=== PATIENT | female | born 1965 | race Caucasian/White ===

== ENCOUNTER → 2016-07-11 | Outpatient (CLI) | payer BC ==
[~2016-07-11] MED LIST: ACHD5005 PO; ASPI-587 PO; AZIT-21 PO; CLCX200C PO; CPR500T PO; CRESTOR40 MG PO; DEXL60CA PO; ESTR2TAB4 PO; GABA-488 PO; GBPN100C PO; HYDR-3454 PO; HYDR-3720 PO; HYDR200T46 PO; MAGN250T7 PO; NAPR220C11 PO; NF-DICLTB PO; OMEG1CAP24 PO; ONDA4TAB11 PO; PARO40TA2 PO; PRX20T PO; ROSU10TA12 PO; SIMV20TA3 PO; TOPI25TA2 PO; TOPI50TA2 PO; VERA120C2 PO
--- OUTSIDE RECORDS SUMMARY | 2016-07-11 07:39 | XMS REPORT | Continuity of Care Document ---
Author Author [facility] Organization [facility] Address Unknown Phone Unavailable Care Team Providers Care Medical Office Assistant Name Role Phone PCP Unavailable Source Comments Some departments are not documenting in the electronic medical record. If you do not see the information that you expected, contact Release of Information in the Health Information Management department at [phone] for further assistance in locating additional records.[facility] Active Allergies and Adverse Reactions Not on File Current Medications Not on file Active Problems Not on file Social History Tobacco Use Types Packs/Day Years Used Date Never Assessed Plan of Care Health Maintenance Due Date Last Done Comments Physical (Comprehensive) 1973 Exam Pertussis Vaccine 1977 Tetanus Vaccine 1983 Cervical Cancer Screening 1987 Breast Cancer Screening 2006 Influenza Vaccine 01/21/2016 Results from Last 3 Months Not on file
--- NOTE | 2016-07-11 08:45 | Diagnostic Imaging Report ---
PROCEDURE: MRI lumbar spine. TECHNIQUE: Multiplanar, multisequence MRI of the lumbar spine was performed without contrast. INDICATION: Low back pain. COMPARISON: None. FINDINGS: Normal alignment. Vertebral body heights are maintained. Benign hemangioma in the L2 vertebral body. Bone marrow signal is otherwise unremarkable. No abnormal signal in the conus which terminates at L1. Normal configuration of the cauda equina without evidence of arachnoiditis. The visualized paravertebral soft tissue are unremarkable. At L4-L5, there is a right subarticular through extraforaminal disc extrusion that contacts both the exiting L4 and traversing L5 nerve roots. There is no other spinal canal, lateral recess or neural foraminal narrowing. There is moderate degenerative facet arthropathy throughout the lumbar spine. IMPRESSION: 1. Disc extrusion at L4-L5 contacts both the right exiting L4 and traversing L5 nerve roots. 2. Moderate degenerative facet arthropathy throughout the lumbar spine. Dictated by: Dictated on workstation # [id number]
== END ==
LOC: RAD 07:35
PROVIDERS: ATTEND Family Medicine
DX: M51.26 Other intervertebral disc displacement, lumbar region (principal)
CPT/HCPCS: 72148

== ENCOUNTER 2016-07-22 11:54 | Outpatient (CLI) | payer BC ==
[~2016-07-22] VITALS: Ht 172.7 cm; Wt 95.3 kg
--- OUTSIDE RECORDS SUMMARY | 2016-07-22 11:57 | XMS REPORT | Continuity of Care Document ---
Author Author [facility] Organization [facility] Address Unknown Phone Unavailable Care Team Providers Care Director Of Integrated Marketing Name Role Phone PCP Unavailable Source Comments Some departments are not documenting in the electronic medical record. If you do not see the information that you expected, contact Release of Information in the Health Information Management department at [phone] for further assistance in locating additional records.[facility] Active Allergies and Adverse Reactions Not on [...]
[2016-07-22] MEDS ORDERED: BUPIVACAINE 0.25% 30 ML (SENSORCAINE) VIAL ONE (12:09)
[2016-07-22] MEDS ORDERED: TRIAMCINOLONE ACET (KENALOG-40) 40 MG/ML 1 ML VIAL ONE (12:09)
[2016-07-22 12:21] VITALS: BP 137/90
[2016-07-22 12:54] VITALS: BP 138/81
--- NOTE | 2016-07-22 14:51 | Pain Medicine-Procedure ---
Procedure Pre-Op/Post-Op Diagnosis Diagnosis: disc disorder with radiculopathy, lumbar Indications for Operation low back pain Attending Surgeon Jaye Procedure Date of Service: Jul 22, 2016 Procedure: Lumbar Epidural Steroid Injection at the L4-L5 level under Fluoroscopic Guidance Procedure: Patient was identified in the holding area. After risks, benefits, and alternatives were discussed with the patient, informed consent was obtained. Patient was brought to the fluoroscopy suite and placed prone on the procedure room table. A time out was performed. Vital signs were monitored throughout the procedure. The patients low back was prepped and draped in the usual sterile fashion. The patients skin was anesthetized using 2% Lidocaine. A Tuohy needle was inserted and advanced to the L4-L5 epidural space under fluoroscopic guidance using the loss of resistance technique and intermittent projection of fluoroscopy. There was no paresthesia with needle placement. The needle position was confirmed in both the AP and lateral view.no contrast was used secondary to history of allergy to contrast dye After negative aspiration for heme or CSF, 2 ml of 0.25% Bupivicaine, 2ml of preservative free normal saline, and 80mg of Kenalog was injected. The needle was removed and a sterile bandage was placed and the patient was transferred to the recovery area in stable condition. After a brief period of observation, patient was discharged to home with no new neurological deficits and no apparent complications. Complications none MELIA TEJEDA MD Jul 22, 2016 2:51 pm
== END 2016-07-22 12:55 | disposition home or self-care (01) ==
LOC: CARD 11:54
PROVIDERS: ATTEND Pain Medicine Pain Medicine
DX: M51.16 Intervertebral disc disorders with radiculopathy, lumbar region (principal); M47.816 Spondylosis without myelopathy or radiculopathy, lumbar region; Z79.899 Other long term (current) drug therapy
CPT/HCPCS: 62323

== ENCOUNTER 2016-08-15 12:03 | Outpatient (CLI) | payer BC ==
[~2016-08-15] VITALS: Ht 172.7 cm; Wt 95.3 kg
[2016-08-15] MEDS ORDERED: BUPIVACAINE 0.25% 30 ML (SENSORCAINE) VIAL ONE (12:13)
[2016-08-15] MEDS ORDERED: TRIAMCINOLONE ACET (KENALOG-40) 40 MG/ML 1 ML VIAL ONE (12:13)
[2016-08-15 12:18] VITALS: BP 146/103
[2016-08-15 12:58] VITALS: BP 164/99
--- NOTE | 2016-08-15 14:04 | Pain Medicine-Procedure ---
Procedure Pre-Op/Post-Op Diagnosis Diagnosis: disc disorder with radiculopathy, lumbar Indications for Operation Low back pain Attending Surgeon Jaye Procedure Date of Service: Aug 15, 2016 Procedure: Lumbar Epidural Steroid Injection at the L4-L5 level under Fluoroscopic Guidance Procedure: Patient was identified in the holding area. After risks, benefits, and alternatives were discussed with the patient, informed consent was obtained. Patient was brought to the fluoroscopy suite and placed prone on the procedure room table. A time out was performed. Vital signs were monitored throughout the procedure. The patients low back was prepped and draped in the usual sterile fashion. The patients skin was anesthetized using 2% Lidocaine. A Tuohy needle was inserted and advanced to the L4-L5 epidural space under fluoroscopic guidance using the loss of resistance technique and intermittent projection of fluoroscopy. There was no paresthesia with needle placement. The needle position was confirmed in both the AP and lateral view. No contrast was used secondary to history of contrast allergy, after negative aspiration for heme or CSF, 2 ml of 0.25% Bupivicaine, 2ml of preservative free normal saline, and 80mg of Kenalog was injected. The needle was removed and a sterile bandage was placed and the patient was transferred to the recovery area in stable condition. After a brief period of observation, patient was discharged to home with no new neurological deficits and no apparent complications. Complications None MELIA TEJEDA MD Aug 15, 2016 2:04 pm
== END 2016-08-15 13:01 | disposition home or self-care (01) ==
LOC: CARD 12:03
PROVIDERS: ATTEND Pain Medicine Pain Medicine
DX: M51.16 Intervertebral disc disorders with radiculopathy, lumbar region (principal); Z79.899 Other long term (current) drug therapy
CPT/HCPCS: 62323

== ENCOUNTER 2017-01-26 15:21 | Outpatient (CLI) | payer BC ==
[~2017-01-26] VITALS: Ht 172.7 cm; Wt 91.6 kg
[2017-01-26] MEDS ORDERED: methylPREDNISolone 80 MG/ML (DEPO MEDROL) VIAL ONE (15:23)
[2017-01-26 15:37] VITALS: BP 154/95
[2017-01-26 15:52] VITALS: BP 161/100
--- NOTE | 2017-01-31 11:33 | OPERATIVE REPORT ---
DATE OF SERVICE: DIAGNOSIS: Lumbar radiculopathy. PROCEDURE: Fluoroscopic guided interlaminar epidural steroid injection. PROCEDURE IN DETAIL: After obtaining informed consent from the patient, the patient's chart was reviewed. The patient was then brought to the procedure room and placed in the prone position. A timeout was performed. The back was prepped with antiseptic solution and under fluoro guidance, the patient's lumbar spine was identified at the level of L5-S1. The S1 vertebra was identified with fluoro guidance and approximately 2 mL of 1.5% lidocaine solution was used to anesthetize the skin directly down to the pedicle of the S1 and under fluoro guidance, the tract was anesthetized up to the interlaminar space and the ligamentum flavum. This needle was withdrawn. Then, a 20-gauge 3.5 inch Tuohy needle was then directed following the same tract that was anesthetized with the spinal needle. Using loss of resistance, the epidural space was identified and then the syringe was switched for contrast solution which was injected, approximately 1 mL. After secondary confirmation of epidural access, another syringe was placed and 80 mg of Depo-Medrol was injected. The Tuohy needle was then flushed out with approximately 2 mL of the normal saline used from the loss of resistance syringe. Band-Aids were applied to all the procedure sites. The patient tolerated the procedure well and was taken to the recovery room in stable condition. COMPLICATIONS: None. Job ID: [id number] DocumentID: [id number] Dictated Date: 01/30/2017 10:46:28 We[employer] Eradicator Date: 01/30/2017 12:27:00 Dictated By: DANNIE MCCRAY DO
== END 2017-01-26 16:03 ==
LOC: CARD 15:21
PROVIDERS: ATTEND Pain Medicine Interventional Pain Medicine
DX: M51.37 Other intervertebral disc degeneration, lumbosacral region (principal); M47.817 Spondylosis without myelopathy or radiculopathy, lumbosacral region; M54.16 Radiculopathy, lumbar region
CPT/HCPCS: 62323

== ENCOUNTER 2018-08-06 12:53 | Emergency (ER) | payer BC ==
[~2018-08-06] VITALS: Ht 172.7 cm; Wt 83.5 kg
--- OUTSIDE RECORDS SUMMARY | 2018-08-06 13:11 | XMS REPORT | Clinical Summary ---
Author Author [facility] Organization [facility] Address Unknown Phone Unavailable Care Team Providers Care Shower Screen Installer Name Role Phone Sweetie Bell MD PCP Morgan Mi OD Unavailable Source Comments Some departments are not documenting in the electronic medical record. If you do not see the information that you expected, contact Release of Information in the Health Information Management department at [phone] for further assistance in locating additional records.[facility] Allergies Comments Active Allergy Reactions Severity Noted Date Fenofibrate Micronized DIARRHEA, Low 09/06/2017 STOMACH UPSET Sulfamethoxazole-Trimetho UNKNOWN Low 09/06/2017 prim Cephalosporins HIVES Medium 08/29/2017 Rosuvastatin UNKNOWN Low 09/06/2017 Cefadroxil UNKNOWN Low 09/06/2017 Iodine UNKNOWN Low 09/06/2017 Atorvastatin UNKNOWN Low 09/06/2017 Cream Metronidazole RASH Medium 03/05/2018 Meloxicam UNKNOWN Low 09/06/2017 Morphine UNKNOWN Low 09/06/2017 Morphine Sulfate UNKNOWN Low 08/29/2017 IVP DYE Unclassified Drug UNKNOWN Low 09/06/2017 Penicillins HIVES Medium 08/29/2017 Sulfa (Sulfonamide HIVES Medium 08/29/2017 Antibiotics) Simvastatin UNKNOWN Low 09/06/2017 Medications End Date Status Medication Sig Dispensed Refills Start Date Active citalopram (CELEXA) 20 mg Take 40 mg by 0 tablet mouth daily. Active SUMAtriptan (IMITREX) 6 Inject 6 mg 0 mg/0.5 mL injection under the skin once. Active topiramate (TROKENDI XR) Take by 0 200 mg cp24 mouth. Active estradiol (ESTRACE) 2 mg Take 1 mg by 0 tablet mouth daily. Active gabapentin 300 mg Tb24 Take by 0 mouth. Active cholecalciferol (VITAMIN Take 2,000 0 D-3) 1,000 units tablet Units by mouth daily. Active Magnesium 250 mg tab Take by 0 mouth. Active fluocinonide (LIDEX) 0.05 Apply 0 % topical ointment topically to affected area twice daily. Active HYDROcodone/acetaminophen Take 1 tablet 0 (NORCO) 5/325 mg tablet by mouth every 4 hours as needed for Pain Active FEXOFENADINE/PSEUDOEPHEDR Take by 0 INE (LUAN-D 24 HOUR mouth. PO) Active LISINOPRIL PO Take 10 mg by 0 mouth daily. Active desonide(+) (TRIDESILON; Apply 0 DESOWEN; DELONIDE) 0.05 % topically to topical cream affected area daily as needed. Active fluticasone (FLONASE) 50 Apply 2 0 mcg/actuation nasal spray sprays to each nostril as directed daily as needed. Shake bottle gently before using. 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 Active methotrexate PF 25 mg/mL Inject 0.8 mL 8 mL 1 injection under the 8 skin every 7 days. Active Insulin Syringe-Needle Use to 4 Syringe 1 U-100 (BD INSULIN administer 8 SYRINGE) 1 mL 25 gauge x Methotrexate 5/8" syrg weekly injections Active folic acid (FOLVITE) 1 mg Take one 90 tablet 3 tablet tablet by 9 mouth daily. Active tiZANidine (ZANAFLEX) 2 Take one 30 tablet 2 mg tablet tablet by 9 mouth at bedtime as needed. Active prednisone (DELTASONE) 10 60 mg x 4 84 tablet 0 07/16/ mg tablet days, 50 mg x 9 4 days, 40 mg x 4 days, 30 mg x 4 days, 20 mg x 4 days, 10 mg x 4 days, then return to baseline 7.5 Active NIFEdipine XL Take one 30 tablet 5 (PROCARDIA-XL) 30 mg tablet by 9 tablet mouth daily. Active azaTHIOprine (IMURAN) 50 Take 50 mg 180 tablet 0 07/23/201 mg tablet daily for 1 9 week, 75 mg daily for 1 week, and then 100 mg daily thereafter. Active traMADol (ULTRAM) 50 mg Take two 180 tablet 5 tablet tablets by 9 mouth every 8 hours as needed for Pain. Active hydroxychloroquine Take one 180 tablet 1 (PLAQUENIL) 200 mg tablet tablet by 9 mouth twice daily. Take with food. Active prednisone (DELTASONE) 5 Take 1.5 135 tablet 3 201 mg tablet tablets by 9 mouth daily with breakfast. 08/02/2018 Discontinued hydroxychloroquine Take one 180 tablet 1 (PLAQUENIL) 200 mg tablet tablet by 8 mouth twice daily. Take with food. 08/02/2018 Discontinued prednisone (DELTASONE) 5 Take 1.5 135 tablet 0 04/10/201 mg tablet tablets by 8 mouth daily with breakfast. 07/16/2018 Discontinued prednisone (DELTASONE) 5 Take 20 mg po 63 tablet 0 04/10/201 mg tablet qd x 7 d, 15 8 mg qd x 7 d, 10 mg qd x 7 d, then back to baseline dose 7.5 mg once daily. 07/31/2018 Discontinued traMADol (ULTRAM) 50 mg Take two 180 tablet 0 201 tablet tablets by 9 mouth every 8 hours as needed for Pain. Active Problems Problem Noted Date Hypogammaglobulinemia 11/18/2017 Overview: She has a h/o 3 to 4 sinus infections per year on average, and 2 pneumonias in her 4th decade of life. Otherwise, at this time, I don't think this patient has more frequent, severe, or unusual infections than what would be expected for an otherwise healthy individual, based on guidelines from the [employer] for Primary Immune Deficiency, and guidelines from the UpToDate article "Approach to the adult with recurrent infections" authored by Dr. Mario Mathur and literature current through September 2015. Her Postal Delivery Officer checked immunoglobulin levels and she was found to have an IgG 649 in August 2017, with no prior testing for comparison. She has no identifiable secondary etiology found for low IgG level. Her total IgA and IgM levels were normal. We obtained additional evaluation of her immune system. Her diphtheria and tetanus antibodies are appropriately positive indicating memory from past vaccination. She makes an adequate number of pneumococcal serotypes above the reference range of 21/23. T&B cell panel was normal. CBCd and CMP were unremarkable. IgG was mildly low at 600 mg/dL (normal 762-1488 mg/dL). We reviewed the above today. In the past calendar year she's had 1 sinus infection that required an antibiotic, in spring 2017. In the previous calendar year of 2016, she had 3 infections that required antibiotics, and 2 of those 3 infections required back to back antibiotics. We discussed that her mildly low IgG level may or may not predispose her to more frequent or severe infections than other health adults. We discussed options of continued clinical observation, prophylactic antibiotic regimens, and IgG replacement. We discussed potential risks of each option. At this time, she wishes to continue clinical observation and treat any infections as they arise with antibiotics if needed which is reasonable. She'll follow up in 6 months and we'll repeat IgG level about annually or sooner if infections become more frequent or severe. If she gets severe or more frequent infections she'll contact us. She'll follow up with her PCP for routine vaccination recommendations. She could continue to avoid live vaccines. Chronic rhinitis 11/18/2017 Overview: -current regimen flonase and luan, sometimes luan D PLAN patient reports good control, and denies needs for any changes today Fatigue 11/18/2017 Overview: likely multifactorial recent dx of lupus in 2016 FH of thyroid disorder PLAN will check TSH with reflex T4 today Encounters Care Team Description Date Type Specialty Farideh Meade MD 08/02/2018 Refill Rheumatology Farideh Meade MD Follow-up Phone Call 08/02/2018 Telephone Rheumatology Farideh Meade MD 07/31/2018 Refill Rheumatology Farideh Meade MD 07/25/2018 Refill Rheumatology Farideh Meade MD Follow-up Phone Call 07/23/2018 Telephone Rheumatology Farideh Meade MD 07/16/2018 Hospital Lab Encounter Farideh Meade MD Inflammatory polyarthritis (HCC) (Primary Dx); Discoid lupus; Raynaud's disease without gangrene; 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 Office Visit Rheumatology Farideh Meade MD 06/29/2018 Orders Only Rheumatology Farideh Meade MD 06/25/2018 Refill Rheumatology Farideh Meade MD Labs Only ([facility]) 06/21/2018 Telephone Rheumatology Farideh Meade MD Medication Refill 05/23/2018 Telephone Rheumatology from Last 3 Months Immunizations Name Dates Previously Given Next Due Flu Vaccine=>6 Months 03/05/2018 Quadrivalent PF Family History Medical History Relation Name Comments Arthritis-rheumatoid Father Diabetes Type II Father Heart Attack Father Heart Disease Father Hyperlipidemia Father Hypertension Father Heart Disease Maternal Grandfather Heart Disease Maternal Grandmother Hyperlipidemia Mother Heart Disease Paternal Grandfather Diabetes Type II Paternal Grandmother Asthma Sister Asthma Son Melanoma Neg Hx Relation Name Status Comments Father Maternal Grandfather Maternal Grandmother Mother Paternal Grandfather Paternal Grandmother Sister Son Social History Date Tobacco Use Types Packs/Day Years Used Never Smoker Smokeless Tobacco: Never Used Alcohol Use Drinks/Week oz/Week Comments No Sex Assigned at Date Recorded Not on file Industry Job Start Date Occupation Not on file Not on file Not on file Travel End Travel History Travel Start No recent travel history available. Last Filed Vital Signs Time Taken Vital Sign Reading 07/16/2018 10:50 AM DIRECTOR OF GOLF Blood Pressure 116/63 07/16/2018 10:50 AM [employer]OR OF GOLF Pulse 69 07/16/2018 10:50 AM [employer]OR OF GOLF Temperature 36.4 C (97.5 F) 07/16/2018 10:50 AM DIRECTOR OF GOLF Respiratory Rate 16 07/16/2018 10:50 AM [employer]OR OF GOLF Oxygen Saturation 100% - Inhaled Oxygen - Concentration 07/16/2018 10:50 AM DIRECTOR OF GOLF Weight 83.5 kg (184 lb) 07/16/2018 10:50 AM [employer]OR OF GOLF Height 172.7 cm (5' 7.99") 07/16/2018 10:50 AM [employer]OR OF GOLF Body Mass Index 27.99 Plan of Treatment Health Maintenance Due Date Last Done Comments PHYSICAL (COMPREHENSIVE) 1973 EXAM HIV SCREENING 1981 DTAP/TDAP VACCINES (1 - 1984 Tdap) CERVICAL CANCER SCREENING 1996 BREAST CANCER SCREENING 2006 COLORECTAL CANCER 2016 SCREENING SHINGLES RECOMBINANT 2016 VACCINE (1 of 2) INFLUENZA VACCINE Completed 03/05/2018 Procedures Comments Procedure Name Priority Date/Time Associated Diagnosis C4 COMPLEMENT 4 Add on 07/16/2018 Inflammatory 12:35 PM [employer]OR OF GOLF polyarthritis (HCC) C3 COMPLEMENT 3 Add on 07/16/2018 Inflammatory 12:35 PM [employer] OF GOLF polyarthritis (HCC) ANTI-NUCLEAR Routine 07/16/2018 Inflammatory ANTIBODY(NOE) 12:35 PM [employer] OF GOLF polyarthritis (HCC) ANTI-DNA DOUBLE STRAND Routine 07/16/2018 Inflammatory 12:35 PM [employer] OF GOLF polyarthritis (HCC) THIOPURINE Routine 07/16/2018 Inflammatory METHYLTRANSFERASE RBC 12:35 PM [employer]OR OF GOLF polyarthritis (HCC) C REACTIVE PROTEIN (CRP) Routine 07/16/2018 Inflammatory 12:35 PM [employer]OR OF GOLF polyarthritis (HCC) SED RATE Routine 07/16/2018 Inflammatory 12:35 PM [employer]OR OF GOLF polyarthritis (HCC) CBC AND DIFF Routine 07/16/2018 Inflammatory arthritis 12:35 PM [employer]OR OF GOLF COMPREHENSIVE METABOLIC Routine 07/16/2018 Inflammatory arthritis PANEL 12:35 PM [employer]OR OF GOLF CBC AND DIFF 06/29/2018 10:01 AM [employer] OF GOLF COMPREHENSIVE METABOLIC 06/29/2018 PANEL 10:01 AM DIRECTOR OF GOLF from Last 3 Months Results * THIOPURINE METHYLTRANSFERASE RBC (07/16/2018 12:35 PM DIRECTOR OF GOLF) Thiopurine S-Methyl 23.9 (L) REFERENCE LAB (TPMT) Comment: Reference range: 24.0 to 44.0 Unit: U/mL INTERPRETIVE INFORMATION: Thiopurine Methyltransferase, RBC Normal TPMT activity: 24.0-44.0 U/mL................Individual s are predicted to be at low risk of bone marrow toxicity (myelosuppression) as a consequence of standard thiopurine therapy; no dose adjustment is recommended. Intermediate TPMT activity: 17.0-23.9 U/mL................Individual s are predicted to be at intermediate risk of bone marrow toxicity (myelosuppression) as a consequence of standard thiopurine therapy; a dose reduction and therapeutic drug management is recommended. Low TPMT activity: less than 17.0 U/mL...........Individuals are predicted to be at high risk of bone marrow toxicity (myelosuppression) as a consequence of standard thiopurine dosing. It is recommended to avoid the use of thiopurine drugs. High TPMT activity: greater than 44.0 U/mL........Individuals are not predicted to be at risk for bone marrow toxicity (myelosuppression) as a consequence of standard thiopurine dosing, but may be at risk for therapeutic failure due to excessive inactivation of thiopurine drugs. Individuals may require higher than the normal standard dose. Therapeutic drug management is recommended. The TPMT, RBC assay is used as a screen to detect individuals with low and intermediate TPMT activity who may be at risk for myelosuppression when exposed to standard doses of thiopurines, including azathioprine (Imuran) and 6-mercaptopurine (Purinethol). TPMT is the primary metabolic route for inactivation of thiopurine drugs in the bone marrow. When TPMT activity is low, it is predicted that proportionately more 6-mercaptopurine can be converted into the cytotoxic 6-thioguanine nucleotides that accumulate in the bone marrow causing excessive toxicity. The activity of TPMT is measured by the nanomoles of 6-methylmercaptopurine (inactive metabolite) produced per 1 mL of packed red blood cells, (U/mL). TPMT phenotype testing does not replace the need for clinical monitoring of patients treated with thiopurine drugs. Genotype for TPMT cannot be inferred from TPMT activity (phenotype). Phenotype testing should not be requested for patients currently treated with thiopurine drugs. Current TPMT phenotype may not reflect future TPMT phenotype, particularly in patients who received blood transfusion within 30-60 days of testing.TPMT enzyme activity can be inhibited by several drugs such as: naproxen (Aleve), ibuprofen (Advil, Motrin), ketoprofen (Orudis), furosemide (Lasix), sulfasalazine (Azulfidine), mesalamine (Asacol), olsalazine (Dipentum), mefenamic acid (Ponstel), thiazide diuretics, and benzoic acid inhibitors. TPMT inhibitors may contribute to falsely low results; patients should abstain from these drugs for at least 48 hours prior to TPMT testing. Falsely low results may also occur as a result of inappropriate specimen handling and hemolysis. Test developed and characteristics determined by [facility]. See Compliance Statement B: [email or web address] Performed by [facility], [facility] [place] [address] [email or web address], Michael Del Valle MD, Lab. Director Specimen Blood Performing Organization Address City/[facility]/Zipcode Phone Number REFERENCE LAB REFERENCE LAB See results for address. * ANTI-DNA DOUBLE STRAND (07/16/2018 12:35 PM DIRECTOR OF GOLF) DNA Double Strand AB <10 <10 TITER [facility] Specimen Blood Performing Organization Address [facility]/Zipcode Phone Number [facility] [address] [place] [address] * SED RATE (07/16/2018 12:35 PM DIRECTOR OF GOLF) Sed Rate -ESR 5 0 - 30 MM/HR MAIN LAB Specimen Blood Performing Organization Address [facility]/Zipcode Phone Number [facility] [address] [place] [address] * CBC AND DIFF (07/16/2018 12:35 PM DIRECTOR OF GOLF) Only the most recent of 2 results within the time period is included. White Blood Cells 8.6 4.5 - 11.0 K/UL [facility] RBC 4.23 4.0 - 5.0 M/UL [facility] Hemoglobin 13.0 12.0 - 15.0 GM/DL [facility] Hematocrit 39.6 36 - 45 % [facility] MCV 93.6 80 - 100 FL [facility] MCH 30.7 26 - 34 PG [facility] MCHC 32.8 32.0 - 36.0 G/DL [facility] RDW 14.9 11 - 15 % [facility] Platelet Count 362 150 - 400 K/UL [facility] MPV 7.8 7 - 11 FL [facility] Neutrophils 80 (H) 41 - 77 % [facility] Lymphocytes 15 (L) 24 - 44 % [facility] Monocytes 4 4 - 12 % [facility] Eosinophils 1 0 - 5 % [facility] Basophils 0 0 - 2 % [facility] Absolute Neutrophil Count 6.80 1.8 - 7.0 K/UL [facility] Absolute Lymph Count 1.30 1.0 - 4.8 K/UL [facility] Absolute Monocyte Count 0.30 0 - 0.80 K/UL [facility] Absolute Eosinophil Count 0.10 0 - 0.45 K/UL [facility] Absolute Basophil Count 0.00 0 - 0.20 K/UL [facility] Specimen Blood Performing Organization Address City/[facility] Phone [facility] [address] [place] [address] * C3 COMPLEMENT 3 (07/16/2018 12:35 PM DIRECTOR OF GOLF) [facility] C3 82.0 (L) 88 - 200 MG/DL MAIN LAB Performing Organization Address City/[facility] Phone Number [facility] [address] [place] [address] * C4 COMPLEMENT 4 (07/16/2018 12:35 PM DIRECTOR OF GOLF) [facility] C4 40.0 10 - 49 MG/DL MAIN LAB Performing Organization Address [facility] Phone Number [facility] LAB [address] [place] [address] * C REACTIVE PROTEIN (CRP) (07/16/2018 12:35 PM DIRECTOR OF GOLF) C-Reactive Protein 0.25 <1.0 MG/DL MAIN LAB Specimen Blood Performing Organization Address [facility] Phone Number [facility] LAB [address] [place] [address] * ANTI-NUCLEAR ANTIBODY(NOE) (07/16/2018 12:35 PM DIRECTOR OF GOLF) NOE Screen <80 <80 TITER MAIN LAB Specimen Blood Performing Organization Address [facility] Phone Number MA[facility] LAB [address] [place] [address] * COMPREHENSIVE METABOLIC PANEL (07/16/2018 12:35 PM DIRECTOR OF GOLF) Only the most recent of 2 results within the time period is included. Sodium 137 137 - 147 MMOL/L [facility] Potassium 3.9 3.5 - 5.1 MMOL/L MAIN LAB Chloride 105 98 - 110 MMOL/L [facility] Glucose 105 (H) 70 - 100 MG/DL [facility] Blood Urea Nitrogen 11 7 - 25 MG/DL [facility] Creatinine 0.71 0.4 - 1.00 MG/DL [facility] Calcium 9.4 8.5 - 10.6 MG/DL [facility] Total Protein 7.1 6.0 - 8.0 G/DL [facility] Total Bilirubin 0.3 0.3 - 1.2 MG/DL [facility] Albumin 4.7 3.5 - 5.0 G/DL [facility] Alk Phosphatase 37 25 - 110 U/L [facility] AST (SGOT) 16 7 - 40 U/L [facility] CO2 25 21 - 30 MMOL/L [facility] ALT (SGPT) 16 7 - 56 U/L [facility] Anion Gap 7 3 - 12 [facility] eGFR Non >60 >60 mL/min [facility] Comment: The eGFR is not validated for use in drug dosing adjustments.Continue to use estimated creatinine clearance per dosing reference text.Please contact the Clinical Pharmacist for questions. eGFR >60 >60 mL/min [facility] Comment: The eGFR is not validated for use in drug dosing adjustments.Continue to use estimated creatinine clearance per dosing reference text.Please contact the Clinical Pharmacist for questions. Specimen Blood Performing Organization Address City/State/Zipcode Phone Number [facility] [address] [place] [address] from Last 3 Months Insurance Payer Benefit Subscriber ID Type Phone Address Plan / Group [employer] xxxxxxxxxxxx PPO OUT OF STATE Advance Directives Patient has advance care planning documents on file. For more information, please contact: [facility] [address] [place] [address]
--- OUTSIDE RECORDS SUMMARY | 2018-08-06 13:11 | XMS REPORT | Encounter Summary ---
Author Author [facility] Organization [facility] Address Unknown Phone Unavailable Care Team Providers Care Full Time Paramedic Name Role Phone Sweetie Bell MD PCP Morgan Mi OD Unavailable Reason for Visit * Reason Comments Medication Refill Encounter Details Care Team Description Date Type Department Farideh Meade MD [id number] [place], [place] [phone] 07/25/2018 Refill [facility]-R[facility] [address] [address] [address] [place], [place] [phone] Social History Date Tobacco Use Types Packs/Day Years Used Never Smoker Smokeless Tobacco: Never Used Alcohol Use Drinks/Week oz/Week Comments No Sex Assigned at Date Recorded Not on file Industry Job Start Date Occupation Not on file Not on file Not on file Travel End Travel History Travel Start No recent travel history available. as of this encounter Functional Status Date of Assessment Functional Status Response 07/16/2018 Does the patient have a hearing impairment: No 07/16/2018 Does the patient have a visual impairment: Yes 07/16/2018 Does the patient have impaired ambulation: Yes 07/16/2018 Does the patient have an activity of daily living No (ADL) impairment: 07/16/2018 Does the patient have an instrumental activity of No daily living (IADL) impairment: Date of Assessment Cognitive Status Response 07/16/2018 Does the patient have a cognitive impairment: No as of this encounter Miscellaneous Notes * Telephone Encounter - Kristan Greco RN - 07/25/2018 9:49 AM [facility] Pharmacy is requesting a refill of MTX. Refusal faxed to [facility] (f: [phone]) as patient has switched to Imuran. TEACHER in this encounter Plan of Treatment Not on fileas of this encounter Visit Diagnoses Not on filein this encounter
--- OUTSIDE RECORDS SUMMARY | 2018-08-06 13:11 | XMS REPORT | Encounter Summary ---
Author Author [facility] Organization [facility] Address Unknown Phone Unavailable Care Team Providers Care Correctional Substance Abuse Counselor Name Role Phone Sweetie Bell MD PCP Morgan Mi OD Unavailable Reason for Visit * Reason Comments Follow-up Phone Call Encounter Details Care Team Description Date Type Department Farideh Meade MD [id number] [place], [place] [phone] Follow-up Phone Call 08/02/2018 Telephone [facility]-Rheumatology [address] [address] [address] [place], [place] [phone] Social History Date Tobacco Use Types Packs/Day [...] Telephone Encounter - Kristan Greco RN - 08/02/2018 3:48 PM CDT Pharmacy is requesting a refill of Plaquenil. Patient last seen 07/16/2018. Patient scheduled for follow-up 08/31/2018. Last eye exam 03/19/2018. Refilled per protocol. ----- Message ----- From: Danyelle Vásquez Sent: 08/02/2018 10:34 AM To: Jason Mcnamara Rheumatology Nurse Subject: Prescription Question ----- Message from Jason Pearson, Generic sent at 08/02/2018 10:34 AM CDT ----- I will be out of my Hydroxycloriquine (plaquenil) 200 mg on this Monday. [facility] does not have any refills. May I get refills on this prescription please? It will be about 3 weeks before I am out but then I will need refills again on my prednisone 5mg at that time too. Thanks, Danyelle Vásquez in this encounter Plan of Treatment Not on fileas of this encounter Visit Diagnoses Not on filein this encounter
--- OUTSIDE RECORDS SUMMARY | 2018-08-06 13:11 | XMS REPORT | Encounter Summary ---
Author Author [facility] Organization [facility] Address Unknown Phone Unavailable Care Team Providers Care Manager Fleet Name Role Phone Sweetie Bell MD PCP Morgan Mi OD Unavailable Reason for Visit * Reason Comments Medication Refill Encounter Details Care Team Description Date Type Department Farideh Meade MD [address] [place], [place] [phone] 08/02/2018 Refill [facility]-Rheumatology [address] [address] [address] [place], [place] [phone] Social History Date Tobacco Use Types Packs/Day [...] Encounter - Kristan Greco RN - 08/02/2018 3:52 PM CDT Pharmacy is requesting a refill of prednisone 7.5mg daily once taper from 2018 completed. Patient last seen 07/16/2018. Patient scheduled for follow-up 04/2019. Routing to Dr. Meade for approval. in this encounter Plan of Treatment Not on fileas of this encounter Visit Diagnoses Not on filein this encounter
--- OUTSIDE RECORDS SUMMARY | 2018-08-06 13:11 | XMS REPORT | Encounter Summary ---
Author Author [facility] Organization [facility] Address Unknown Phone Unavailable Care Team Providers Care 411 Directory Assistance Operator Name Role Phone Sweetie Bell MD PCP Morgan Mi OD Unavailable Reason for Visit * Reason Comments Medication Refill Encounter Details Care Team Description Date Type Department Farideh Meade MD [id number] [place], [place] [phone] 07/31/2018 Refill [facility] Physicians-Rheumatology [address] [address] [address] [place], [place] [phone] Social History Date Tobacco Use Types Packs/Day [...] Encounter - Kristan Greco RN - 08/02/2018 9:50 AM CDT Called in script to [facility]. * Telephone Encounter - Kristan Greco RN - 07/31/2018 2:02 PM CDT Patient is requesting a refill of tramadol. Patient last seen 07/16/2018. Patient scheduled for follow-up 08/31/2018. Routing to Dr. Meade for approval. ----- Message ----- From: Danyelle Vásquez Sent: 07/30/2018 6:38 PM To: Jason Mcnamara Rheumatology Nurse Subject: Prescription Question ----- Message from Familia Galvan sent at 07/30/2018 6:38 PM CDT ----- I am requesting a refill on my tramadol please. Dr. Meade said that she would refill it on my recent visit. I don't think [facility] received this refill. I am now out of this medicine as of today. Thank you. Danyelle Vásquez in this encounter Plan of Treatment Not on fileas of this encounter Visit Diagnoses Not on filein this encounter
--- OUTSIDE RECORDS SUMMARY | 2018-08-06 13:12 | XMS REPORT | Encounter Summary ---
Author Author [facility] Organization [facility] Address Unknown Phone Unavailable Care Team Providers Care Fire Boat Engineer Name Role Phone Sweetie Bell MD PCP Morgan Mi OD Unavailable Encounter Details Care Team Description Date Type Department Farideh Meade MD [address] [facility] [id number] [place] [address] 06/29/2018 Orders Only [facility] Physicians - Internal Medicine [address] [place] [address] Social History Date Tobacco Use Types Packs/Day Years Used Never Smoker Smokeless Tobacco: Never Used Alcohol Use Drinks/Week oz/Week Comments No Sex Assigned at Date Recorded Not on file Industry Job Start Date Occupation Not on file Not on file Not on file Travel End Travel History Travel Start No recent travel history available. as of this encounter Plan of Treatment Not on fileas of this encounter Procedures Comments Procedure Name Priority Date/Time Associated Diagnosis CBC AND DIFF 06/29/2018 10:01 AM BACKEND JAVA DEVELOPER COMPREHENSIVE METABOLIC 06/29/2018 PANEL 10:01 AM BACKEND JAVA DEVELOPER in this encounter Results * CBC AND DIFF (06/29/2018 10:01 AM BACKEND JAVA DEVELOPER) White Blood Cells 8.02 4.0 - 11.0 T/CMM [facility] RBC 4.14 4.0 - 5.6 x10e6/uL [facility] Hemoglobin 12.5 12.0 - 16.3 GM/DL [facility] Hematocrit 40.7 37.1 - 49.6 % [facility] Comment: Due to new instrumentation, as of Feb some normal reference ranges have changed. MCV 98.3 81.2 - 102.0 fl [facility] MCH 30.2 26.7 - 32.2 pg [facility] MCHC 30.7 30.3 - 35.0 g/dL [facility] RDW 14.3 12.0 - 14.5 % [facility] Platelet Count 327 150 - 450 T/CMM [facility] MPV 9.5 9.5 - 12.5 fl [facility] Absolute Neutrophil Count 6.12 1.5 - 8.0 T/CMM [facility] Neutrophils 76.3 (H) 34.0 - 75.0 % [facility] Absolute Lymph Count 1.37 0.6 - 6.0 T/CMM [facility] Lymphocytes 17.1 17.0 - 50.0 % [facility] Absolute Monocyte Count 0.40 0 - 1.1 T/CMM [facility] Monocytes 5.0 4.0 - 12.0 % [facility] Absolute Eosinophil Count 0.08 0 - 0.6 T/CMM [facility] Eosinophils 1.0 0 - 6 % [facility] Absolute Basophil Count 0.03 0 - 0.2 T/CMM [facility] Basophils 0.4 0 - 2.0 % [facility] Comment: REPORT COMMENT: FASTING:NO Test Performed at: [facility] [address] [employer] [address] [place], [place] [id number] [facility] Organization Address City/State/Zipcode Phone Number [facility] [facility] [address] [place] [address] * COMPREHENSIVE METABOLIC PANEL (06/29/2018 10:01 AM BACKEND JAVA DEVELOPER) Glucose 92 65 - 105 mg/dL [facility] Blood Urea Nitrogen 13 7 - 17 mg/dL [facility] Creatinine 0.8 0.52 - 1.04 mg/dL [facility] eGFR Non 80 SEE BELOW mL/min [facility] Comment: The GFR is calculated using a modified MDRD calculation. This GFR should not be used to determine patient medication dosages.The Cockcroft-Gault calculation should be used to determine medication dosage. It is recommended that this formula not be used with patients of extreme body size or muscle mass (e.g. obese, severely malnourished, amputees, paraplegics or other muscle wasting diseases) or with unusual dietary intake (e.g. vegetarian, creatine supplements, etc.). REFERENCE for GLOMERULAR FILTRATION RATE AVERAGE GFR FOR 50-59 YEARS OLD=93 mL/min/1.73 sq.meters CHRONIC KIDNEY DISEASE LESS THAN 60 mL/min/1.73 sq.meters KIDNEY FAILURE LESS THAN 15 mL/min/1.73 sq.meters THIRD NATIONAL HEALTH AND NUTRITION EXAMINATION SURVEY 2002 BUN/Creatinine Ratio 16 10 - 30 [facility] Sodium 138 137 - 145 mmol/L [facility] Potassium 4.3 3.5 - 5.1 mmol/L [facility] Chloride 102 98 - 107 mmol/L [facility] CO2 26 20 - 30 mmol/L [facility] Calcium 9.4 8.4 - 10.2 mg/dL [facility] Total Protein 6.4 6.3 - 8.2 g/dL [facility] Albumin 4.2 3.5 - 5.0 g/dL [facility] Globulin 2.2 (L) 2.3 - 4.0 g/dL [facility] Albumin/Globulin Ratio 1.9 1.0 - 2.5 [facility] Total Bilirubin 0.2 0.2 - 1.3 mg/dL [facility] Alk Phosphatase 38 38 - 126 U/L [facility] AST (SGOT) 17 16 - 43 U/L [facility] ALT (SGPT) 17 0 - 35 U/L [facility] Comment: Test Performed at: [facility] [address] [employer] [address] [id number] [address] QUICK Performing Organization Address City/State/Zipcode Phone Number [facility] [address] [place] [address] in this encounter Visit Diagnoses Not on filein this encounter
--- OUTSIDE RECORDS SUMMARY | 2018-08-06 13:12 | XMS REPORT | Encounter Summary ---
Author Author [facility] Organization [facility] Address Unknown Phone Unavailable Care Team Providers Care Relations Liaison Name Role Phone Sweetie Bell MD PCP Morgan Mi OD Unavailable Reason for Visit * Reason Comments Medication Refill Encounter Details Care Team Description Date Type Department Farideh Meade MD [address] [place], [place] [phone] Medication Refill 05/23/2018 Telephone [facility] Physicians-Rheumatology [address] [address] [address] [place], [place] [phone] Social History Date Tobacco Use Types Packs/Day Years Used Never Smoker Smokeless Tobacco: Never Used Alcohol Use Drinks/Week oz/Week Comments No Sex Assigned at Date Recorded Not on file Industry Job Start Date Occupation Not on file Not on file Not on file Travel End Travel History Travel Start No recent travel history available. as of this encounter Miscellaneous Notes * Telephone Encounter - Edd Correa RN - 05/23/2018 2:03 PM NUT AND BOLT ASSEMBLER Called in Tramadol Rx. Mentioned pt can pick it up on 05-25-18. Letting pt know via [employer] AND BOLT ASSEMBLER * Telephone Encounter - Farideh Meade MD - 05/23/2018 12:50 PM NUT AND BOLT ASSEMBLER Refilled tramadol as has been moth exterminator medication to help with pain management. AND BOLT ASSEMBLER * Telephone Encounter - Edd Correa RN - 05/23/2018 10:10 AM NUT AND BOLT ASSEMBLER Pt requesting a refill of Tramadol. Patient last seen 03-05-18 (Dr. Pyle). Follow up scheduled 07-16-18 (Dr. Meade). Per [facility] note from 11-17-17, "refilled tramadol and tizanidine per pts request but recommend that she use them only as needed and sparingly." Routing to Dr. Meade for review and approval of Tramadol AND BOLT ASSEMBLER * Telephone Encounter - Edd Correa RN - 05/23/2018 10:09 AM NUT AND BOLT ASSEMBLER Regarding: FW: Prescription Question Contact: ----- Message ----- From: Danyelle Vásquez Sent: 05/23/2018 9:55 AM To: Jason Mcnamara Rheumatology Nurse Subject: Prescription Question ----- Message from Familia Galvan sent at 05/23/2018 9:55 AM NUT AND BOLT ASSEMBLER ----- I will be out of my tramadol 50 mg tablets within 4 days. May I have a refill on this prescription please? Thank you, Danyelle Vásquez AND BOLT ASSEMBLER in this encounter Plan of Treatment Not on fileas of this encounter Visit Diagnoses Not on filein this encounter
--- OUTSIDE RECORDS SUMMARY | 2018-08-06 13:12 | XMS REPORT | Encounter Summary ---
Author Author [facility] Organization [facility] Address Unknown Phone Unavailable Care Team Providers Care Digital Data Analyst Name Role Phone Sweetie Bell MD PCP Morgan Mi OD Unavailable Reason for Visit * Reason Comments Labs Only [facility] Encounter Details Care Team Description Date Type Department Farideh Meade MD [id number] [place], [place] [phone] Labs Only ([facility]) 06/21/2018 Telephone [facility] Physicians-Rheumatology [address] [address] [address] [place], [place] [phone] Social History Date Tobacco Use Types Packs/Day [...] Telephone Encounter - Edd Correa RN - 06/21/2018 9:14 AM DIGITAL CONTENT MANAGER Received fax to renew pt's CMP and CBC with Diff for [facility] under Dr. Pyle. Reordering under Dr. Meade Faxed standing labs to [facility] at [phone]. Not a working fax number refaxed to [phone] and received fax confirmation TAL CONTENT MANAGER in this encounter Plan of Treatment Not on fileas of this encounter Visit Diagnoses Diagnosis Inflammatory arthritis - Primary Unspecified inflammatory polyarthropathy in this encounter
--- OUTSIDE RECORDS SUMMARY | 2018-08-06 13:12 | XMS REPORT | Encounter Summary ---
Author Author [facility] Organization [facility] Address Unknown Phone Unavailable Care Team Providers Care Administrative Personal Assistant Name Role Phone Sweetie Bell MD PCP Morgan Mi OD Unavailable Reason for Visit * Reason Comments Follow-up Phone Call Encounter Details Care Team Description Date Type Department Farideh Meade MD [address] [place], [place] [phone] Follow-up Phone Call 07/23/2018 Telephone [facility] Physicians-Rheumatology [address] [address] [address] [place], [place] [phone] Social History Date Tobacco Use Types Packs/Day [...] Telephone Encounter - Kristan Greco RN - 07/24/2018 12:00 PM ACCOUNT LIAISON Per Dr. Meade, CBC/DIFF, ALT, Creatinine ordered and faxed to [facility], fax: [phone]. Patient notified. Regarding: RE: Prescription Question Contact: ----- Message from Familia Galvan sent at 07/23/2018 4:41 PM ACCOUNT LIAISON ----- Please send the standing lab test orders to [facility] in [place], [place] as I have done them in the past with Dr. Pyle. If you need anything else from me, please don't hesitate to ask. Thank you so much for contacting the pharmacy for me. I appreciate! :) Sincerely, Danyelle Thalia UNT LIAISON * Telephone Encounter - Kristan Greco RN - 07/23/2018 4:23 PM ACCOUNT LIAISON Noted per Dr. Meade regarding 07/16/2018 lab results: "Dear Amita Thalia, I wanted to follow-up that the blood counts, kidney tests, and liver tests were normal. The TPMT test (to evaluate metabolism of azathioprine) is at a level that we can proceed with azathioprine. This will take the place of methotrexate. I would like to start with 50 mg daily for 1 week, 75 mg daily for 1 week, and then 100 mg daily. Will plan for lab monitoring every 2 weeks while the dose is increased and then every 2 months. Will plan to send updated lab orders. Please keep me updated on any side effects of azathioprine. This can include gastrointestinal symptoms such as nausea, abdominal pain, diarrhea, and pancreatitis, low blood counts such as anemia and low white blood cell count, increased infection risk, liver toxicity, and rash. Please let me know if you have any questions and please keep me posted on how you are feeling. Thank you so much, Farideh Meade" E-Rx sent. Advised patient to confirm where to send lab orders. ----- Message from Farideh Meade MD sent at 07/20/2018 8:13 AM ACCOUNT LIAISON ----- Dear Kristan, Could I please get your help with sending prescription for azathioprine and sending monitoring labs to her. Thank you! Farideh UNT LIAISON in this encounter Plan of Treatment Order Schedule Name Priority Associated Diagnoses ONE TIME for 26 Occurrences starting 07/24/2018 until 01/24/2019 CBC AND DIFF Routine Inflammatory polyarthritis (HCC) Therapeutic drug monitoring ONE TIME for 26 Occurrences starting 07/24/2018 until 01/24/2019 ALT (SGPT) Routine Inflammatory polyarthritis (HCC) Therapeutic drug monitoring ONE TIME for 26 Occurrences starting 07/24/2018 until 01/24/2019 CREATININE Routine Inflammatory polyarthritis (HCC) Therapeutic drug monitoring as of this encounter Visit Diagnoses Diagnosis Inflammatory polyarthritis (HCC) - Primary Unspecified inflammatory polyarthropathy Therapeutic drug monitoring Encounter for therapeutic drug monitoring in this encounter
--- OUTSIDE RECORDS SUMMARY | 2018-08-06 13:12 | XMS REPORT | Encounter Summary ---
Author Author [facility] Organization [facility] Address Unknown Phone Unavailable Care Team Providers Care Video Operator Name Role Phone Sweetie Bell MD PCP Morgan Mi OD Unavailable Encounter Details Care Team Description Date Type Department Farideh Meade MD [address] [facility] [place] [address] [phone] 07/16/2018 [facility] [address] [place] [phone] Social History Date Tobacco Use Types Packs/Day [...] cognitive impairment: No as of this encounter Medications at Time of Discharge Start Date End Date Medication Sig Dispensed Refills 01/23/2018 azelaic acid(+) (FINACEA) Apply twice 50 g 3 15 % gel topical gel daily to affected areas on face as needed. cholecalciferol (VITAMIN Take 2,000 0 D-3) 1,000 units tablet Units by mouth daily. citalopram (CELEXA) 20 mg Take 40 mg by 0 tablet mouth daily. 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 estradiol (ESTRACE) 2 mg Take 1 mg by 0 tablet mouth daily. FEXOFENADINE/PSEUDOEPHEDR Take by 0 INE (MARYBEL-D 24 HOUR mouth. PO) fluocinonide (LIDEX) 0.05 Apply 0 % topical ointment topically to affected area twice daily. fluticasone (FLONASE) 50 Apply 2 0 mcg/actuation nasal spray sprays to each nostril as directed daily as needed. Shake bottle gently before using. 06/26/2018 folic acid (FOLVITE) 1 mg Take one 90 tablet 3 tablet tablet by mouth daily. gabapentin 300 mg Tb24 Take by 0 mouth. HYDROcodone/acetaminophen Take 1 tablet 0 (NORCO) 5/325 mg tablet by mouth every 4 hours as needed for Pain 03/19/2018 Insulin Syringe-Needle Use to 4 Syringe 1 U-100 (BD INSULIN administer SYRINGE) 1 mL 25 gauge x Methotrexate 5/8" syrg weekly injections LISINOPRIL PO Take 10 mg by 0 mouth daily. Magnesium 250 mg tab Take by 0 mouth. 03/19/2018 methotrexate PF 25 mg/mL Inject 0.8 mL 8 mL 1 injection under the skin every 7 days. 07/17/2018 NIFEdipine XL Take one 30 tablet 5 (PROCARDIA-XL) 30 mg tablet by tablet mouth daily. 07/16/2018 prednisone (DELTASONE) 10 60 mg x 4 84 tablet 0 mg tablet days, 50 mg x 4 days, 40 mg x 4 days, 30 mg x 4 days, 20 mg x 4 days, 10 mg x 4 days, then return to baseline 7.5 SUMAtriptan (IMITREX) 6 Inject 6 mg 0 mg/0.5 mL injection under the skin once. 06/26/2018 tiZANidine (ZANAFLEX) 2 Take one 30 tablet 2 mg tablet tablet by mouth at bedtime as needed. topiramate (TROKENDI XR) Take by 0 200 mg cp24 mouth. 01/16/2018 08/02/2018 hydroxychloroquine Take one 180 tablet 1 (PLAQUENIL) 200 mg tablet tablet by mouth twice daily. Take with food. 04/10/2018 08/02/2018 prednisone (DELTASONE) 5 Take 1.5 135 tablet 0 mg tablet tablets by mouth daily with breakfast. 06/26/2018 07/31/2018 traMADol (ULTRAM) 50 mg Take two 180 tablet 0 tablet tablets by mouth every 8 hours as needed for Pain. as of this encounter Plan of Treatment Not on fileas of this encounter Procedures Comments Procedure Name Priority Date/Time Associated Diagnosis THIOPURINE Routine 07/16/2018 Inflammatory METHYLTRANSFERASE RBC 12:35 PM FLOORING MECHANIC polyarthritis (HCC) ANTI-DNA DOUBLE STRAND Routine 07/16/2018 Inflammatory 12:35 PM FLOORING MECHANIC polyarthritis (HCC) SED RATE Routine 07/16/2018 Inflammatory 12:35 PM FLOORING MECHANIC polyarthritis (HCC) CBC AND DIFF Routine 07/16/2018 Inflammatory arthritis 12:35 PM FLOORING MECHANIC C3 COMPLEMENT 3 Add on 07/16/2018 Inflammatory 12:35 PM FLOORING MECHANIC polyarthritis (HCC) C4 COMPLEMENT 4 Add on 07/16/2018 Inflammatory 12:35 PM FLOORING MECHANIC polyarthritis (HCC) C REACTIVE PROTEIN (CRP) Routine 07/16/2018 Inflammatory 12:35 PM FLOORING MECHANIC polyarthritis (HCC) ANTI-NUCLEAR Routine 07/16/2018 Inflammatory ANTIBODY(NOE) 12:35 PM FLOORING MECHANIC polyarthritis (HCC) COMPREHENSIVE METABOLIC Routine 07/16/2018 Inflammatory arthritis PANEL 12:35 PM FLOORING MECHANIC in this encounter Results * C4 COMPLEMENT 4 (07/16/2018 12:35 PM FLOORING MECHANIC) Complemnt C4 40.0 10 - 49 MG/DL MAIN LAB Performing Organization Address [facility] Phone Number MA[facility] [address] [place] [address] * C3 COMPLEMENT 3 (07/16/2018 12:35 PM FLOORING MECHANIC) Complemnt C3 82.0 (L) 88 - 200 MG/DL MAIN LAB Performing Organization Address [facility] Phone Number MA[facility] [address] [place] [address] * ANTI-NUCLEAR ANTIBODY(NOE) (07/16/2018 12:35 PM FLOORING MECHANIC) NOE Screen <80 <80 [facility]IN [facility] Specimen Blood Performing Organization [facility] Phone Number MAIN LAB [address] [place] [address] * ANTI-DNA DOUBLE STRAND (07/16/2018 12:35 PM FLOORING MECHANIC) DNA Double Strand AB <10 <10 [facility] MAIN [facility] Specimen Blood Performing Organization Address [facility] Phone Number MAIN LAB [address] [place] [address] * THIOPURINE METHYLTRANSFERASE RBC (07/16/2018 12:35 PM FLOORING MECHANIC) Thiopurine S-Methyl 23.9 (L) REFERENCE LAB (TPMT) [...] hemolysis. Test developed and characteristics determined by [facility]. See Compliance Statement B: [email or web address] [place]/CS Performed by [facility], [address], [facility] [place] [address] [email or web address], Michael Del Valle MD, Lab. Director Specimen Blood Performing Organization Address City/State/Zipcode Phone Number REFERENCE LAB REFERENCE LAB See results for address. * C REACTIVE PROTEIN (CRP) (07/16/2018 12:35 PM FLOORING MECHANIC) C-Reactive Protein 0.25 <1.0 MG/DL [facility]IN [facility] Specimen Blood Performing Organization Address City/[facility]/Zipcode Phone Number [facility]IN [facility] [address] [place] [address] * SED RATE (07/16/2018 12:35 PM FLOORING MECHANIC) Sed Rate -ESR 5 0 - 30 MM/HR [facility] Specimen Blood Performing Organization Address [facility] Phone Number [facility] [address] [place] [address] * CBC AND DIFF (07/16/2018 12:35 PM FLOORING MECHANIC) White Blood Cells 8.6 4.5 - 11.0 [...] MAIN LAB Specimen Blood Performing Organization Address [facility] Phone Number MA[facility] LAB [address] [place] [address] * COMPREHENSIVE METABOLIC PANEL (07/16/2018 12:35 PM FLOORING MECHANIC) Sodium 137 137 - 147 MMOL/L [facility] Potassium 3.9 3.5 - 5.1 MMOL/L [facility] Chloride 105 98 - 110 [...] for questions. Specimen Blood Performing Organization Address City/[facility]/Zipcode Phone Number [facility] [address] [place] [address] in this encounter Visit Diagnoses Diagnosis Inflammatory arthritis Unspecified inflammatory polyarthropathy Inflammatory polyarthritis (HCC) Unspecified inflammatory polyarthropathy in this encounter
--- OUTSIDE RECORDS SUMMARY | 2018-08-06 13:12 | XMS REPORT | Encounter Summary ---
Author Author [facility] Organization [facility] Address Unknown Phone Unavailable Care Team Providers Care Commercial Credit Lead Name Role Phone Sweetie Bell MD PCP Morgan Mi OD Unavailable Reason for Visit * Reason Comments Inflammatory Arthritis Encounter Details Care Team Description Date Type Department Farideh Meade MD [address] [facility] [place] [address] Inflammatory polyarthritis (HCC) (Primary Dx); Discoid lupus; Raynaud's disease without gangrene; 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 Office Visit [facility] Rheumatology Rheumatology [address] [place] [address] Social History Date Tobacco Use Types Packs/Day Years Used Never Smoker Smokeless Tobacco: Never Used Alcohol Use Drinks/Week oz/Week Comments No Sex Assigned at Date Recorded Not on file Industry Job Start Date Occupation Not on file Not on file Not on file Travel End Travel History Travel Start No recent travel history available. as of this encounter Last Filed Vital Signs Time Taken Vital Sign Reading 07/16/2018 10:50 AM WIRE FENCE BUILDER Blood Pressure 116/63 07/16/2018 10:50 AM WIRE FENCE BUILDER Pulse 69 07/16/2018 10:50 AM WIRE FENCE BUILDER Temperature 36.4 C (97.5 F) 07/16/2018 10:50 AM WIRE FENCE BUILDER Respiratory Rate 16 07/16/2018 10:50 AM WIRE FENCE BUILDER Oxygen Saturation 100% - Inhaled Oxygen - Concentration 07/16/2018 10:50 AM WIRE FENCE BUILDER Weight 83.5 kg (184 lb) 07/16/2018 10:50 AM WIRE FENCE BUILDER Height 172.7 cm (5' 7.99") 07/16/2018 10:50 AM WIRE FENCE BUILDER Body Mass Index 27.99 in this encounter Functional Status Date of Assessment [...] cognitive impairment: No as of this encounter Patient Instructions * Patient Instructions* Farideh Meade MD - 07/16/2018 11:00 AM WIRE FENCE BUILDER - Trial of nifedpine for Raynaud's. - Rash - livedo reticularis - Clotting disease associated with lupus - antiphospholipid antibody syndrome. Testing done in August and was negative. - Start azathioprine if TPMT level is normal. This will replace methotrexate. - Continue hydroxychloroquine. - Prednisone burst. Go back down to 7.5 mg daily. Tapered off prednisone. Nifedipine capsules Brand Names: Adalat, Procardia What is this medicine? NIFEDIPINE (maricruz martinez) is a calcium-channel cori. It affects the amount of calcium found in your heart and muscle cells. This relaxes your blood vessels , which can reduce the amount of work the heart has to do. This medicine is used to treat chest pain caused by angina. How should I use this medicine? Take this medicine by mouth with a glass of water. Follow the directions on the prescription label. Swallow whole. Take your doses at regular intervals. Do not take your medicine more often then directed. Do not suddenly stop taking this medicine. Your doctor will tell you how much medicine to take. If your doctor wants you to stop the medicine, the dose will be slowly lowered over time to avoid any side effects. Talk to your buckle strap drum operator regarding the use of this medicine in children. Special care may be needed. What side effects may I notice from receiving this medicine? Side effects that you should report to your doctor or health long term care administrator as soon as possible: blood in the urine difficulty breathing fast heartbeat, palpitations, irregular heartbeat, chest pain redness, blistering, peeling or loosening of the skin, including inside the mouth reduced amount of urine passed skin rash swelling of the legs and ankles Side effects that usually do not require medical attention (report to your doctor or health long term care administrator if they continue or are bothersome): constipation facial flushing headache weakness or tiredness What may interact with this medicine? Do not take this medicine with any of the following medications: certain medicines for seizures like carbamazepine, phenobarbital, phenytoin lumacaftor; ivacaftor rifabutin rifampin rifapentine Bussey's Wort This medicine may also interact with the following medications: antiviral medicines for HIV or AIDS certain medicines for blood pressure certain medicines for diabetes certain medicines for erectile dysfunction certain medicines for fungal infections like ketoconazole, fluconazole, and itraconazole certain medicines for irregular heart beat like flecainide and quinidine certain medicines that treat or prevent blood clots like warfarin clarithromycin digoxin dolasetron erythromycin fluoxetine grapefruit juice local or general anesthetics nefazodone orlistat quinupristin; dalfopristin sirolimus stomach acid blockers like cimetidine, ranitidine, omeprazole, or pantoprazole tacrolimus valproic acid What if I miss a dose? If you miss a dose, take it as soon as you can. If it is almost time for your next dose, take only that dose. Do not take double or extra doses. Where should I keep my medicine? Keep out of the reach of children. Store at room temperature between 15 and 25 degrees C (59 and 77 degrees F). Protect from light and moisture. Keep container tightly closed. Throw away any unused medicine after the expiration date. What should I tell my health care provider before I take this medicine? They need to know if you have any of these conditions: heart problems, low blood pressure, slow or irregular heartbeat kidney disease liver disease previous heart attack an unusual or allergic reaction to nifedipine, other medicines, foods, dyes, or preservatives or trying to get breast-feeding What should I watch for while using this medicine? Visit your doctor or health long term care administrator for regular check ups. Check your blood pressure and pulse rate regularly. Ask your doctor or health long term care administrator what your blood pressure and pulse rate should be and when you should contact him or her. You may get drowsy or dizzy. Do not drive, use machinery, or do anything that needs mental alertness until you know how this medicine affects you. Do not stand or sit up quickly, especially if you are an older patient. This reduces the risk of dizzy or fainting spells. Alcohol may interfere with the effect of this medicine. Avoid alcoholic drinks. NOTE:This sheet is a summary. It may not cover all possible information. If you have questions about this medicine, talk to your doctor, pharmacist, or health care provider. Copyright 2018 [employer] Azathioprine tablets Brand Names: Azasan, Imuran What is this medicine? AZATHIOPRINE (ay za THYE oh preen) suppresses the immune system. It is used to prevent organ rejection after a transplant. It is also used to treat rheumatoid arthritis. How should I use this medicine? Take this medicine by mouth with a full glass of water. Follow the directions on the prescription label. Take your medicine at regular intervals. Do not take your medicine more often than directed. Continue to take your medicine even if you feel better. Do not stop taking except on your doctor's advice. Talk to your buckle strap drum operator regarding the use of this medicine in children. Special care may be needed. What side effects may I notice from receiving this medicine? Side effects that you should report to your doctor or health long term care administrator as soon as possible: allergic reactions like skin rash, itching or hives, swelling of the face, lips, or tongue changes in vision confusion fever, chills, or any other sign of infection loss of balance or coordination severe stomach pain unusual bleeding, bruising unusually weak or tired vomiting yellowing of the eyes or skin Side effects that usually do not require medical attention (report to your doctor or health long term care administrator if they continue or are bothersome): hair loss nausea What may interact with this medicine? Do not take this medicine with any of the following medications: febuxostat mercaptopurine This medicine may also interact with the following medications: allopurinol aminosalicylates like sulfasalazine, mesalamine, balsalazide, and olsalazine leflunomide medicines called TRICIA inhibitors like benazepril, captopril, enalapril, fosinopril, quinapril, lisinopril, ramipril, and trandolapril mycophenolate sulfamethoxazole; trimethoprim vaccines warfarin What if I miss a dose? If you miss a dose, take it as soon as you can. If it is almost time for your next dose, take only that dose. Do not take double or extra doses. Where should I keep my medicine? Keep out of the reach of children. Store at room temperature between 15 and 25 degrees C (59 and 77 degrees F). Protect from light. Throw away any unused medicine after the expiration date. What should I tell my health care provider before I take this medicine? They need to know if you have any of these conditions: infection kidney disease liver disease an unusual or allergic reaction to azathioprine, other medicines, lactose, foods, dyes, or preservatives or trying to get breast feeding What should I watch for while using this medicine? Visit your doctor or health long term care administrator for regular checks on your progress. You will need frequent blood checks during the first few months you are receiving the medicine. If you get a cold or other infection while receiving this medicine, call your doctor or health long term care administrator. Do not treat yourself. The medicine may increase your risk of getting an infection. Women should inform their doctor if they wish to become or think they might be . There is a potential for serious side effects to an unborn child. Talk to your health long term care administrator or pharmacist for more information. Men may have a reduced sperm count while they are taking this medicine. Talk to your health long term care administrator for more information. This medicine may increase your risk of getting certain kinds of cancer. Talk to your doctor about healthy lifestyle choices, important screenings, and your risk. NOTE:This sheet is a summary. It may not cover all possible information. If you have questions about this medicine, talk to your doctor, pharmacist, or health care provider. Copyright 2018 [employer] FENCE BUILDER in this encounter Progress Notes * Farideh Meade MD - 07/16/2018 11:00 AM WIRE FENCE BUILDER Subjective: History of Present Illness Danyelle Vásquez is a 53 y.o. female. Ms. Vásquez presents to [facility] care for inflammatory arthritis in the setting of prior history of discoid lupus. She previously followed with Dr. Pyle. She is accompanied by her to today's visit. She dates her symptoms to approximately 2012 when she was diagnosed with microscopic colitis. Two years following the microscopic colitis diagnosis, she was diagnosed with lichen sclerosis. In 2015, she was then subsequently diagnosed with lichen planus based on findings of oral ulcers. However, there has been question over time if lichen planus is the best diagnosis as the oral ulcers responded significantly to hydroxychloroquine. In 02/2017 approximately, she was diagnosed with discoid lupus based on biopsy of the scalp in the setting of patchy hair loss. Hydroxychloroquine was initiated at that time. She follows with Dr. Santos at [facility]. In terms of evaluation for systemic disease, she has had a persistently low C3. NOE and AJITH have both been negative. She reports Raynaud's phenomenon for over 10 years. She denies history of digital ulcers. She has never been on any specific therapy from the standpoint of Raynaud's. She reports one episode of photosensitivity but thinks that was the consequence of being on corticosteroids at the time. She does have a diagnosis of rosacea. She has no history of deep venous thromboembolism or loss; antiphospholipid antibodies have been negative. She developed inflammatory arthritis over her course. Initially she was started on hydroxychloroquine in the setting of discoid lupus followed by oral methotrexate started in 09/2017. However, it was felt that there was persistent disease activity despite oral methotrexate and in 02/2018, she was switched to subcutaneous methotrexate. She reports that initially the subcutaneous methotrexate helped. However in the last 6-8 weeks, she has experienced both worsening joint pain as well as significant difficulty with gastrointestinal side effects. X-rays have not identified erosions. Serology has included negative RF and CCP. She reports that last week she traveled to [place] but had a very difficult time moving around during her vacation. She is also been experiencing bilateral posterior buttock pain which is been problematic over the last 2 years making it difficult to walk and do stairs. This correlates with joint symptoms and has responded to systemic therapy similarly to the peripheral joint symptoms. She has a long-standing history of fibromyalgia which predated the microscopic colitis diagnosis. She reports that she had this diagnosis in the setting of very high levels of stress. As her stress level decreased, she found improvement in those specific symptoms. She has difficulty with neck and back pain. In 2010, she underwent cervical spine surgery at levels C4-5 and C5-6. In 09/2016, she underwent a microdiscectomy and hemilaminectomy at L4-5. She reports intermittent issues with low back pain subsequently. She has had recurrence of the "lightening bolt " pain. She was evaluated by a pain management clinic in [place], [place]. After injections and ablation procedures, she reports that they recommended that she follow-up with her surgeon. However at this point, she is not interested in pursuing additional surgery. She has a history of multiple surgeries in the setting of the ACL reconstruction of the right knee. She has a history of osteoarthritis affecting that knee. She follows with Dr. He regarding hypogammaglobulinemia. Currently, observation is planned. She is not currently on prophylactic antibiotics or IVIG. However this past winter, she has had difficulty with nasal and chest congestion for approximately 3 months. Laboratory History: Negative NOE, AJITH. Reduced C3 in 08/2017 and 02/2018. Current Rheumatologic Medications: Methotrexate 25 mg subcutaneous, hydroxychloroquine 400 mg daily, prednisone 7.5 mg daily, tramadol 100 mg TID, tizanidine 2 mg qhs prn. In terms of prednisone, she reports that in the past it has required very high doses of prednisone to control her symptoms. She typically would start on prednisone up to 60 mg with reduction every 4 days. She was more recently started on baseline maintenance prednisone at 7.5 mg daily. She reports that she is unclear how much this is helping her. She typically takes 1 hydrocodone per day. She typically takes 2 tabs of tramadol 3 times daily but she is unsure that this helps her much. She takes tizanidine at night which significantly helps her with sleep. Review of Systems Constitutional: Positive for chills. HENT: Positive for congestion, nosebleeds and tinnitus. Respiratory: Positive for cough. Gastrointestinal: Positive for diarrhea. Musculoskeletal: Positive for arthralgias, back pain, gait problem and joint swelling. Skin: Positive for rash. Neurological: Positive for headaches. Hematological: Bruises/bleeds easily. Psychiatric/Behavioral: Positive for decreased concentration, dysphoric mood and sleep disturbance. All other systems reviewed and are negative. Past Medical History: Diagnosis Date Bad headache Colitis Heart murmur High cholesterol HPV (human papilloma virus) infection Lichen planus Lichen sclerosus Osteoarthritis Pneumonia Past Surgical History: Procedure Laterality Date CERVICAL SPINE SURGERY CHOLECYSTECTOMY HYSTERECTOMY KNEE SURGERY Family History Problem Relation Age of Onset Hyperlipidemia Mother Hypertension Father Arthritis-rheumatoid Father Diabetes Type II Father Hyperlipidemia Father Heart Attack Father Heart Disease Father Asthma Sister Asthma Son Heart Disease Maternal Grandmother Heart Disease Maternal Grandfather Diabetes Type II Paternal Grandmother Heart Disease Paternal Grandfather Melanoma Neg Hx Family history includes father, 2 sisters, and maternal grandfather with rheumatoid arthritis, paternal aunt with lupus, and 3 first cousins with lupus. 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 cholecalciferol (VITAMIN D-3) 1,000 units tablet Take 2,000 Units by mouth daily. citalopram (CELEXA) 20 mg tablet Take 40 mg by mouth daily. clobetasol (TEMOVATE) 0.05 % topical solution Apply once daily to affected areas on scalp for up to 2 weeks at a time then break for 2 weeks - Do not use on the face, groin, underarms desonide(+) (TRIDESILON; DESOWEN; DELONIDE) 0.05 % topical cream Apply topically to affected area daily as needed. estradiol (ESTRACE) 2 mg tablet Take 1 mg by mouth daily. FEXOFENADINE/PSEUDOEPHEDRINE (MARYBEL-D 24 HOUR PO) Take by mouth. fluocinonide (LIDEX) 0.05 % topical ointment Apply topically to affected area twice daily. fluticasone (FLONASE) 50 mcg/actuation nasal spray Apply 2 sprays to each nostril as directed daily as needed. Shake bottle gently before using. folic acid (FOLVITE) 1 mg tablet Take one tablet by mouth daily. gabapentin 300 mg Tb24 Take by mouth. HYDROcodone/acetaminophen (NORCO) 5/325 mg tablet Take 1 tablet by mouth every 4 hours as needed for Pain hydroxychloroquine (PLAQUENIL) 200 mg tablet Take one tablet by mouth twice daily. Take with food. Insulin Syringe-Needle U-100 (BD INSULIN SYRINGE) 1 mL 25 gauge x 5/8" syrg Use to administer Methotrexate weekly injections LISINOPRIL PO Take 10 mg by mouth daily. Magnesium 250 mg tab Take by mouth. methotrexate PF 25 mg/mL injection Inject 0.8 mL under the skin every 7 days. prednisone (DELTASONE) 10 mg tablet 60 mg x 4 days, 50 mg x 4 days, 40 mg x 4 days, 30 mg x 4 days, 20 mg x 4 days, 10 mg x 4 days, then return to baseline 7.5 prednisone (DELTASONE) 5 mg tablet Take 1.5 tablets by mouth daily with breakfast. SUMAtriptan (IMITREX) 6 mg/0.5 mL injection Inject 6 mg under the skin once. tiZANidine (ZANAFLEX) 2 mg tablet Take one tablet by mouth at bedtime as needed. topiramate (TROKENDI XR) 200 mg cp24 Take by mouth. traMADol (ULTRAM) 50 mg tablet Take two tablets by mouth every 8 hours as needed for Pain. Vitals: 07/16/18 1050 BP: 116/63 Pulse: 69 Resp: 16 Temp: 36.4 C (97.5 F) TempSrc: Oral SpO2: 100% Weight: 83.5 kg (184 lb) Height: 172.7 cm (67.99") Body mass index is 27.99 kg/m. Physical Exam General: Alert and oriented, no acute distress. Eye: Clear conjunctiva and lids. HEENT: Moist mucous membranes with no oral or nasal ulcers. Lymph: No cervical or supraclavicular lymphadenopathy. CV: Regular rate and rhythm; no murmur/gallop/rub. Vessels: Normal radial pulses. Pulm: Clear to auscultation bilaterally. Abdomen: Soft, nontender, nondistended. Skin: Livedo reticularis most noticeable on arms. No malar rash, heliotrope rash, Gottron's papules, sclerodactyly, telangiectasias, or psoriatic plaques. Normal nailfold capillaries. MSK: No tenderness or swelling of the sternoclavicular joints, acromioclavicular joints, shoulders, elbows, wrists. Right MCP 15 tender. Right PIP 3 with equivocal swelling. Left MCPs with much milder tenderness compared to right. Left PIP 2 swollen. Knees without tenderness or swelling. Ankles without tenderness or swelling. MTP compression test negative. Assessment and Plan: #1 Inflammatory arthritis #2 Discoid lupus #3 Oral ulcers initially thought to represent lichen planus but responsive to hydroxychloroquine #4 Hypogammaglobulinemia with history of recurrent sinus infections #5 Mechanical back pain with prior history of cervical and lumbar surgery #6 Osteoarthritis #7 Prior diagnosis of fibromyalgia She previously had been experiencing improvement with methotrexate. However, now, she is having more difficulty with side effects as well as limited symptomatic improvement. She has evidence of multifactorial contributors to pain. She has mechanical back pain, osteoarthritis, and fibromyalgia. Evidence of swelling of a couple PIPs in addition to tenderness particularly of the MCPs on the right. The synovitis may in part be obscured due to methotrexate and hydroxychloroquine. We discussed a trial of azathioprine if her baseline TPMT is normal. We discussed side effects of cytopenias, hepatotoxicity, abdominal symptoms and need for laboratory monitoring. This will be to place of methotrexate. We will plan to continue hydroxychloroquine. She describes significant buttock pain. This in the past has trended with her peripheral joint symptoms and has responded well to corticosteroids. We will plan for burst of prednisone. Which she has done in the past which she is found to be more helpful. We discussed that this is a higher dose that typically is utilized for inflammatory arthritis. We will plan for 60 mg x4, 50 mg x4, 40 mg x4, 30 mg x4, 20 mg x4, 10 mg for and then back to her baseline 7.5 mg. We had a discussion regarding the goal of tapering her off the maintenance prednisone as she is unclear that this has resulted in much improvement. #8 Raynaud's phenomenon #9 Livedo reticularis We discussed Raynaud's phenomenon; currently, this appears consistent with primary. Nailfold capillaries are normal. We discussed a trial of nifedipine. We will plan to utilize low-dose as her normal blood pressure runs low normal. We discussed potential hypotension. She has findings of livedo reticularis on exam. She has not had any prior history of ulceration of the skin. Prior antiphospholipid antibody testing has been negative. Recommendations: 1. Update lab work as described above. 2. Discontinue methotrexate due to worsening joint pain and gastrointestinal intolerance. 3. If TPMT is normal, then start azathioprine. 4. Continue hydroxychloroquine 400 mg daily. Will need annual eye examination. 5. Prednisone burst as described above. With intermediate goal of tapering off the roasterman prednisone 7.5 mg daily. 6. Trial of nifedipine 30 mg daily for Raynaud's. Billin minutes, greater than 50% spent in counseling and coordination of care. FENCE BUILDER in this encounter Plan of Treatment Not on fileas of this encounter Results * SED RATE (07/16/2018 12:35 PM WIRE FENCE BUILDER) Sed Rate -ESR 5 0 - 30 MM/HR MAIN LAB Specimen Blood Performing Organization Address [facility] Phone Number MAIN LAB [address] [place] [address] * C REACTIVE PROTEIN (CRP) (07/16/2018 12:35 PM WIRE FENCE BUILDER) C-Reactive Protein 0.25 <1.0 MG/DL MAIN LAB Specimen Blood Performing Organization Address [facility] Phone Number MAIN LAB [address] [phone] * THIOPURINE METHYLTRANSFERASE RBC (07/16/2018 12:35 PM WIRE FENCE BUILDER) Thiopurine S-Methyl 23.9 (L) REFERENCE LAB (TPMT) [...] hemolysis. Test developed and characteristics determined by [facility]. See Compliance Statement B: [email or web address] Performed by [facility], [address], [facility] [address] [email or web address], Michael Del Valle MD, Lab. Director Specimen Blood Performing Organization Address [facility] Phone Number REFERENCE LAB REFERENCE LAB See results for address. * ANTI-DNA DOUBLE STRAND (07/16/2018 12:35 PM WIRE FENCE BUILDER) DNA Double Strand AB <10 <10 TITER KU MAIN LAB Specimen Blood Performing Organization Address [facility] Phone Number [facility] [address] [place] [address] * ANTI-NUCLEAR ANTIBODY(NOE) (07/16/2018 12:35 PM [employer]) NOE Screen <80 <80 [facility] Specimen Blood Performing Organization Address [facility] Phone Number [facility] [address] [place] [address] in this encounter Visit Diagnoses Diagnosis Inflammatory polyarthritis (HCC) - Primary Unspecified inflammatory polyarthropathy Discoid lupus Lupus erythematosus Raynaud's disease without gangrene Livedo reticularis Pallor in this encounter
--- OUTSIDE RECORDS SUMMARY | 2018-08-06 13:12 | XMS REPORT | Encounter Summary ---
Author Author [facility] Organization [facility] Address Unknown Phone Unavailable Care Team Providers Care Bale Sewer Name Role Phone Sweetie Bell MD PCP [facility] OD Unavailable Reason for Visit * Reason Comments Medication Refill Encounter Details Care Team Description Date Type Department Farideh Meade MD [id number] [place], [place] [id number] 06/25/2018 Refill [facility] [address] [id number] [address] [place], [place] [id number] Social History Date Tobacco Use Types Packs/Day [...] Telephone Encounter - Kristan Greco RN - 06/26/2018 12:21 PM [employer] Called in tramadol script to [facility]. [employer] * Telephone Encounter - Samra Goldstein RN - 06/25/2018 11:20 AM [employer] May I have refills on: Folic acid 1mg, tizanidine 2mg and tramadol 50mg please? Thank you," BRENNA 03/05/18 POC Next appt 07/16/18 Last labs 06/21/18 [employer] in this encounter Plan of Treatment Not on fileas of this encounter Visit Diagnoses Not on filein this encounter
--- OUTSIDE RECORDS SUMMARY | 2018-08-06 13:15 | XMS REPORT | Continuity of Care Document ---
Author Author [facility] Organization [facility] Address Unknown Phone Unavailable Allergies Active Description Code Type Severity Reaction Onset Reported/Identified Relationship to Patient Clinical Status Yes Cefadroxil Hydrate [id number] Drug Allergy Unknown N/A 11/04/2013 Yes iodine [id number] Drug Allergy Unknown N/A 11/04/2013 Yes morphine [id number] Drug Allergy Unknown N/A 11/04/2013 Yes Penicillins [id number] Drug Allergy Unknown N/A 11/04/2013 Yes sulfamethoxazole [id number] Drug Allergy Unknown N/A 11/04/2013 Yes trimethoprim [id number] Drug Allergy Unknown N/A 11/04/2013 Yes meloxicam [id number] Drug Allergy Unknown HIVES 03/25/2014 Medications There is no data. Problems Date Dx Coded Attending Type Code Diagnosis Diagnosed By 06/10/2012 Ot 789.06 ABDOMINAL PAIN, EPIGASTRIC 11/04/2012 SURY ESPINAL Ot 682.7 CELLULITIS OF FOOT 11/04/2012 SURY ESPINAL Ot 892.1 OPEN WOUND FOOT-COMPL 11/04/2012 SURY ESPINAL Ot E000.8 OTHER EXTERNAL CAUSE STATUS 11/04/2012 SURY ESPINAL Ot E849.0 ACCIDENT IN HOME 11/04/2012 SURY ESPINAL Ot E920.8 ACC-CUTTING INSTRUM NEC 02/23/2013 FRANSISCA NAIDU MD Ot 272.4 HYPERLIPIDEMIA NEC/NOS 02/23/2013 FRANSISCA NAIDU MD Ot 311 DEPRESSIVE DISORDER NEC 02/23/2013 FRANSISCA NAIDU MD Ot 553.3 DIAPHRAGMATIC HERNIA 02/23/2013 FRANSISCA NAIDU MD Ot 716.90 ARTHROPATHY NOS-UNSPEC 02/23/2013 FRANSISCA NAIDU MD Ot 786.59 CHEST PAIN NEC 02/23/2013 FRANSISCA NAIDU MD Ot 789.06 ABDOMINAL PAIN, EPIGASTRIC 02/23/2013 FRANSISCA NAIDU MD Ot V03.82 PROPHYLACTIC VACC AGAINST STREPTOCOCCUS 02/23/2013 FRANSISCA NAIDU MD Ot V04.81 ND FOR PROPHYLACTIC VACCIN AND INOCULATI 02/23/2013 FRANSISCA NAIDU MD Ot V17.3 FAM HX-ISCHEM HEART DIS 11/05/2013 ISAIAH ZAFAR MD Ot 272.4 HYPERLIPIDEMIA NEC/NOS 11/05/2013 ISAIAH ZAFAR MD Ot 300.00 ANXIETY STATE NOS 11/05/2013 ISAIAH ZAFAR MD Ot 401.9 HYPERTENSION NOS 11/05/2013 ISAIAH ZAFAR MD Ot 714.0 RHEUMATOID ARTHRITIS 11/05/2013 ISAIAH ZAFAR MD Ot 782.0 SKIN SENSATION DISTURB 11/05/2013 ISAIAH ZAFAR MD Ot 786.59 CHEST PAIN NEC 11/05/2013 ISAIAH ZAFAR MD Ot V58.69 OTH MED,LT,CURRENT USE 12/25/2013 FRANSISCA NAIDU MD Ot 346.90 MIGRAINE UNSPECIFIED W/O INTRACT MGRN W/ 12/25/2013 FRANSISCA NAIDU MD Ot 401.9 HYPERTENSION NOS 12/25/2013 FRANSISCA NAIDU MD Ot 745.5 SECUNDUM ATRIAL SEPT DEF 12/25/2013 FRANSISCA NAIDU MD Ot 780.79 OTH MALAISE FATIGUE 12/25/2013 FRANSISCA NAIDU MD Ot 782.0 SKIN SENSATION DISTURB 12/25/2013 FRANSISCA NAIDU MD Ot 786.50 CHEST PAIN NOS 12/25/2013 FRANSISCA NAIDU MD Ot V58.69 OTH MED,LT,CURRENT USE 01/17/2014 GRISELDA YODER APRN Ot 327.51 PERIODIC LIMB MOVEMENT DISORDER 01/17/2014 GRISELDA YODER APRN Ot 786.09 RESPIRATORY ABNORM NEC 04/03/2014 DANNIE ZHONG MD Ot 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 04/03/2014 DANNIE ZHONG MD Ot 478.0 HYPERTRPH NASAL TURBINAT 04/10/2014 DANNIE ZHONG MD Ot 470 04/10/2014 DANNIE ZHONG MD Ot 478.0 04/10/2014 DANNIE ZHONG MD Ot V72.63 04/10/2014 DANNIE ZHONG MD Ot V74.8 05/30/2014 Ot 214.1 05/30/2014 Ot 722.4 05/30/2014 Ot 722.51 05/30/2014 Ot V76.12 05/30/2014 Ot 786.2 05/30/2014 Ot 786.50 05/30/2014 Ot V76.12 05/30/2014 Ot 789.01 05/30/2014 Ot V45.89 05/30/2014 ANDRADE MILLER, ISAIAH Baker Ot 786.50 05/30/2014 FRANSISCA NAIDU MD Ot 786.50 05/30/2014 FRANSISCA NAIDU MD Ot 272.4 05/30/2014 FRANSISCA NAIDU MD Ot 397.0 05/30/2014 FRANSISCA NAIDU MD Ot 401.9 05/30/2014 FRANSISCA NAIDU MD Ot 424.0 05/30/2014 FRANSISCA NAIDU MD Ot 786.50 05/30/2014 FARHEEN MILLER, DANNIE Cuello Ot 784.0 05/30/2014 FARHEEN MILLER, DANNIE Cuello Ot 470 05/30/2014 FARHEEN MILLER, DANNIE P Ot 478.0 05/30/2014 FARHEEN MILLER, DANNIE Cuello Ot V72.63 05/30/2014 FARHEEN MILLER, DANNIE P Ot V74.8 07/02/2014 ANDRADE MILLER, ISAIAH Baker Ot 722.10 02/25/2015 FRANSISCA NAIDU MD Ot 272.4 02/25/2015 FRANSISCA NAIDU MD Ot 401.9 02/25/2015 FRANSISCA NAIDU MD Ot 785.1 02/25/2015 FRANSISCA NAIDU MD Ot 786.59 08/26/2015 Ot M79.672 09/11/2015 DANNIE ROSENBERG MD Ot M19.072 PRIMARY OSTEOARTHRITIS, LEFT ANKLE AND F 09/11/2015 DANNIE ROSENBERG MD Ot S92.345A NONDISP FX OF FOURTH METATARSAL BONE, LE 09/11/2015 DANNIE ROSENBERG MD Ot X58.XXXA EXPOSURE TO OTHER SPECIFIED FACTORS, INI 09/11/2015 DANNIE ROSENBERG MD Ot Y92.[address] IN UNSP NON-INSTITUT (PRIVATE 09/11/2015 DANNIE ROSENBERG MD Ot Y93.9 ACTIVITY, UNSPECIFIED 09/17/2015 Ot M79.672 PAIN IN LEFT FOOT 09/22/2015 SAMMY CAROLINA MD Ot S01.511A LACERATION WITHOUT FOREIGN BODY OF LIP, 09/22/2015 SAMMY CAROLINA MD Ot S03.2XXA DISLOCATION OF TOOTH, INITIAL ENCOUNTER 09/22/2015 SAMMY CAROLINA MD Ot W22.8XXA STRIKING AGAINST OR STRUCK BY OTHER OBJE 09/22/2015 SAMMY CAROLINA MD Ot Y92.017 GARDEN OR YARD IN SINGLE-FAMILY (PRIVATE 09/22/2015 SAMMY CAROLINA MD Ot Y93.H2 ACTIVITY, GARDENING AND LANDSCAPING 09/22/2015 SAMMY CAROLINA MD Ot Y99.8 OTHER EXTERNAL CAUSE STATUS 09/30/2015 DANNIE ROSENBERG MD, Ot M19.072 PRIMARY OSTEOARTHRITIS, LEFT ANKLE AND F 09/30/2015 DANNIE ROSENBERG MD, Ot S92.345A NONDISP FX OF FOURTH METATARSAL BONE, LE 09/30/2015 DANNIE ROSENBERG MD Ot X58.XXXA EXPOSURE TO OTHER SPECIFIED FACTORS, INI 09/30/2015 DANNIE ROSENBERG MD Ot Y92.[address] [facility] (PR[facility] 09/30/2015 DANNIE ROSENBERG MD, Ot Y93.9 ACTIVITY, UNSPECIFIED 05/12/2016 Ot 722.4 CERVICAL DISC DEGEN 05/12/2016 Ot 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 05/12/2016 Ot V76.12 OTH SCREEN MAMMO-MALIGN NEOPLASM OF HARI 05/12/2016 Ot 786.2 COUGH 05/12/2016 Ot 786.50 CHEST PAIN NOS 05/12/2016 Ot V76.12 OTH SCREEN MAMMO-MALIGN NEOPLASM OF HARI 05/12/2016 Ot 789.01 ABDOMINAL PAIN, RIGHT UPPER QUADRANT 05/12/2016 Ot V45.89 POSTSURGICAL STATES NEC 05/12/2016 ISAIAH ZAFAR MD Ot 786.50 CHEST PAIN NOS 05/12/2016 FRANSISCA NAIDU MD Ot 786.50 CHEST PAIN NOS 05/12/2016 FRANSISCA NAIDU MD Ot 272.4 HYPERLIPIDEMIA NEC/NOS 05/12/2016 FRANSISCA NAIDU MD Ot 397.0 TRICUSPID VALVE DISEASE 05/12/2016 FRANSISCA NAIDU MD Ot 401.9 HYPERTENSION NOS 05/12/2016 FRANSISCA NAIDU MD Ot 424.0 MITRAL VALVE DISORDER 05/12/2016 FRANSISCA NAIDU MD Ot 786.50 CHEST PAIN NOS 05/12/2016 DANNIE ZHONG MD Ot 784.0 HEADACHE 05/12/2016 DANNIE ZHONG MD Ot 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 05/12/2016 DANNIE ZHONG MD Ot 478.0 HYPERTRPH NASAL TURBINAT 05/12/2016 DANNIE ZHONG MD Ot V72.63 PRE-PROCEDURAL LABORATORY EXAMINATION 05/12/2016 DANNIE ZHONG MD Ot V74.8 SCREEN-BACTERIAL DIS NEC 05/12/2016 ISAIAH ZAFAR MD Ot 722.10 LUMBAR DISC DISPLACEMENT 05/12/2016 FRANSISCA NAIDU MD Ot 272.4 HYPERLIPIDEMIA NEC/NOS 05/12/2016 FRANSISCA NAIDU MD Ot 401.9 HYPERTENSION NOS 05/12/2016 FRANSISCA NAIDU MD Ot 785.1 PALPITATIONS 05/12/2016 FRANSISCA NAIDU MD Ot 786.59 CHEST PAIN NEC 05/12/2016 Ot M79.672 PAIN IN LEFT FOOT 05/12/2016 DANNIE ROSENBERG MD Ot M19.072 PRIMARY OSTEOARTHRITIS, LEFT ANKLE AND F 05/12/2016 DANNIE ROSENBERG MD Ot S92.345A NONDISP FX OF FOURTH METATARSAL BONE, LE 05/12/2016 DANNIE ROSENBERG MD, Ot X58.XXXA EXPOSURE TO OTHER SPECIFIED FACTORS, INI 05/12/2016 DANNIE ROSENBERG MD Ot Y92.[address] IN [facility] NON-INSTITUT (PRIVATE 05/12/2016 DANNIE ROSENBERG MD Ot Y93.9 ACTIVITY, UNSPECIFIED 05/13/2016 FRANSISCA NAIDU MD Ot E78.2 MIXED HYPERLIPIDEMIA 05/13/2016 FRANSISCA NAIDU MD Ot I10 ESSENTIAL (PRIMARY) HYPERTENSION 05/13/2016 FRANSISCA NAIDU MD Ot 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 05/13/2016 FRANSISCA NAIDU MD Ot R00.2 PALPITATIONS 05/13/2016 FRANSISCA NAIDU MD Ot R07.9 CHEST PAIN, UNSPECIFIED 07/11/2016 Ot V76.12 OTH SCREEN MAMMO-MALIGN NEOPLASM OF HARI 07/11/2016 Ot 786.2 COUGH 07/11/2016 Ot 786.50 CHEST PAIN NOS 07/11/2016 Ot V76.12 OTH SCREEN MAMMO-MALIGN NEOPLASM OF HARI 07/11/2016 Ot 789.01 ABDOMINAL PAIN, RIGHT UPPER QUADRANT 07/11/2016 Ot V45.89 POSTSURGICAL STATES NEC 07/11/2016 ISAIAH ZAFAR MD Ot 786.50 CHEST PAIN NOS 07/11/2016 FRANSISCA NAIDU MD Ot 786.50 CHEST PAIN NOS 07/11/2016 FRANSISCA NAIDU MD Ot 272.4 HYPERLIPIDEMIA NEC/NOS 07/11/2016 FRANSISCA NAIDU MD Ot 397.0 TRICUSPID VALVE DISEASE 07/11/2016 FRANSISCA NAIDU MD Ot 401.9 HYPERTENSION NOS 07/11/2016 FRANSISCA NAIDU MD Ot 424.0 MITRAL VALVE DISORDER 07/11/2016 FRANSISCA NAIDU MD Ot 786.50 CHEST PAIN NOS 07/11/2016 DANNIE ZHONG MD Ot 784.0 HEADACHE 07/11/2016 DANNIE ZHONG MD Ot 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 07/11/2016 DANNIE ZHONG MD Ot 478.0 HYPERTRPH NASAL TURBINAT 07/11/2016 DANNIE ZHONG MD Ot V72.63 PRE-PROCEDURAL LABORATORY EXAMINATION 07/11/2016 DANNIE ZHONG MD Ot V74.8 SCREEN-BACTERIAL DIS NEC 07/11/2016 ISAIAH ZAFAR MD Ot 722.10 LUMBAR DISC DISPLACEMENT 07/11/2016 FRANSISCA NAIDU MD Ot 272.4 HYPERLIPIDEMIA NEC/NOS 07/11/2016 FRANSISCA NAIDU MD Ot 401.9 HYPERTENSION NOS 07/11/2016 FRANSISCA NAIDU MD Ot 785.1 PALPITATIONS 07/11/2016 FRANSISCA NAIDU MD Ot 786.59 CHEST PAIN NEC 07/11/2016 Ot M79.672 PAIN IN LEFT FOOT 07/11/2016 DANNIE ROSENBERG MD Ot M19.072 PRIMARY OSTEOARTHRITIS, LEFT ANKLE AND F 07/11/2016 DANNIE ROSENBERG MD Ot S92.345A NONDISP FX OF FOURTH METATARSAL BONE, LE 07/11/2016 DANNIE ROSENBERG MD Ot X58.XXXA EXPOSURE TO OTHER SPECIFIED FACTORS, INI 07/11/2016 DANNIE ROSENBERG MD Ot Y92.[address] IN [facility] NON[facility] 07/11/2016 SHAKIRA MILLER, DANNIE Cuello Ot Y93.9 ACTIVITY, UNSPECIFIED 07/11/2016 FRANSISCA NAIDU MD Ot E78.2 MIXED HYPERLIPIDEMIA 07/11/2016 FRANSISCA NAIDU MD Ot I10 ESSENTIAL (PRIMARY) HYPERTENSION 07/11/2016 FRANSISCA NAIDU MD Ot 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 07/11/2016 FRANSISCA NAIDU MD Ot R00.2 PALPITATIONS 07/11/2016 FRANSISCA NAIDU MD Ot R07.9 CHEST PAIN, UNSPECIFIED 07/12/2016 MAMADOU BELL DO S Ot M51.26 OTHER INTERVERTEBRAL DISC DISPLACEMENT, 07/12/2016 MAMADOU BELL DO S Ot M51.26 OTHER INTERVERTEBRAL DISC DISPLACEMENT, 07/14/2016 FRANSISCA NAIDU MD Ot E78.2 MIXED HYPERLIPIDEMIA 07/14/2016 FRANSISCA NAIDU MD Ot I10 ESSENTIAL (PRIMARY) HYPERTENSION 07/14/2016 FRANSISCA NAIDU MD Ot 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 07/14/2016 FRANSISCA NAIDU MD Ot R00.2 PALPITATIONS 07/14/2016 FRANSISCA NAIDU MD Ot R07.9 CHEST PAIN, UNSPECIFIED 07/21/2016 MAMADOU BELL DO S Ot M51.26 OTHER INTERVERTEBRAL DISC DISPLACEMENT, 07/22/2016 MELIA TEJEDA MD Ot M47.816 SPONDYLOSIS W/O MYELOPATHY OR RADICULOPA 07/22/2016 MELIA TEJEDA MD, Ot 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 RADICULO 07/22/2016 MELIA TEJEDA MD Ot Z79.899 OTHER RESIDENTIAL (CURRENT) DRUG THERAPY 08/09/2016 MELIA TEJEDA MD Ot M47.816 SPONDYLOSIS W/O MYELOPATHY OR RADICULOPA 08/09/2016 MELIA TEJEDA MD, Ot 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 RADICULO 08/09/2016 MELIA TEJEDA MD Ot 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.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89 POSTSURGICAL STATES NEC 01/25/2017 ISAIAH ZAFAR MD Ot 786.50 CHEST PAIN NOS 01/25/2017 FRANSISCA NAIDU MD Ot 786.50 CHEST PAIN NOS 01/25/2017 FRANSISCA NAIDU MD Ot 272.4 HYPERLIPIDEMIA NEC/NOS 01/25/2017 FRANSISCA NAIDU MD Ot 397.0 TRICUSPID VALVE DISEASE 01/25/2017 FRANSISCA NAIDU MD Ot 401.9 HYPERTENSION NOS 01/25/2017 FRANSISCA NAIDU MD Ot 424.0 MITRAL VALVE DISORDER 01/25/2017 FRANSISCA NAIDU MD Ot 786.50 CHEST PAIN NOS 01/25/2017 DANNIE ZHONG MD Ot 784.0 HEADACHE 01/25/2017 DANNIE ZHONG MD Ot 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 01/25/2017 DANNIE ZHONG MD Ot 478.0 HYPERTRPH NASAL TURBINAT 01/25/2017 DANNIE ZHONG MD Ot V72.63 PRE-PROCEDURAL LABORATORY EXAMINATION 01/25/2017 DANNIE ZHONG MD Ot V74.8 SCREEN-BACTERIAL DIS NEC 01/25/2017 ISAIAH ZAFAR MD Ot 722.10 LUMBAR DISC DISPLACEMENT 01/25/2017 FRANSISCA NAIDU MD Ot 272.4 HYPERLIPIDEMIA NEC/NOS 01/25/2017 FRANSISCA NAIDU MD Ot 401.9 HYPERTENSION NOS 01/25/2017 FRANSISCA NAIDU MD Ot 785.1 PALPITATIONS 01/25/2017 FRANSISCA NAIDU MD Ot 786.59 CHEST PAIN NEC 01/25/2017 Ot M79.672 PAIN IN LEFT FOOT 01/25/2017 DANNIE ROSENBERG MD Ot M19.072 PRIMARY OSTEOARTHRITIS, LEFT ANKLE AND F 01/25/2017 DANNIE ROSENBERG MD Ot S92.345A NONDISP FX OF FOURTH METATARSAL BONE, LE 01/25/2017 DANNIE ROSENBERG MD, Ot X58.XXXA EXPOSURE TO OTHER SPECIFIED FACTORS, INI 01/25/2017 DANNIE ROSENBERG MD Ot Y92.[address] IN [facility] NON-INSTITUT (PRIVATE 01/25/2017 DANNIE ROSENBERG MD, Ot Y93.9 ACTIVITY, UNSPECIFIED 01/25/2017 FRANSISCA NAIDU MD Ot E78.2 MIXED HYPERLIPIDEMIA 01/25/2017 FRANSISCA NAIDU MD Ot I10 ESSENTIAL (PRIMARY) HYPERTENSION 01/25/2017 FRANSISCA NAIDU MD Ot 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 01/25/2017 FRANSISCA NAIDU MD Ot R00.2 PALPITATIONS 01/25/2017 FRANSISCA NAIDU MD Ot R07.9 CHEST PAIN, UNSPECIFIED 01/25/2017 MAMADOU BELL DO Ot M51.26 OTHER INTERVERTEBRAL DISC DISPLACEMENT, 01/26/2017 DANNIE MCCRAY DO, Ot M47.817 SPONDYLS W/O MYELOPATHY OR RADICULOPATHY 01/26/2017 DANNIE MCCRAY DO Ot M51.37 OTHER INTERVERTEBRAL DISC DEGENERATION, 01/26/2017 DANNIE MCCRAY DO Ot M54.16 RADICULOPATHY, LUMBAR REGION 02/03/2017 DANNIE MCCRAY DO Ot M47.817 SPONDYLS W/O MYELOPATHY OR RADICULOPATHY 02/03/2017 DANNIE MCCRAY DO Ot M51.37 OTHER INTERVERTEBRAL DISC DEGENERATION, 02/03/2017 DANNIE MCCRAY DO Ot M54.16 RADICULOPATHY, LUMBAR REGION 02/05/2017 DANNIE MCCRAY DO Ot M47.817 SPONDYLS W/O MYELOPATHY OR RADICULOPATHY 02/05/2017 DANNIE MCCRAY DO Ot M51.37 OTHER INTERVERTEBRAL DISC DEGENERATION, 02/05/2017 DANNIE MCCRAY DO, Ot M54.16 RADICULOPATHY, LUMBAR REGION 09/12/2017 Ot V76.12 OTH SCREEN MAMMO-MALIGN NEOPLASM OF HARI 09/12/2017 Ot 789.01 ABDOMINAL PAIN, RIGHT UPPER QUADRANT 09/12/2017 Ot V45.89 POSTSURGICAL STATES NEC 09/12/2017 ANDRADE MILLER, ISAIAH Baker Ot 786.50 CHEST PAIN NOS 09/12/2017 FRANSISCA NAIDU MD Ot 786.50 CHEST PAIN NOS 09/12/2017 FRANSISCA NAIDU MD Ot 272.4 HYPERLIPIDEMIA NEC/NOS 09/12/2017 FRANSISCA NAIDU MD Ot 397.0 TRICUSPID VALVE DISEASE 09/12/2017 FRANSISCA NAIDU MD Ot 401.9 HYPERTENSION NOS 09/12/2017 FRANSISCA NAIDU MD Ot 424.0 MITRAL VALVE DISORDER 09/12/2017 FRANSISCA NAIDU MD Ot 786.50 CHEST PAIN NOS 09/12/2017 DANNIE ZHONG MD Ot 784.0 HEADACHE 09/12/2017 DANNIE ZHONG MD Ot 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 09/12/2017 DANNIE ZHONG MD Ot 478.0 HYPERTRPH NASAL TURBINAT 09/12/2017 DANNIE ZHONG MD Ot V72.63 PRE-PROCEDURAL LABORATORY EXAMINATION 09/12/2017 DANNIE ZHONG MD Ot V74.8 SCREEN-BACTERIAL DIS NEC 09/12/2017 ANDRADE MILLER, ISAIAH Baker Ot 722.10 LUMBAR DISC DISPLACEMENT 09/12/2017 FRANSISCA NAIDU MD Ot 272.4 HYPERLIPIDEMIA NEC/NOS 09/12/2017 FRANSISCA NAIDU MD Ot 401.9 HYPERTENSION NOS 09/12/2017 FRANSISCA NAIDU MD Ot 785.1 PALPITATIONS 09/12/2017 FRANSISCA NAIDU MD Ot 786.59 CHEST PAIN NEC 09/12/2017 Ot M79.672 PAIN IN LEFT FOOT 09/12/2017 DANNIE ROSENBERG MD Ot M19.072 PRIMARY OSTEOARTHRITIS, LEFT ANKLE AND F 09/12/2017 DANNIE ROSENBERG MD Ot S92.345A NONDISP FX OF FOURTH METATARSAL BONE, LE 09/12/2017 DANNIE ROSENBERG MD Ot X58.XXXA EXPOSURE TO OTHER SPECIFIED FACTORS, INI 09/12/2017 DANNIE ROSENBERG MD Ot Y92.[address] IN [facility] NON-INSTITUT (PRIVATE 09/12/2017 DANNIE ROSENBERG MD Ot Y93.9 ACTIVITY, UNSPECIFIED 09/12/2017 FRANSISCA NAIDU MD Ot E78.2 MIXED HYPERLIPIDEMIA 09/12/2017 FRANSISCA NAIDU MD Ot I10 ESSENTIAL (PRIMARY) HYPERTENSION 09/12/2017 FRANSISCA NAIDU MD Ot 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 09/12/2017 FRANISSCA NAIDU MD Ot R00.2 PALPITATIONS 09/12/2017 FRANSISCA NAIDU MD Ot R07.9 CHEST PAIN, UNSPECIFIED 09/12/2017 MAMADOU BELL DO S Ot M51.26 OTHER INTERVERTEBRAL DISC DISPLACEMENT, 09/12/2017 KANDY SONG MD Ot F32.9 MAJOR DEPRESSIVE DISORDER, SINGLE EPISOD 09/12/2017 KANDY SONG MD Ot G43.909 MIGRAINE, UNSP, NOT INTRACTABLE, WITHOUT 09/12/2017 KANDY SONG MD Ot R23.8 OTHER SKIN CHANGES 09/12/2017 KANDY SONG MD Ot Z82.49 FAMILY HX OF ISCHEM HEART DIS AND OTH DI 09/12/2017 KANDY SONG MD Ot Z86.19 PERSONAL HISTORY OF OTHER INFECTIOUS AND 09/12/2017 KANDY SONG MD Ot Z87.39 PERSONAL HISTORY OF DISEASES OF THE MS S 09/12/2017 KANDY SONG MD Ot Z87.42 PERSONAL HISTORY OF OTH DISEASES OF THE 09/12/2017 KANDY SONG MD Ot Z88.0 ALLERGY STATUS TO PENICILLIN 09/12/2017 KANDY SONG MD Ot Z88.1 ALLERGY STATUS TO OTHER ANTIBIOTIC AGENT 09/12/2017 KANDY SONG MD Ot Z88.2 ALLERGY STATUS TO SULFONAMIDES STATUS 09/12/2017 KANDY SONG MD Ot Z88.5 ALLERGY STATUS TO NARCOTIC AGENT STATUS 09/12/2017 KANDY SONG MD Ot Z88.6 ALLERGY STATUS TO ANALGESIC AGENT STATUS 09/12/2017 KANDY SONG MD Ot Z90.710 ACQUIRED ABSENCE OF BOTH CERVIX AND UTER 09/12/2017 KANDY SONG MD Ot Z91.041 RADIOGRAPHIC DYE ALLERGY STATUS 09/14/2017 KANDY SONG MD Ot F32.9 MAJOR DEPRESSIVE DISORDER, SINGLE EPISOD 09/14/2017 KANDY SONG MD Ot T69.022A IMMERSION FOOT, LEFT FOOT, INITIAL ENCOU 09/14/2017 KANDY SONG MD Ot Z82.49 FAMILY HX OF ISCHEM HEART DIS AND OTH DI 09/14/2017 KANDY SONG MD Ot Z87.39 PERSONAL HISTORY OF DISEASES OF THE MS S 09/14/2017 KANDY SONG MD Ot Z88.0 ALLERGY STATUS TO PENICILLIN 09/14/2017 KANDY SONG MD Ot Z88.1 ALLERGY STATUS TO OTHER ANTIBIOTIC AGENT 09/14/2017 KANDY SONG MD Ot Z88.2 ALLERGY STATUS TO SULFONAMIDES STATUS 09/14/2017 KANDY SONG MD Ot Z88.5 ALLERGY STATUS TO NARCOTIC AGENT STATUS 09/15/2017 KANDY SONG MD Ot F32.9 MAJOR DEPRESSIVE DISORDER, SINGLE EPISOD 09/15/2017 KANDY SONG MD Ot G43.909 MIGRAINE, UNSP, NOT INTRACTABLE, WITHOUT 09/15/2017 KANDY SONG MD Ot R23.8 OTHER SKIN CHANGES 09/15/2017 KANDY SONG MD Ot Z82.49 FAMILY HX OF ISCHEM HEART DIS AND OTH DI 09/15/2017 KANDY SONG MD Ot Z86.19 PERSONAL HISTORY OF OTHER INFECTIOUS AND 09/15/2017 KANDY SONG MD Ot Z87.39 PERSONAL HISTORY OF DISEASES OF THE MS S 09/15/2017 KANDY SONG MD Ot Z87.42 PERSONAL HISTORY OF OTH DISEASES OF THE 09/15/2017 KANDY SONG MD Ot Z88.0 ALLERGY STATUS TO PENICILLIN 09/15/2017 KANDY SONG MD Ot Z88.1 ALLERGY STATUS TO OTHER ANTIBIOTIC AGENT 09/15/2017 KANDY SONG MD Ot Z88.2 ALLERGY STATUS TO SULFONAMIDES STATUS 09/15/2017 KANDY SONG MD Ot Z88.5 ALLERGY STATUS TO NARCOTIC AGENT STATUS 09/15/2017 KANDY SONG MD Ot Z88.6 ALLERGY STATUS TO ANALGESIC AGENT STATUS 09/15/2017 KANDY SONG MD Ot Z90.710 ACQUIRED ABSENCE OF BOTH CERVIX AND UTER 09/15/2017 KANDY SONG MD Ot Z91.041 RADIOGRAPHIC DYE ALLERGY STATUS Procedures There is no data. Results There is no data. Encounters ACCT No. Visit Date/Time Discharge Status Pt. Type Provider Facility Loc./Unit Complaint [id number] 09/12/2017 21:25:00 09/12/2017 22:13:00 DIS Emergency KANDY SONG MD [facility] ER POSS BONE STICKING OUT FROM FOOT, LUPUS [id number] 01/26/2017 15:21:00 01/26/2017 16:03:00 DIS Outpatient DANNIE MCCRAY DO [facility] CARD LUMBAR RADICULOPATHY [id number] 08/15/2016 12:03:00 08/15/2016 13:01:00 DIS Outpatient MELIA TEJEDA MD [facility] CARD DISC DISORDER [id number] 07/22/2016 11:54:00 07/22/2016 12:55:00 DIS Outpatient MELIA TEJEDA MD [facility] CARD DISC DISORDER W/ RADICULOPATHY [id number] 07/11/2016 07:35:00 07/11/2016 23:59:59 CLS Outpatient MAMADOU BELL DO [facility] RAD LUMBAR DEG. DISC BULGING [id number] 05/12/2016 09:56:00 05/12/2016 23:59:59 CLS Outpatient FRANSISCA NAIDU MD [facility] CARD CHEST PAIN SYNDROME [id number] 09/22/2015 15:11:00 09/22/2015 15:11:00 CAN Preadmit SAMMY CAROLINA MD [facility] ER [id number] 09/22/2015 12:23:00 09/22/2015 13:17:00 DIS Emergency SAMMY CAROLINA MD [facility] ER LIP LAC [id number] 09/10/2015 12:12:00 09/10/2015 23:59:59 CLS Outpatient DANNIE ROSENBERG MD [facility] RAD LT FOOT SPRAIN [id number] 02/12/2015 08:38:00 02/12/2015 23:59:59 CLS Outpatient FRANSISCA NAIDU MD [facility] CARD CP, HTN,HLP, PALPATATINS [id number] 05/30/2014 12:21:00 05/30/2014 23:59:59 CLS Outpatient ISAIAH ZAFAR MD [facility] RAD LOW BACK PAIN MUSCLE SPASMS [id number] 04/03/2014 06:20:00 04/03/2014 11:15:00 DIS Outpatient DANNIE ZHONG MD [facility] SDC DEVIATED SEPTUM; HYPERTROPHY OF TURBINATES [id number] 03/25/2014 09:01:00 03/25/2014 23:59:59 CLS Outpatient DANNIE ZHONG MD [facility] PREOP DEVIATED SEPTUM; HYPERTROPHY OF TURBINATES [id number] 01/16/2014 20:07:00 01/17/2014 06:45:00 DIS Outpatient GRISELDA YODER APRN [facility] SLEEP NEHEMIAS [id number] 12/25/2013 07:05:00 12/25/2013 12:45:00 DIS Outpatient FRANSISCA NAIDU MD [facility] CATH TIA,SLURRED SPEACH,HTN, HLP [id number] 12/13/2013 12:39:00 12/13/2013 23:59:59 CLS Outpatient DANNIE ZHONG MD [facility] RAD RECURRENT HEADACHE [id number] 11/04/2013 02:40:00 11/05/2013 16:30:00 DIS Inpatient ISAIAH ZAFAR MD [facility] 4TH CHEST PAIN;TIA [id number] 10/29/2013 09:51:00 10/29/2013 23:59:59 CLS Outpatient FRANSISCA NAIDU MD [facility] CARD HTN,HLP,RA,CP [id number] 02/26/2013 11:47:00 02/26/2013 23:59:59 CLS Outpatient FRANSISCA NAIDU MD [facility] RAD CP [id number] 02/22/2013 15:00:00 02/23/2013 11:35:00 DIS Inpatient FRANSISCA NAIDU MD [facility] 4TH CP; ABD PAIN [id number] 02/22/2013 09:38:00 02/22/2013 23:59:59 CLS Outpatient ISAIAH ZAFAR MD [facility] CARD CHEST PAIN [id number] 11/04/2012 21:34:00 11/04/2012 22:50:00 DIS Emergency SURY ESPINAL [facility] ER SEPTIC BURSITIS FOOT [id number] 10/30/2012 17:33:00 10/30/2012 23:59:59 CLS Outpatient [id number] 08/24/2015 09:06:00 Document Registration [id number] 07/16/2012 08:58:00 Document Registration [id number] 06/10/2012 10:34:00 Document Registration [id number] 04/03/2012 09:35:00 Document Registration [id number] 05/30/2011 11:52:00 Document Registration [id number] 03/11/2011 10:01:00 Document Registration [id number] 01/19/2011 15:45:00 Document Registration [id number] 05/26/2010 08:28:00 Document Registration 10/201607/23/2018 09:13:38 07/23/2018 23:59:59 CLS Outpatient [id number] 02/12/2015 09:01:19 ACT Document Registration [id number] 05/12/2017 09:47:00 05/12/2017 23:59:00 DIS Outpatient Mamadou Bell
[2018-08-06] MEDS ORDERED: NS IV 1000 ML 1,000 ML IV STA (13:42)
[2018-08-06] MEDS ORDERED: ONDANSETRON 4 MG/2 ML (SDV) Z0FRAN IVP ONE ×2 (13:45→14:45)
[2018-08-06 13:50] LABS: BASOPHILS % (AUTO) 0 % (0-10); EOSINOPHILS # (AUTO) 0.2 10^3/uL (0.0-0.3); EOSINOPHILS % (AUTO) 3 % (0-10); HEMATOCRIT 38 % (35-52); LYMPHOCYTES # (AUTO) 0.6 X 10^3 (1.0-4.0); LYMPHOCYTES % (AUTO) 10 % (12-44); MEAN CORPUSCULAR HEMOGLOBIN 32 PG (25-34); MEAN CORPUSCULAR HGB CONC 34 G/DL (32-36); MEAN CORPUSCULAR VOLUME 93 FL (80-99); MEAN PLATELET VOLUME 9.5 FL (7.4-10.4); MONOCYTES # (AUTO) 0.3 X 10^3 (0.0-1.0); MONOCYTES % (AUTO) 5 % (0-12); NEUTROPHILS # (AUTO) 4.8 X 10^3 (1.8-7.8); NEUTROPHILS % (AUTO) 82 % (42-75); PLATELET COUNT 231 10^3/uL (130-400); RED CELL DISTRIBUTION WIDTH 14.2 % (10.0-14.5); WHITE BLOOD COUNT 5.9 10^3/uL (4.3-11.0)
[2018-08-06 14:02] LABS: ALANINE AMINOTRANSFERASE 15 U/L (0-55); ALBUMIN 3.8 GM/DL (3.2-4.5); ALKALINE PHOSPHATASE 33 U/L (40-136); BILIRUBIN,TOTAL 0.3 MG/DL (0.1-1.0); BUN/CREATININE RATIO 8; CALCIUM 8.9 MG/DL (8.5-10.1); CARBON DIOXIDE 23 MMOL/L (21-32); CHLORIDE 107 MMOL/L (98-107); CREATININE SERUM 0.77 MG/DL (0.60-1.30); GFR ESTIMATED > 60; GLUCOSE 104 MG/DL (70-105); POTASSIUM 3.5 MMOL/L (3.6-5.0); SODIUM 139 MMOL/L (135-145); TOTAL PROTEIN 6.1 GM/DL (6.4-8.2)
--- NOTE | 2018-08-06 14:17 | ED GI ---
General Chief Complaint: General Problems/Pain Stated Complaint: N/V/D Nursing Triage Note: PATIENT HERE FOR CONCERNS ABOUT N/V/D. SHE HAS BEEN HAVING PROBLEMS SINCE STARTING A CHEMO DRUG 2 WEEKS AGO BUT IT WORSENED SIGNIFICANTLY AFTER THE DRUG WAS INCREASED ON MONDAY LAST WEEK. SHE VOLUNTARILY STOPPED HER CHEMO TODAY AND REFUSES TO CONTINUE. TODAY SHE HAS BEEN KEEPING DOWN TOAST AND RICE BUT STILL HAVING BRIGHT YELLOW DIARRHEA. Sepsis Screen: No Definite Risk (DARRICK WOODS MED STUDENT) History of Present Illness Date Seen by Provider: Aug 06, 2018 Time Seen by Provider: 13:50 Initial Comments Patient is a 53 year old female with an extensive autoimmune history, including lupus, microscopic colitis, and lichen sclerosis, who presents today for two weeks of nausea, vomiting, and diarrhea. Two weeks ago her 3rd pressman started her on daily 50 mg Azathioprine. She reports she then began to experience migraine headaches, different than her usual headaches. She states they were less severe than normal, mainly occurred in the occipital region, and cause nausea. Last Monday her Azathioprine dose was increased to daily 75 mg. The migraines continued and on Monday she started experiencing vomiting as well. She reports Monday she had vomiting, diarrhea, and a fever of 102 degrees. She went to her PCP who ran a flu test that she reports was negative and prescribed her Zofran. She reports it did not improve her vomiting. The vomiting and diarrhea continued so today she decided to come to the ED. She states she was supposed to increase her Azathioprine daily dose today to 100 mg , but has decided to stop taking it, starting with today's dose. She states that today she has been able to keep down some dry toast and plain rice. She denies any changes in diet, recent travel, or contact with individuals who have recently traveled. She denies any abdominal pain, cough, rhinorrhea, or sinus pain. She denies bloody or black tarry stools. Activities at Onset: Other (started taking Azathioprine) Associated Symptoms: Fever/Chills, Headache, Nausea/Vomiting, Other (diarrhea) (DARRICK WOODS MED STUDENT) Initial Comments Her PCP had requested labs including blood count, complete metabolic profile, pancreatic enzymes and C. difficile testing. Patient is here with nausea, vomiting and diarrhea. She is on azathioprine which she has stopped. She is better after missing today's dose. She has called her mds nurse and is awaiting answers to question with regard to stopping azathioprine. Timing/Duration: Other (2 weeks) Severity/Quality: Moderate, Cramping Location: Generalized Abdomen Radiation: No Radiation Modifying Factors: Worsens With Eating; Improves With Resting Associated Symptoms: Fever/Chills, Headache, Nausea/Vomiting (SAMMY CAROLINA MD) Allergies and Home Medications Allergies Coded Allergies: Cefadroxil Hydrate (Verified Allergy, Unknown, 11/04/13) Penicillins (Verified Allergy, Unknown, 11/04/13) iodine (Verified Allergy, Unknown, 11/04/13) meloxicam (Verified Allergy, Unknown, HIVES, 03/25/14) morphine (Verified Allergy, Unknown, 11/04/13) sulfamethoxazole (Verified Allergy, Unknown, 11/04/13) trimethoprim (Verified Allergy, Unknown, 11/04/13) Home Medications Azithromycin 250 Mg Tab, 1 TAB PO DAILY Prescribed by: MARIAH VALDERRAMA on 04/03/14 1030 Estradiol 2 Mg Tablet, 1 MG PO DAILY, (Reported) TAKES 1/2 (2MG) TABLET DAILY Hydrocodone Bit/Acetaminophen 1 Each Tablet, 1 TAB PO BID TO TID PRN for MODERATE PAIN, (Reported) NEEDED FOR MODERATE PAIN Hydrocodone Bit/Acetaminophen 1 Each Tablet, 1-2 TAB PO Q4H PRN for PAIN Prescribed by: MARIAH VALDERRAMA on 04/03/14 1030 Paroxetine Hcl 40 Mg Tablet, 40 MG PO HS, (Reported) Verapamil Hcl 120 Mg Cap24h.pel, 120 MG PO DAILY, (Reported) Patient Home Medication List Home Medication List Reviewed: Yes (DARRICK WOODS STUDENT) Home Medication List Reviewed: Yes (SAMMY CAROLINA MD) Review of Systems Review of Systems Constitutional: chills, fever EENTM: No Symptoms Reported Respiratory: No Symptoms Reported Cardiovascular: Denies Chest Pain Gastrointestinal: Denies Blood Streaked Stools; Diarrhea, Nausea, Poor Fluid Intake; Denies Rectal Bleeding; Vomiting Genitourinary: No Symptoms Reported Musculoskeletal: no symptoms reported Skin: no symptoms reported Psychiatric/Neurological: No Symptoms Reported Endocrine: No Symptoms Reported Hematologic/Lymphatic: No Symptoms Reported (DARRICK WOODS STUDENT) Respiratory: No Symptoms Reported Cardiovascular: Denies Chest Pain, Denies Edema Gastrointestinal: Abdominal Pain, Diarrhea, Vomiting (SAMMY CAROLINA MD) Past Mnjrhlc-[id number]-[id number] Hx Past Med/Social Hx: Reviewed Nursing Past Med/Soc Hx (SAMMY CAROLINA MD) Patient Social History Alcohol Use: Denies Use Recreational Drug Use: No Smoking Status: Never a Smoker 2nd Hand Smoke Exposure: No Recent Foreign Travel: No Contact w/Someone Who Travel: No Recent Infectious Disease Expo: No Recent Hopitalizations: No Physical Abuse: No Sexual Abuse: No (DARRICK WOODS STUDENT) Immunizations Up To Date Tetanus Booster (TDap): Less than 5yrs Date of Pneumonia Vaccine: Feb 23, 2013 Date of Influenza Vaccine: Feb 23, 2013 (DARRICK WOODS) Past Medical History Surgeries: Yes (RIGHT ACL REPAIR, KNEE SCOPES, CSPINE SURGERY) Respiratory: No Cardiac: Yes (murmur- HOLE IN HEART) Neurological: Yes (HEMIPLEGIC MIGRAINES) Reproductive Disorders: No Female Reproductive Disorders: Ovarian Cyst 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 Sexually Transmitted Disease: Yes (HISTORY-HPV) HIV/AIDS: No Gastrointestinal: Yes (microscopic colitis) Colitis Musculoskeletal: Yes Arthritis Endocrine: Yes Lupus Cancer: No Psychosocial: Yes Depression Integumentary: No Blood Disorders: No Adverse Reaction/Blood Tranf: No (DARRICK WOODS) Family Medical History Reviewed Nursing Family Hx (SAMMY CAROLINA MD) Family history: Asthma G8 SISTER Family history: Diabetes mellitus 19 FATHER Family history: Hypertension 19 FATHER 19 MOTHER G8 BROTHER G8 SISTER Family history: Thyroid disorder 19 FATHER Heart disease 19 MOTHER Hypercholesterolemia 19 FATHER 19 MOTHER G8 BROTHER G8 SISTER Myocardial infarction 19 FATHER Psychotic disorder G8 SISTER (GRAND MAL) Heart Disease, CAD Over 55 Years Old, Hypertension (DARRICK WOODS STUDENT) Physical Exam Vital Signs Vital Signs - First Documented 08/06/18 13:33 Pulse 72 Resp 18 B/P (MAP) 99/59 (72) Pulse Ox 100 (SAMMY CAROLINA MD) Vital Signs Capillary Refill : Less Than 3 Seconds (DARRICK WOODS MED STUDENT) Height/Weight/BMI Height: 5'8.00" Weight: 184lbs. 0oz. 83.295137xh; 30.7 BMI Method:Stated General Appearance: WD/WN, no apparent distress HEENT: normal ENT inspection, pharynx normal Neck: supple, normal inspection Respiratory: lungs clear, normal breath sounds, no respiratory distress Cardiovascular: regular rate, rhythm, no gallop, no murmur Gastrointestinal: normal bowel sounds, non tender, soft Rectal: deferred Extremities: normal range of motion, non-tender Neurologic/Psychiatric: alert, normal mood/affect, oriented x 3 Skin: normal color, warm/dry (DARRICK WOODS MED STUDENT) General Appearance: WD/WN, no apparent distress Respiratory: lungs clear, normal breath sounds, no respiratory distress Cardiovascular: regular rate, rhythm, no murmur Gastrointestinal: soft; No guarding, No rebound; tenderness (diffuse mild) Back: normal inspection, no CVA tenderness, no vertebral tenderness Neurologic/Psychiatric: alert, oriented x 3 Skin: normal color, warm/dry (SAMMY CAROLINA MD) Procedures/Interventions Suture Size: 4-0 (DARRICK WOODS MED STUDENT) Progress/Results/Core Measures Results/Orders Lab Results Laboratory Tests Test 08/06/18 13:25 08/06/18 14:10 Range/Units White Blood Count 5.9 4.3-11.0 10^3/uL Red Blood Count 4.12 L 4.35-5.85 10^6/uL Hemoglobin 13.0 11.5-16.0 G/DL Hematocrit 38 35-52 % Mean Corpuscular Volume 93 80-99 FL Mean Corpuscular Hemoglobin 32 25-34 PG Mean Corpuscular Hemoglobin Concent 34 32-36 G/DL Red Cell Distribution Width 14.2 10.0-14.5 % Platelet Count 231 130-400 10^3/uL Mean Platelet Volume 9.5 7.4-10.4 FL Neutrophils (%) (Auto) 82 H 42-75 % Lymphocytes (%) (Auto) 10 L 12-44 % Monocytes (%) (Auto) 5 0-12 % Eosinophils (%) (Auto) 3 0-10 % Basophils (%) (Auto) 0 0-10 % Neutrophils # (Auto) 4.8 1.8-7.8 X 10^3 Lymphocytes # (Auto) 0.6 L 1.0-4.0 X 10^3 Monocytes # (Auto) 0.3 0.0-1.0 X 10^3 Eosinophils # (Auto) 0.2 0.0-0.3 10^3/uL Basophils # (Auto) 0.0 0.0-0.1 10^3/uL Sodium Level 139 135-145 MMOL/L Potassium Level 3.5 L 3.6-5.0 MMOL/L Chloride Level 107 98-107 MMOL/L Carbon Dioxide Level 23 21-32 MMOL/L Anion Gap 9 5-14 MMOL/L Blood Urea Nitrogen 6 L 7-18 MG/DL Creatinine 0.77 0.60-1.30 MG/DL Estimat Glomerular Filtration Rate > 60 BUN/Creatinine Ratio 8 Glucose Level 104 70-105 MG/DL Calcium Level 8.9 8.5-10.1 MG/DL Corrected Calcium 9.1 8.5-10.1 MG/DL Total Bilirubin 0.3 0.1-1.0 MG/DL Aspartate Amino Transf (AST/SGOT) 12 5-34 U/L Alanine Aminotransferase (ALT/SGPT) 15 0-55 U/L Alkaline Phosphatase 33 L 40-136 U/L Total Protein 6.1 L 6.4-8.2 GM/DL Albumin 3.8 3.2-4.5 GM/DL Amylase Level 25 25-125 U/L Lipase 9 8-78 U/L Urine Color YELLOW Urine Clarity SLIGHTLY CLOUDY Urine pH 8 5-9 Urine Specific [place] 1.010 L 1.016-1.022 Urine Protein NEGATIVE NEGATIVE Urine Glucose (UA) NEGATIVE NEGATIVE Urine Ketones NEGATIVE NEGATIVE Urine Nitrite NEGATIVE NEGATIVE Urine Bilirubin NEGATIVE NEGATIVE Urine Urobilinogen NORMAL NORMAL MG/DL Urine Leukocyte Esterase 3+ H NEGATIVE Urine RBC (Auto) 1+ H NEGATIVE Urine RBC NONE /HPF Urine WBC 10-25 H /HPF Urine Squamous Epithelial Cells 5-10 /HPF Urine Crystals NONE /LPF Urine Bacteria TRACE /HPF Urine Casts NONE /LPF Urine Mucus NEGATIVE /LPF Urine Culture Indicated YES (SAMMY CAROLINA MD) My Orders Orders - SAMMY CAROLINA MD Ondansetron Injection (Zofran Injectio (08/06/18 13:45) Ns Iv 1000 Ml (Sodium Chloride 0.9%) (08/06/18 13:42) Saline Lock/Iv-Start (08/06/18 13:42) Cbc With Automated Diff (08/06/18 13:42) Comprehensive Metabolic Panel (08/06/18 13:42) Amylase (08/06/18 14:17) Lipase (08/06/18 14:17) C Difficile Ag + Toxin A/B. (08/06/18 14:17) Ondansetron Injection (Zofran Injectio (08/06/18 14:45) Hyoscyamine Sl Tablet (Levsin Sl Tablet) (08/06/18 14:45) Ua Culture If Indicated (08/06/18 14:37) Urine Culture (08/06/18 14:10) (SAMMY CAROLINA MD) Medications Given in ED Current Medications Medications Dose Ordered Sig/Kelley Route Start Time Stop Time Status Last Admin Dose Admin Hyoscyamine Sulfate 0.125 mg ONCE ONCE SL 08/06/18 14:45 08/06/18 14:46 DC 08/06/18 14:38 0.125 MG Ondansetron HCl 4 mg ONCE ONCE IVP 08/06/18 13:45 08/06/18 13:46 DC 08/06/18 13:58 4 MG Ondansetron HCl 4 mg ONCE ONCE IVP 08/06/18 14:45 08/06/18 14:46 DC 08/06/18 14:39 4 MG (SAMMY CAROLINA MD) Vital Signs/I&O 08/06/18 13:33 Pulse 72 Resp 18 B/P (MAP) 99/59 (72) Pulse Ox 100 (SAMMY CAROLINA MD) Blood Pressure Mean: 72 Progress Progress Note : Progress Note I have seen and evaluated the patient and agree with above except as indicated. I have directed the plan of care. IV, labs, UA, C. difficile testing, normal saline 1 L bolus and Zofran 4 mg ordered. Zofran was repeated and Levsin 0.125 mg by mouth ordered. Headache resolved with fluids and nausea improving but still has some stomach upset. 1530: Patient markedly improved after Levsin. There is question of urinary tract infection so we will treat that especially in the setting of recent fever. She has talked with her mds nurse and they will stop the azathioprine and restart another agent later as she improves with respect to her symptoms. I did discuss the case with Dr. Bell. We will hold the C. difficile test at this point and see if she gets better on other medicines and then they will order if indicated afterwards. Outpatient scripts as noted in discharge. Discharged home with return precautions. Patient and family verbalize understanding instructions and agreement with plan. (SAMMY CAROLINA MD) Departure Impression Primary Impression: Urinary tract infection Qualified Codes: N30.00 - Acute cystitis without hematuria Additional Impressions: Diarrhea Qualified Codes: R19.7 - Diarrhea, unspecified Adverse effects of medication Qualified Codes: T50.905A - Adverse effect of unspecified drugs, medicaments and biological substances, initial encounter Disposition: HOME, SELF-CARE Condition: Stable Departure-Patient Inst. Decision time for Depature: 15:37 (SAMMY CAROLINA MD) Referrals: MAMADOU BELL DO (PCP/Family) Primary Care Physician Patient Instructions: Diarrhea in Adolescents and Adults, Urinary Tract Infection, Adult (DC) Add. Discharge Instructions: All discharge instructions reviewed with patient and/or family. Voiced understanding. Drink plenty of fluids. Eat a light diet and advance as tolerated. Take medications as directed. Follow-up with your doctor for recheck and further evaluation. Keep contact with your specialist with regard to medications to treat your immune disorders. Return for worsening, fever, vomiting, weakness, breathing problems or other concerns as needed. Scripts Nitrofurantoin Macrocrystal (Nitrofurantoin) 100 Mg Capsule 100 MG PO BID, #10 CAP 0 Refills Prov: SAMMY CAROLINA MD 08/06/18 Promethazine HCl (Promethazine Tablet) 25 Mg Tablet 25 MG PO Q8H PRN for NAUSEA/VOMITING, #14 TAB 0 Refills Prov: SAMMY CAROLINA MD 08/06/18 Hyoscyamine Sulfate (Hyoscyamine Sulfate) 0.125 Mg Tab.rapdis 0.125 MG PO Q4H PRN for ABDOMINAL PAIN, #14 TAB 0 Refills Prov: SAMMY CAROLINA MD 08/06/18 Copy Copies To 1: MAMADOU BELL ROBERT M MED STUDENT Aug 06, 2018 14:17 SAMMY CAROLINA MD Aug 06, 2018 15:13
[2018-08-06 14:38] LABS: AMYLASE 25 U/L (25-125); LIPASE 9 U/L (8-78)
[2018-08-06 14:44] LABS: BILIRUBIN,URINE NEGATIVE (NEGATIVE); CLARITY,URINE SLIGHTLY CLOUDY; COLOR,URINE YELLOW; GLUCOSE, URINE (UA) NEGATIVE (NEGATIVE); KETONES,URINE NEGATIVE (NEGATIVE); LEUKOCYTE ESTERASE ,URINE 3+ (NEGATIVE); NITRITE,URINE NEGATIVE (NEGATIVE); PH,URINE 8 (5-9); PROTEIN,URINE NEGATIVE (NEGATIVE); UROBILINOGEN,URINE NORMAL (NORMAL)
[2018-08-06] MEDS ORDERED: HYOSCYAMINE 0.125 MG (LEVSIN) TAB SL ONE (14:45)
[2018-08-06 14:52] LABS: BACTERIA,URINE TRACE /HPF
[2018-08-06] MEDS ORDERED: HYOS-6 PO (15:39)
[2018-08-06] MEDS ORDERED: NITR100C PO (15:39)
[2018-08-06] MEDS ORDERED: PROM25TA14 PO (15:39)
[2018-08-06 15:55] VITALS: BP 99/59
== END 2018-08-06 15:55 | disposition home or self-care (01) ==
LOC: EDUNIT# 12:53 → ER 12:55
DX: N39.0 Urinary tract infection, site not specified (principal); R19.7 Diarrhea, unspecified; T45.1X5A Adverse effect of antineoplastic and immunosuppressive drugs, initial encounter; G43.909 Migraine, unspecified, not intractable, without status migrainosus; M32.9 Systemic lupus erythematosus, unspecified; F32.9 Major depressive disorder, single episode, unspecified; Z91.041 Radiographic dye allergy status; Z88.5 Allergy status to narcotic agent; Z88.0 Allergy status to penicillin; Z90.710 Acquired absence of both cervix and uterus; Z82.49 Family history of ischemic heart disease and other diseases of the circulatory system; Z86.19 Personal history of other infectious and parasitic diseases; Z87.19 Personal history of other diseases of the digestive system; Z88.2 Allergy status to sulfonamides; Z88.8 Allergy status to other drugs, medicaments and biological substances; Z98.890 Other specified postprocedural states; Z96.651 Presence of right artificial knee joint
CPT/HCPCS: 36415; 80053; 81000; 82150; 83690; 85025; 87088

== ENCOUNTER → 2018-09-12 | Outpatient (CLI) | payer BC ==
[~2018-09-12] MED LIST changes: +HYOS-6 PO; +NITR100C PO; +PROM25TA14 PO
--- NOTE | 2018-09-12 13:06 | Diagnostic Imaging Report ---
PROCEDURE: MRI right upper extremity without contrast. TECHNIQUE: Multiplanar, multisequence non contrast-enhanced MRI of the upper extremity was accomplished. INDICATION: Injury to thumb, thumb pain. COMPARISON: There are no prior studies available for comparison. FINDINGS: There is no abnormal signal arising from the osseous structures of the thumb to suggest bone edema or fracture. There is a small 4 mm benign-appearing cyst in the head of the first metacarpal. There is a trace amount of fluid within the metacarpophalangeal joint. This is nonspecific. There is mild soft tissue edema around the metacarpophalangeal origin of the ulnar collateral ligament. The attachment of the ligament is somewhat indistinct and could be partially torn. There is no other ligamentous or tendinous injury identified. IMPRESSION: 1. There is no evidence for an acute bony abnormality. 2. There is soft tissue edema about the metacarpophalangeal origin of the ulnar collateral and the attachment of the ulnar collateral ligament is somewhat indistinct. This does suggest a small partial tear of the ulnar collateral ligament at the metacarpophalangeal origin. 3. There is no other ligamentous or tendinous injury identified. Dictated by: Dictated on workstation # [id number]
== END ==
LOC: RAD 08:31
DX: S69.91XA Unspecified injury of right wrist, hand and finger(s), initial encounter (principal)
CPT/HCPCS: 73218

== ENCOUNTER → 2018-10-04 | Outpatient (CLI) | payer BC | LOC: CARD 08:59 | PROVIDERS: ATTEND Physician Assistant | DX: I65.29 Occlusion and stenosis of unspecified carotid artery (principal); R07.9 Chest pain, unspecified; I10 Essential (primary) hypertension; E78.5 Hyperlipidemia, unspecified | CPT/HCPCS: 93306 ==

== ENCOUNTER → 2018-10-04 | Outpatient (CLI) | payer BC ==
--- NOTE | 2018-10-05 15:53 | Diagnostic Imaging Report ---
INDICATION: Routine screening. COMPARISON: is made with prior mammogram from 02/15/2016 04/03/2012. EXAMINATION: 2D and 3D bilateral screening mammography was performed with CAD. FINDINGS: Both breasts are heterogeneously dense, limiting the sensitivity of mammography. No mass or malignant appearing microcalcifications are seen. Benign calcifications are noted. The axillae are unremarkable. IMPRESSION: No mammographic features suspicious for malignancy are identified. ACR BI-RADS Category 2: Benign findings. Result letter will be mailed to the patient. Note: At least 10% of breast cancer is not imaged by mammography. Dictated by: Dictated on workstation # [id number]
== END ==
LOC: RAD 09:44
PROVIDERS: ATTEND Obstetrics & Gynecology
DX: Z12.31 Encounter for screening mammogram for malignant neoplasm of breast (principal)
CPT/HCPCS: 77067

== ENCOUNTER 2019-05-30 10:46 | Outpatient (RCR) | payer BC | END 2019-06-19 10:25 | disposition home or self-care (01) | PROVIDERS: ATTEND Orthopaedic Surgery Hand Surgery | DX: S63.104D Unspecified dislocation of right thumb, subsequent encounter (principal) ==

== ENCOUNTER → 2019-07-30 | Outpatient (CLI) | payer BC ==
--- NOTE | 2019-07-30 16:28 | Diagnostic Imaging Report ---
INDICATION: Postmenopausal state, acute adult fractures. COMPARISON: None available. FINDINGS: AP Spine L1-L4: [BMD (g/cm2): 1.478] [T-Score: 2.3] [Z-Score: 2.3] [BMD Previous: NA] [BMD % Change: NA] LT Hip Neck: [BMD (g/cm2): 0.914] [T-Score: -0.9] [Z-Score: -0.4] LT Hip Total: [BMD (g/cm2):1.045] [T-Score:0.3] [Z-Score: 0.4] [BMD Previous: NA] [BMD % Change: NA] RT Hip Neck: [BMD (g/cm2):0.918] [T-Score:-0.9] [Z-Score:-0.4] RT Hip Total: [BMD (g/cm2):1.002] [T-score:0.0] [Z-Score:0.0] [BMD Previous:NA] [BMD % Change:NA] *Indicates significant change from prior examination based on 95% confidence level. World Health Organization criteria for BMD interpretation classify patients as Normal (T-score at or above -1.0), Osteopenic (T-score between -1.0 and -2.5) or Osteoporotic (T-score at or below -2.5). LIMITATIONS AND MODIFICATION: None. IMPRESSION: 1. Normal bone mineral density. 2. Baseline examination. 3. See below National Osteoporosis Foundation guidelines on when to potentially initiate pharmacologic therapy. Based on the National Osteoporosis Foundation Guidelines, pharmacologic treatment should be initiated in any of the following, unless clinical conditions suggest otherwise: * Any patient with prior fragility fracture of the hip or vertebrae. A spine fracture indicates 5X risk for subsequent spine fracture and 2X risk for subsequent hip fracture. * Osteoporosis (T-score <-2.5). * Postmenopausal women and men age 50 and older with low bone mass/osteopenia (T-score between -1.0 and -2.5) by DXA and 10-year major osteoporotic fracture greater than 20% or a 10-year probability of hip fracture greater than 3%. These fracture risks are supplied above in the FRAX score, if applicable. * Clinician judgement and/or patient preferences may indicate treatment for people with 10-year fracture probabilities above or below these levels. Dictated by: Dictated on workstation # [id number]
== END ==
LOC: RAD 12:14
PROVIDERS: ATTEND Family Medicine
DX: M80.08XA Age-related osteoporosis with current pathological fracture, vertebra(e), initial encounter for fracture (principal); Z78.0 Asymptomatic menopausal state
CPT/HCPCS: 77080

== ENCOUNTER 2019-09-11 11:54 | Outpatient (CLI) | payer BC ==
[~2019-09-11] VITALS: Ht 172.7 cm; Wt 86.8 kg
[2019-09-11 12:11] VITALS: BP 129/79
[2019-09-11] MEDS ORDERED: VANCOMYCIN 1 GM/NS 250 ML IVPB IV SCH ×2 (12:30)
[2019-09-11] MEDS ORDERED: ESTR1TAB24 PO (14:18)
[2019-09-11] MEDS ORDERED: HYDR-4226 PO (14:18)
[2019-09-11] MEDS ORDERED: NIFE-25 PO (14:24)
[2019-09-11] MEDS ORDERED: DULO60CA59 PO (14:24)
[2019-09-11] MEDS ORDERED: TOFA11TA PO (14:24)
[2019-09-11] MEDS ORDERED: TIZA2CAP9 PO (14:24)
[2019-09-11] MEDS ORDERED: LISI-556 PO (14:24)
[2019-09-11] MEDS ORDERED: PRED5TAB PO (14:32)
[2019-09-11] MEDS ORDERED: BIOT10006 PO (14:52)
[2019-09-11] MEDS ORDERED: HYDR200T46 PO (14:52)
[2019-09-11] MEDS ORDERED: CALC-140 PO (14:52)
[2019-09-11] MEDS ORDERED: GABA-488 PO (14:52)
[2019-09-11] MEDS ORDERED: MAGN400T39 PO (14:52)
[2019-09-11] MEDS ORDERED: LACT1CAP91 PO (14:52)
[2019-09-11] MEDS ORDERED: MULT-1136 PO (14:52)
[2019-09-11] MEDS ORDERED: VITA1TAB33 PO (14:52)
[2019-09-11] MEDS ORDERED: OMEG1CAP24 PO (14:52)
[2019-09-11] MEDS ORDERED: TOPI200C6 PO (14:52)
[2019-09-11] MEDS ORDERED: TRAM50TA3 PO (14:52)
[2019-09-12] MEDS ORDERED: CITA40TA11 PO (15:37)
[2019-09-12] MEDS ORDERED: ERGO400C PO (15:37)
[2019-09-12] MEDS ORDERED: MUPI22OI2 TOP (15:37)
[2019-09-12] MEDS ORDERED: CLIN300C11 PO (15:37)
[2019-09-12] MEDS ORDERED: FEXO1TAB43 PO (15:37)
[2019-09-12] MEDS ORDERED: HYDR-83 PO (15:37)
[2019-09-12] MEDS ORDERED: ESTR2TAB VG (15:37)
[2019-09-12] MEDS ORDERED: FLUT9.9S NS (15:39)
[2019-09-12] MEDS ORDERED: ESTR2TAB4 PO (15:42)
== END 2019-09-11 14:30 | disposition home or self-care (01) ==
LOC: SDC 11:54
PROVIDERS: ATTEND Family Medicine
DX: L03.011 Cellulitis of right finger (principal)
CPT/HCPCS: 96365

== ENCOUNTER 2019-09-12 11:16 | Inpatient (IN) | payer BC ==
[~2019-09-12] VITALS: Ht 172.7 cm; Wt 89.5 kg
[~2019-09-12 11:16] MED LIST changes: +BIOT10006 PO; +CALC-140 PO; +DULO60CA59 PO; +ESTR1TAB24 PO; +HYDR-4226 PO; +LACT1CAP91 PO; +LISI-556 PO; +MAGN400T39 PO; +MULT-1136 PO; +NIFE-25 PO; +PRED5TAB PO; +TIZA2CAP9 PO; +TOFA11TA PO; +TOPI200C6 PO; +TRAM50TA3 PO; +VITA1TAB33 PO
[2019-09-12] MEDS ORDERED: VANCOMYCIN INJECTION 0.1 MG in NS (IVPB) 250 ML IV SCH (11:30)
[2019-09-12] MEDS ORDERED: PATIENT MAY USE OWN MEDS, ALL PO SCH (11:30)
[2019-09-12] MEDS ORDERED: ONDANSETRON 4 MG/2 ML (SDV) Z0FRAN IVP PRN (11:30)
--- NOTE | 2019-09-12 11:35 | NUR ---
ROB CASE admitted to room 410-1, with an admitting diagnosis of RIGHT INDEX FINGER CELLULITIS, on 09/12/19 from DIRECT ADMIT via AMBULATORY, accompanied by SELF. ROB CASE introduced to surroundings, call light, bed controls, phone, TV, temperature control, lights, meal times, smoking policy, visitor policy, side rail policy, bathrooms and showers. Patient Rights given to patient in the handbook. ROB CASE verbalizes understanding that [facility] is not responsible for the loss or damage to any personal effects or valuables that are kept in the patients possession during their hospitalization. The following Patient Care Plans were discussed with the PATIENT: Discharge Planning, CELLULITIS and KNOWLEDGE DEFICIT. ROB CASE verbalizes understanding of Interdisciplinary Patient Education. Patient and/or family were informed about the Rapid Response Team and its purpose.
[2019-09-12 11:50] VITALS: BP 139/89
[2019-09-12 12:00] VITALS: BP 139/89
[2019-09-12] MEDS: CLINDAMYCIN 900 MG/50 ML IVPB 50 ML IV SCH ×2 (12:13→21:32)
[2019-09-12] MEDS: LACTOBACILLUS ACIDOPHILUS (PROBIOTIC) CAPSULE PO SCH ×2 (12:13→17:45)
--- NOTE | 2019-09-12 12:23 | NUR ---
PTD VANCOMYCIN LABS: PENDING PLAN: VANCOMYCIN 20MG/KG (1,750MG IV LOADING DOSE), THEN START 15MG/KG 1,250MG IV Q 12 HOURS. WILL CHECK A TROUGH PRIOR TO 3RD DOSE 09/12 @ 1100. ADJUST DOSE IF LABS/SCR ELEVATED.
[2019-09-12] MEDS ORDERED: VANCOMYCIN 1,750 MG/NS 500 ML IVPB IV SCH ×2 (12:30)
[2019-09-12] MEDS: ENOXAPARIN 40 MG/0.4 ML (LOVENOX) SYR SC SCH (12:56)
[2019-09-12 13:29] LABS: BASOPHILS % (AUTO) 0 % (0-10); EOSINOPHILS # (AUTO) 0.1 10^3/uL (0.0-0.3); EOSINOPHILS % (AUTO) 1 % (0-10); HEMATOCRIT 37 % (35-52); HEMOGLOBIN 11.7 G/DL (11.5-16.0); LYMPHOCYTES # (AUTO) 1.2 X 10^3 (1.0-4.0); LYMPHOCYTES % (AUTO) 14 % (12-44); MEAN CORPUSCULAR HEMOGLOBIN 29 PG (25-34); MEAN CORPUSCULAR HGB CONC 32 G/DL (32-36); MEAN CORPUSCULAR VOLUME 91 FL (80-99); MEAN PLATELET VOLUME 9.6 FL (7.4-10.4); MONOCYTES # (AUTO) 0.5 X 10^3 (0.0-1.0); MONOCYTES % (AUTO) 6 % (0-12); NEUTROPHILS # (AUTO) 7.4 X 10^3 (1.8-7.8); NEUTROPHILS % (AUTO) 80 % (42-75); PLATELET COUNT 256 10^3/uL (130-400); RED CELL DISTRIBUTION WIDTH 14.2 % (10.0-14.5); WHITE BLOOD COUNT 9.2 10^3/uL (4.3-11.0)
--- NOTE | 2019-09-12 13:35 | History & Physical ---
History of Present Illness History of Present Illness Reason for visit/HPI This is a 54 year old female with mixed connective tissue disease, on immunosuppressive therapy, who presented to my office with worsening redness, pain and swelling in her right index finger. She had a cut to this finger 5 days prior on a piece of metal. She was initially started on oral clindamycin and then was sent yesterday for IV Vancomycin. Due to failure of outpatient antibiotics and her numerous drug allergies along with her immunosuppressive status, it was decided to admit her for IV antibiotics. Date of Admission Sep 12, 2019 at 11:25 Date Seen by a Provider: Sep 12, 2019 Time Seen by a Provider: 11:00 I consulted on this patient on 09/12/19 13:29 Attending Physician Sweetie Rubio DO Admitting Physician Sweetie Rubio DO Consult Allergies and Home Medications Allergies Coded Allergies: Peofehu-Aka-Bdp Reductase Inhibitor (Verified Allergy, Mild, Diarrhea,Nausea, 09/11/19) azathioprine (Verified Allergy, Mild, Vomiting, 09/11/19) Cefadroxil Hydrate (Verified Allergy, Unknown, 11/04/13) Penicillins (Verified Allergy, Unknown, 11/04/13) iodine (Verified Allergy, Unknown, 11/04/13) meloxicam (Verified Allergy, Unknown, HIVES, 03/25/14) metronidazole (Verified Allergy, Unknown, Rash, 09/11/19) morphine (Verified Allergy, Unknown, 11/04/13) sulfamethoxazole (Verified Allergy, Unknown, 11/04/13) trimethoprim (Verified Allergy, Unknown, 11/04/13) Home Medications B Complex with Vitamin C 1 Each Tablet, 1 EACH PO DAILY, (Reported) Biotin 10,000 Mcg Tab.rapdis, 10,000 MCG PO DAILY, (Reported) Calcium Carbonate/Vitamin D3 1 Each Tablet, 1 EACH PO DAILY, (Reported) Duloxetine HCl 60 Mg Capsule.dr, 60 MG PO DAILY, (Reported) Estradiol 1 Mg Tablet, 1 MG PO DAILY, (Reported) Gabapentin 300 Mg Capsule, 9 CAP PO DAILY, (Reported) Hydrocodone/Acetaminophen 1 Each Tablet, 1-2 TAB PO Q4-6HR PRN for PAIN-MODERATE (5-7), (Reported) Hydroxychloroquine Sulfate 200 Mg Tablet, 200 MG PO BID, (Reported) Lactobacill 46/B.animal/Inulin 1 Each Capsule, 1 EACH PO DAILY, (Reported) Lisinopril 5 Mg Tablet, 5 MG PO DAILY, (Reported) Magnesium Oxide 400 Mg Tablet, 400 MG PO DAILY, (Reported) Multivitamin 1 Each Tablet, 1 EACH PO DAILY, (Reported) Nifedipine 30 Mg Tab.er.24, 30 MG PO DAILY, (Reported) [place]-3 Fatty Acids/Fish Oil 1 Each Capsule.dr, 1 EACH PO DAILY, (Reported) REPORTS DOSE 2700 MG DAILY Prednisone 5 Mg Tablet, 7.5 MG PO DAILY, (Reported) TAKE ONE AND A HALF 5 MG TABS DAILY FOR TOTAL DOSE OF 7.5 MG Tizanidine HCl 2 Mg Capsule, 2 MG PO HS, (Reported) Tofacitinib Citrate 11 Mg Tab.er.24h, 11 MG PO DAILY, (Reported) Topiramate 200 Mg Cap.er.24h, 200 MG PO DAILY, (Reported) Tramadol HCl 50 Mg Tablet, 2 TAB PO TID, (Reported) Patient Home Medication List Home Medication List Reviewed: Yes Past Sdunroj-Gevpmc-Aznddl Hx Past Med/Social Hx: Reviewed Nursing Past Med/Soc Hx Patient Social History Marrital Status: Alcohol Use: Rarely Uses Number of Drinks Today: 0 Alcohol Beverage of Choice: Wine Recreational Drug Use: No Smoking Status: Never a Smoker 2nd Hand Smoke Exposure: No Physical Abuse Screen: No Sexual Abuse: No Recent Foreign Travel: No Contact w/other who traveled: No Recent Hopitalizations: No Recent Infectious Disease Expo: No Immunizations Up To Date Tetanus Booster (TDap): Less than 5yrs Pediatric: Yes Date of Pneumonia Vaccine: Nov 19, 2018 Date of Influenza Vaccine: Feb 23, 2013 Seasonal Allergies Seasonal Allergies: No Past Medical History Reproductive: No Sexually Transmitted Disease: Yes (HISTORY-HPV) HIV/AIDS: No Female Reproductive Disorders: Ovarian Cyst Hysterectomy Gastrointestinal: Colitis Musculoskeletal: Arthritis Endocrine: Lupus Psychosocial: Depression History of Blood Disorders: No Adverse Reaction to Blood Betts: No Family History Family history: Asthma G8 SISTER Family history: Diabetes mellitus 19 FATHER Family history: Hypertension 19 FATHER 19 MOTHER G8 BROTHER G8 SISTER Family history: Thyroid disorder 19 FATHER Heart disease 19 MOTHER Hypercholesterolemia 19 FATHER 19 MOTHER G8 BROTHER G8 SISTER Myocardial infarction 19 FATHER Psychotic disorder G8 SISTER (GRAND MAL) Heart Disease, CAD Over 55 Years Old, Hypertension Review of Systems Constitutional: chills, diaphoresis EENTM: nose congestion Respiratory: No no symptoms reported, No see HPI, No cough, No dyspnea on exertion, No hemoptysis, No orthopnea, No phlegm, No short of breath, No stridor, No wheezing, No other Cardiovascular: No no symptoms reported, No see HPI, No chest pain, No edema, No Hx of Intervention, No palpitations, No syncope, No vascular heart diseas, No other Gastrointestinal: No RUQ, No LUQ, No RLQ, No LLQ, No no symptoms reported, No see HPI, No abdominal pain, No constipation, No diarrhea, No dysphagia, No hematemesis, No heartburn, No jaundice, No loss of appetite, No melena, No nausea, No vomiting, No other Genitourinary: No no symptoms reported, No see HPI, No decreased output, No discharge, No dysuria, No frequency, No hematuria, No hesitancy, No incontinence, No nocturia, No pain, No other Musculoskeletal: joint pain, joint swelling (right index finger) Skin: other (right index finger redness) Psychiatric/Neurological: Weakness, Other (dizziness) Physical Exam Vital Signs Vital Signs - First Documented 09/12/19 09/12/19 11:45 11:50 Temp 36.7 Pulse 93 Resp 20 B/P (MAP) 139/89 Pulse Ox 97 O2 Delivery Room Air Capillary Refill : Less Than 3 Seconds Height, Weight, BMI Height: 5'8.00" Weight: 184lbs. 0oz. 83.656931nh; 30.00 BMI Method:Stated General Appearance: No Apparent Distress HEENT: Normal ENT Inspection Neck: Supple Respiratory: Lungs Clear Cardiovascular: Regular Rate, Rhythm Gastrointestinal: Normal Bowel Sounds, Non Tender, Soft Rectal: Deferred Back: No CVA Tenderness Extremity: Non Tender, No Calf Tenderness, No Pedal Edema Neurologic/Psychiatric: Alert, Oriented x3 Skin: Warm/Dry, Erythema (right index finger with swelling and pain from PIP out) Assessment/Plan Assessment and Plan 1. Right Index Finger Cellulitis with failed outpatient treatment--admit for IV Vancomycin, IV Clindamycin 2. Mixed Connective Tissue Disease--on immunosuppressive therapy 3. Hypertension--resume home meds Admission Diagnosis Admission Status: Inpatient Order (span 2 midnights) Reason for Inpatient Admission: Will need at least 48hrs of IV abx Clinical Quality Measures DVT/VTE Risk/Contraindication: Risk Factor Score Per Nursin RFS Level Per Nursing on Admit: 1=Low/No VTE PPX SWEETIE RUBIO DO Sep 12, 2019 13:34
[2019-09-12 13:43] LABS: CHLORIDE 107 MMOL/L (98-107); POTASSIUM 3.8 MMOL/L (3.6-5.0); SODIUM 139 MMOL/L (135-145)
[2019-09-12 13:44] LABS: CALCIUM 9.2 MG/DL (8.5-10.1)
[2019-09-12 13:46] LABS: GLUCOSE 107 MG/DL (70-105); TOTAL PROTEIN 6.4 GM/DL (6.4-8.2)
[2019-09-12 13:47] LABS: BILIRUBIN,TOTAL 0.3 MG/DL (0.1-1.0); CARBON DIOXIDE 22 MMOL/L (21-32)
[2019-09-12 13:49] LABS: ALKALINE PHOSPHATASE 39 U/L (40-136); CREATININE SERUM 0.86 MG/DL (0.60-1.30); GFR ESTIMATED > 60
[2019-09-12 13:50] LABS: BUN/CREATININE RATIO 19
[2019-09-12 13:52] LABS: ALANINE AMINOTRANSFERASE 20 U/L (0-55)
[2019-09-12 13:54] LABS: ERYTHROCYTE SEDIMENTATION RATE 14 MM/HR (0-30)
[2019-09-12] MEDS: HYDROcodone/APAP 10 MG/325 MG (LORTAB) TAB PO PRN ×2 (13:56→21:32)
[2019-09-12] MEDS ORDERED: ESTR2TAB VG (15:37)
[2019-09-12] MEDS ORDERED: ERGO400C PO (15:37)
[2019-09-12] MEDS ORDERED: CITA40TA11 PO (15:37)
[2019-09-12] MEDS ORDERED: FEXO1TAB43 PO (15:37)
[2019-09-12] MEDS ORDERED: HYDR-83 PO (15:37)
[2019-09-12] MEDS ORDERED: MUPI22OI2 TOP (15:37)
[2019-09-12] MEDS ORDERED: CLIN300C11 PO (15:37)
[2019-09-12] MEDS ORDERED: FLUT9.9S NS (15:39)
[2019-09-12] MEDS ORDERED: ESTR2TAB4 PO (15:42)
[2019-09-12 16:00] VITALS: BP 110/77
--- NOTE | 2019-09-12 16:27 | NUR ---
SPOKE WITH THE PT (SHE HAD A MED LIST AND MOST OF HER MEDICATIONS WITH HER) AND WENT THRU THE EXT MED HISTORY TO COMPLETE THE MED REC ESTRACE 2MG- THE DIRECTIONS ARE 1 TAB DAILY HOWEVER THE PT BREAKS IT IN HALF AND ONLY TAKES 1MG DAILY OTC MEDS: OMEGA 3 MAG-OX VIT D3 SUPER B COMPLEX PROBIOTIC MTV BIOTIN CALCIUM W/ D3
[2019-09-12] MEDS: IBUPROFEN 600 MG (MOTRIN) TAB PO PRN (18:44)
--- NOTE | 2019-09-12 18:55 | NUR ---
LEFT MESSAGE FOR DR RUBIO REGARDING RESTARTING HOME MEDICATIONS.
[2019-09-12] MEDS ORDERED: NIFEdipine ER 30 MG (PROCARDIA XL) TAB PO PRN (19:30)
[2019-09-12 20:00] VITALS: BP 127/68
--- NOTE | 2019-09-12 20:15 | NUR ---
CALL FROM PHARMACY RE: ZOFRAN/CITALOPRAM CAUSING QT PROLONGING. CONTACTED DR RUBIO SAME ORDER TO FELY BERMAN. CONTACTED PHARMACY TO NOTIFY WILL FELY BERMAN; FELY'Rand BERMAN.
[2019-09-12] MEDS: GABAPENTIN 300 MG (NEURONTIN) CAP PO SCH (21:39)
[2019-09-13] VITALS: BP 103/54
[2019-09-13] MEDS: VANCOMYCIN 1250 MG/NS 250 ML IVPB IV SCH ×4 (00:18→12:01)
[2019-09-13 04:00] VITALS: BP 110/66
[2019-09-13] MEDS: CLINDAMYCIN 900 MG/50 ML IVPB 50 ML IV SCH ×3 (05:59→21:13)
[2019-09-13] MEDS: IBUPROFEN 600 MG (MOTRIN) TAB PO PRN (06:06)
[2019-09-13 08:00] VITALS: BP 122/76
[2019-09-13] MEDS ORDERED: TOPIRAMATE 200 MG PO SCH (09:00)
[2019-09-13] MEDS ORDERED: FLUTICASONE NASAL SPRAY (FLONASE) 16 GM BTL NS PRN (09:00)
[2019-09-13] MEDS: LACTOBACILLUS ACIDOPHILUS (PROBIOTIC) CAPSULE PO SCH ×3 (09:20→19:24)
[2019-09-13] MEDS: MAGNESIUM OXIDE (MAG-OX)400 MG TAB PO SCH (09:20)
[2019-09-13] MEDS: lisINopril 5 MG (PRINIVIL) TABLET PO SCH (09:21)
[2019-09-13] MEDS: GABAPENTIN 300 MG (NEURONTIN) CAP PO SCH ×3 (09:21→21:11)
[2019-09-13] MEDS: ESTRADIOL 1 MG TAB (ESTRACE) PO SCH (09:21)
[2019-09-13] MEDS: predniSONE 5 MG TAB PO SCH (09:21)
--- NOTE | 2019-09-13 09:22 | NUR ---
patient took her own home meds except mag and probiotic
[2019-09-13] MEDS: HYDROcodone/APAP 10 MG/325 MG (LORTAB) TAB PO PRN (10:48)
[2019-09-13] MEDS ORDERED: TROUGH ORDER-PHARMACY XX ONE (11:00)
[2019-09-13 12:00] VITALS: BP 116/76
--- NOTE | 2019-09-13 12:09 | Diagnostic Imaging Report ---
INDICATION: Right index finger pain 3 views of the right index finger shows a small dorsal plate fracture of the base of the distal phalanx of the index finger. There is also a small cortical fragment at the PIP joint in a similar location. Neither of these appear acute. IMPRESSION: Probable old cortical avulsion fractures of the PIP and DIP dorsal plates. Dictated by: Dictated on workstation # [id number]
--- NOTE | 2019-09-13 12:18 | Progress Note ---
Subjective Date Seen by a Provider: Sep 13, 2019 Time Seen by a Provider: 10:45 Subjective/Events-last exam Fwup right index finger cellulitis, immunosuppression due to meds. Right finger still swollen and red but has improved some and ROM at middle knuckle better. Objective Exam Vital Signs Date Time Temp Pulse Resp B/P (MAP) Pulse Ox O2 Delivery O2 Flow Rate FiO2 09/13/19 08:00 36.8 61 18 122/76 (91) 97 Room Air 09/13/19 04:00 36.3 64 18 110/66 (81) 94 Room Air 09/13/19 00:00 36.4 66 18 103/54 (70) 95 Room Air 09/12/19 20:00 37.0 71 18 127/68 (87) 96 Room Air 09/12/19 20:00 96 Room Air 09/12/19 16:00 36.7 74 18 110/77 (88) 98 Room Air I & O 09/13/19 07:00 Intake Total 3690.0 ml Balance 3690.0 ml Capillary Refill : Less Than 3 SecondsLess Than 3 Seconds General Appearance: No Apparent Distress Neck: Supple Respiratory: Lungs Clear Cardiovascular: Regular Rate, Rhythm Extremity: Non Tender, No Calf Tenderness, No Pedal Edema Neurologic/Psychiatric: Alert, Oriented x3 Skin: Erythema (right index finger around tip and DIP with associated swelling) Results Lab Laboratory Tests 09/12/19 13:20: White Blood Count 9.2, Red Blood Count 4.04L, Hemoglobin 11.7, Hematocrit 37, Mean Corpuscular Volume 91, Mean Corpuscular Hemoglobin 29, Mean Corpuscular Hemoglobin Concent 32, Red Cell Distribution Width 14.2, Platelet Count 256, Mean Platelet Volume 9.6, Neutrophils (%) (Auto) 80H, Lymphocytes (%) (Auto) 14, Monocytes (%) (Auto) 6, Eosinophils (%) (Auto) 1, Basophils (%) (Auto) 0, Neutrophils # (Auto) 7.4, Lymphocytes # (Auto) 1.2, Monocytes # (Auto) 0.5, Eosinophils # (Auto) 0.1, Basophils # (Auto) 0.0, Erythrocyte Sedimentation Rate 14, Sodium Level 139, Potassium Level 3.8, Chloride Level 107, Carbon Dioxide Level 22, Anion Gap 10, Blood Urea Nitrogen 16, Creatinine 0.86, Estimat Glomerular Filtration Rate > 60, BUN/Creatinine Ratio 19, Glucose Level 107H, Calcium Level 9.2, Corrected Calcium 9.2, Total Bilirubin 0.3, Aspartate Amino Transf (AST/SGOT) 18, Alanine Aminotransferase (ALT/SGPT) 20, Alkaline Phosphatase 39L, C-Reactive Protein High Sensitivity 0.92H, Total Protein 6.4, Albumin 4.0 09/13/19 10:55: Vancomycin Level Trough 14.3 Assessment/Plan Assessment/Plan Assess & Plan/Chief Complaint 1. Right Index Finger Cellulitis in Immunocompromised patient with numerous drug allergies--on Vancomycin and Clindamycin--will check plain x-ray to make sure no FB identified Clinical Quality Measures Admission Status Admission Dx 1. Right Index Finger Cellulitis with failed outpatient treatment--admit for IV Vancomycin, IV Clindamycin 2. Mixed Connective Tissue Disease--on immunosuppressive therapy 3. Hypertension--resume home meds DVT/VTE Risk/Contraindication: Risk Factor Score Per Nursin RFS Level Per Nursing on Admit: 1=Low/No VTE PPX MAMADOU RUBIO DO Sep 13, 2019 12:18
--- NOTE | 2019-09-13 13:05 | NUR ---
"RD ASSESSMENT PMHx: mixed connective tissue disease; colitis; lupus; HTN PT INTERACTION: Pt was awake and pleasant during nutrition assessment. Pt states current appetite is good. Note avg PO intake 92% x1d, per chart review. Pt states trying to follow low-CHO diet at home, and has no issues with chewing/swallowing food. Pt states no recent issues with nausea or vomiting. Pt states chronic issues with loose stools, and that her last BM was 09/12. Note pt not currently on bowel regimen per chart review. Pt states no recent wt changes. Note recent 13# wt gain x1mon, per chart review. Note presence of wound on right index finger, per chart review. ABNORMAL NUTRITION-RELATED LAB VALUES LOW: alkphos 39 HIGH: glu 107 Est. kcal needs: 6933-3320 kcal | 20-25 kcal/kg Est. Pro needs: 107-125 g Pro | 1.2-1.4 g Pro/kg PES STATEMENT: Inadequate protein intake (NI-5.6.1) related to increased protein needs as evidenced by presence of wounds (right index finger) INTERVENTION: Continue with current diet order of Regular diet. Add Ensure HP to meals TID. Provides 160 kcal and 16 g Pro per serving for perceived benefit to wound healing. Will continue to follow and reassess as pt needs, intake, and status change. MONITOR/EVALUATE: PO Intake; Plan of Care; Hydration Status; Weight Status; Lab Values Yoli Haro, MS, RD, LD"
[2019-09-13] MEDS: ENOXAPARIN 40 MG/0.4 ML (LOVENOX) SYR SC SCH (13:54)
[2019-09-13 15:51] VITALS: BP 94/59
[2019-09-13 19:07] VITALS: BP 98/62
[2019-09-13] MEDS ORDERED: NS IV 500 ML 500 ML ONE (19:33)
[2019-09-13] MEDS ORDERED: NS IV 500 ML 500 ML IV ONE (19:45)
--- NOTE | 2019-09-13 21:23 | NUR ---
pt b/p 98/62 hr 64 1934-this rn called Dr. Hall covering provider for Dr. Bell to report decrease in b/p. order received to give 400ml NS Bolus to pt. 2122-b/p 122/66
[2019-09-13] MEDS: HYDROXYCHLOROQUINE 200 MG (PLAQUENIL) TAB PO SCH (22:20)
--- NOTE | 2019-09-13 22:37 | NUR ---
2157-pt is requesting to have home plaquenil 200 mg BID PO restarted this rn contacted dr. hernández order received.
[2019-09-14 00:12] VITALS: BP 101/55
[2019-09-14] MEDS: IBUPROFEN 600 MG (MOTRIN) TAB PO PRN ×2 (00:19→20:30)
[2019-09-14] MEDS: VANCOMYCIN 1250 MG/NS 250 ML IVPB IV SCH ×4 (00:20→12:04)
[2019-09-14 04:44] VITALS: BP 105/56
[2019-09-14] MEDS: CLINDAMYCIN 900 MG/50 ML IVPB 50 ML IV SCH ×3 (05:55→21:34)
[2019-09-14] MEDS: HYDROXYCHLOROQUINE 200 MG (PLAQUENIL) TAB PO SCH ×2 (08:04→17:43)
[2019-09-14 08:25] VITALS: BP 111/71
[2019-09-14] MEDS: ESTRADIOL 1 MG TAB (ESTRACE) PO SCH (09:13)
[2019-09-14] MEDS: LACTOBACILLUS ACIDOPHILUS (PROBIOTIC) CAPSULE PO SCH ×3 (09:13→17:43)
[2019-09-14] MEDS: lisINopril 5 MG (PRINIVIL) TABLET PO SCH (09:13)
[2019-09-14] MEDS: GABAPENTIN 300 MG (NEURONTIN) CAP PO SCH ×3 (09:13→20:29)
[2019-09-14] MEDS: MAGNESIUM OXIDE (MAG-OX)400 MG TAB PO SCH (09:13)
[2019-09-14] MEDS: predniSONE 5 MG TAB PO SCH (09:14)
[2019-09-14] MEDS: HYDROcodone/APAP 10 MG/325 MG (LORTAB) TAB PO PRN (09:18)
--- NOTE | 2019-09-14 10:40 | Progress Note - Hospitalist ---
Subjective HPI/CC On Admission Date Seen by Provider: Sep 14, 2019 Time Seen by Provider: 10:33 Subjective/Events-last exam Pt reports doing well. Has been up and ambulatory. Swelling done and able to move finger more today. Redness improving per her pictures. Objective Exam Vital Signs Vital Signs Date Time Temp Pulse Resp B/P (MAP) Pulse Ox O2 Delivery O2 Flow Rate FiO2 09/14/19 08:25 37.1 75 18 111/71 (84) 98 Room Air Capillary Refill : Less Than 3 SecondsLess Than 3 Seconds General Appearance: No Apparent Distress, WD/WN Respiratory: Lungs Clear, No Respiratory Distress Cardiovascular: Regular Rate, Rhythm, No Murmur Extremity: Other (right index finger with erythem and edema, improved from pictures patient provided of previous days, good cap refill) Results/Procedures Lab Patient resulted labs reviewed. Assessment/Plan Assessment and Plan Assess & Plan/Chief Complaint 1. Right Index Finger Cellulitis with failed outpatient treatment--Continue on IV Vancomycin, IV Clindamycin, continue probiotic, will likely be able to DC tomorrow 2. Mixed Connective Tissue Disease--on immunosuppressive therapy- on Plaquenil and prednisone but off Xeljanz, continue home pain meds 3. Hypertension--Continue home meds Clinical Quality Measures DVT/VTE Risk/Contraindication: Risk Factor Score Per Nursin RFS Level Per Nursing on Admit: 1=Low/No VTE PPX AMENA MCCANN MD Sep 14, 2019 10:40
[2019-09-14 11:50] VITALS: BP 129/63
[2019-09-14] MEDS: ENOXAPARIN 40 MG/0.4 ML (LOVENOX) SYR SC SCH (13:29)
[2019-09-14 15:33] VITALS: BP 112/55
[2019-09-14 19:14] VITALS: BP 111/62
[2019-09-15] MEDS: VANCOMYCIN 1250 MG/NS 250 ML IVPB IV SCH ×2 (00:01)
[2019-09-15 00:37] VITALS: BP 113/67
[2019-09-15 04:00] VITALS: BP 109/69
[2019-09-15] MEDS: CLINDAMYCIN 900 MG/50 ML IVPB 50 ML IV SCH (05:35)
[2019-09-15] MEDS: HYDROXYCHLOROQUINE 200 MG (PLAQUENIL) TAB PO SCH (06:19)
[2019-09-15] MEDS: IBUPROFEN 600 MG (MOTRIN) TAB PO PRN (06:19)
[2019-09-15 06:31] LABS: HEMOGLOBIN 11.2 G/DL (11.5-16.0); MEAN PLATELET VOLUME 9.8 FL (7.4-10.4); RED CELL DISTRIBUTION WIDTH 14.2 % (10.0-14.5)
[2019-09-15 06:51] LABS: BUN/CREATININE RATIO 18; CALCIUM 8.5 MG/DL (8.5-10.1); CARBON DIOXIDE 21 MMOL/L (21-32); CHLORIDE 110 MMOL/L (98-107); CREATININE SERUM 0.72 MG/DL (0.60-1.30); GFR ESTIMATED > 60; GLUCOSE 80 MG/DL (70-105); POTASSIUM 3.6 MMOL/L (3.6-5.0); SODIUM 141 MMOL/L (135-145)
--- NOTE | 2019-09-15 07:15 | Discharge Inst-Simple/Standard ---
Discharge Inst-Standard Discharge Medications New, Converted or Re-Newed RX: Transmitted to Pharmacy Patient Instructions/Follow Up Plan of Care/Instructions/FU: Please continue to take your medications as written. Please follow up with Dr Bell this week to follow up your hospital stay. Activity as Tolerated: Yes Discharge Diet: No Restrictions Return to The Hospital For: Fever, worsening swelling, drainage, difficiluty moving your finger, if you feel you are getting worse. AMENA MCCANN MD Sep 15, 2019 07:15
[2019-09-15 08:00] VITALS: BP 132/71
[2019-09-15] MEDS: predniSONE 5 MG TAB PO SCH (08:11)
[2019-09-15] MEDS: MAGNESIUM OXIDE (MAG-OX)400 MG TAB PO SCH (08:11)
[2019-09-15] MEDS: LACTOBACILLUS ACIDOPHILUS (PROBIOTIC) CAPSULE PO SCH (08:11)
[2019-09-15] MEDS: ESTRADIOL 1 MG TAB (ESTRACE) PO SCH (08:12)
[2019-09-15] MEDS: lisINopril 5 MG (PRINIVIL) TABLET PO SCH (08:12)
[2019-09-15] MEDS: GABAPENTIN 300 MG (NEURONTIN) CAP PO SCH (08:12)
--- NOTE | 2019-09-15 10:44 | Discharge Summary ---
Diagnosis/Chief Complaint Date of Admission Sep 12, 2019 at 11:25 Date of Discharge Discharge Date: Sep 15, 2019 Primary Care Sweetie Bell DO Discharge Summary Discharge Physical Exam Allergies: Coded Allergies: Yrwjftm-Nsb-Uhj Reductase Inhibitor (Verified Allergy, Mild, Diarrhea,Nausea, 09/11/19) azathioprine (Verified Allergy, Mild, Vomiting, 09/11/19) Cefadroxil Hydrate (Verified Allergy, Unknown, 11/04/13) Penicillins (Verified Allergy, Unknown, 11/04/13) iodine (Verified Allergy, Unknown, 11/04/13) meloxicam (Verified Allergy, Unknown, HIVES, 03/25/14) metronidazole (Verified Allergy, Unknown, Rash, 09/11/19) morphine (Verified Allergy, Unknown, 11/04/13) sulfamethoxazole (Verified Allergy, Unknown, 11/04/13) trimethoprim (Verified Allergy, Unknown, 11/04/13) Vitals & I&Os Vital Signs Date Time Temp Pulse Resp B/P (MAP) Pulse Ox O2 Delivery O2 Flow Rate FiO2 09/15/19 10:52 36.6 75 16 132/71 97 Room Air General Appearance: No Apparent Distress, WD/WN Cardiovascular: Regular Rate, Rhythm, No Murmur Extremity: Other (right index finger with minimal erythema and edema, significantly improved) Neurologic/Psychiatric: Alert, Oriented x3 Hospital Course Pt is a 54yoCF with a PMH of mixed connective tissue disease on plaquenil and Xeljanz who was admitted after failing outpatient management of right finger cellulitis. She was started on IV Vanc and Clindamycin and did well. Symptoms gradually improved and she had an uneventful hospital stay. She was discharged home to continue on Clindamycin and follow up with her primary care physician. Labs (last 24 hrs) Laboratory Tests 09/15/19 05:34: White Blood Count 8.0, Red Blood Count 3.93L, Hemoglobin 11.2L, Hematocrit 36, Mean Corpuscular Volume 91, Mean Corpuscular Hemoglobin 28, Mean Corpuscular Hemoglobin Concent 31L, Red Cell Distribution Width 14.2, Platelet Count 226, Mean Platelet Volume 9.8, Sodium Level 141, Potassium Level 3.6, Chloride Level 110H, Carbon Dioxide Level 21, Anion Gap 10, Blood Urea Nitrogen 13, Creatinine 0.72, Estimat Glomerular Filtration Rate > 60, BUN/Creatinine Ratio 18, Glucose Level 80, Calcium Level 8.5 Patient resulted labs reviewed. Pending Labs Discussion & Recommendations Discharge Planning: >30 minutes discharge planning Discharge Home Medications: Active Scripts Active Reported Estrace Tablet (Estradiol) 2 Mg Tablet 1 Mg PO DAILY TAKES OF A 20MG TABLET Flonase Allergy Relief (Fluticasone Propionate) 9.9 Ml [place].susp 2 [place] NS DAILY PRN 2 SPRAYS PER NOSTRIL DAILY X 2 DAYS THEN 1 SPRAY DAILY Vitamin D3 (Cholecalciferol (Vitamin D3)) 10 Mcg Capsule 10 Mcg PO 5XD Selene-D 24 Hour Tablet (Fexofenadine/Pseudoephedrine) 1 Each Tab.er.24h 1 Ea PO DAILY PRN Hydrocodone-Acetamin 5-325 mg (Hydrocodone/Acetaminophen) 1 Each Tablet 1 Ea PO Q6H PRN Estradiol Tablet (Estradiol) 2 Mg Tablet 1 Applic VG MON,MON Citalopram HBr (Citalopram Hydrobromide) 40 Mg Tablet 40 Mg PO DAILY Clindamycin HCl 300 Mg Capsule 600 Mg PO TID TAKES 2 (300MG) CAPS THREE TIMES A DAY FILLED 09-11-2019 #60/10 DAY SUPPLY Mupirocin 22 Gm Oint...g. 1 Applic TOP BID APPLY TO AFFECTED FINGER Probiotic-10 10 Bill Cell Cap (Lactobacill 46/B.animal/Inulin) 1 Each Capsule 1 Each PO DAILY Super B Complex-Vitamin C (B Complex with Vitamin C) 1 Each Tablet 1 Each PO DAILY Calcium + Vitamin D Tablet (Calcium Carbonate/Vitamin D3) 1 Each Tablet 2 Each PO DAILY Biotin 10,000 Mcg Tab.rapdis 10,000 Mcg PO DAILY Multivitamin 1 Each Tablet 1 Each PO DAILY Magnesium (Magnesium Oxide) 400 Mg Tablet 400 Mg PO DAILY Benavides 3 Fish Oil Softgel (Benavides-3 Fatty Acids/Fish Oil) 1 Each Capsule.dr 1 Each PO DAILY REPORTS DOSE 2700 MG DAILY Tramadol HCl 50 Mg Tablet 100 Tab PO TID PRN Hydroxychloroquine Sulfate 200 Mg Tablet 200 Mg PO BID Gabapentin 300 Mg Capsule 900 Cap PO TID Trokendi Xr (Topiramate) 200 Mg Cap.er.24h 200 Mg PO DAILY Prednisone 5 Mg Tablet 7.5 Mg PO DAILY TAKE ONE AND A HALF 5 MG TABS DAILY FOR TOTAL DOSE OF 7.5 MG Lisinopril 5 Mg Tablet 5 Mg PO DAILY Tizanidine HCl 2 Mg Capsule 2 Mg PO HS Nifedipine ER (Nifedipine) 30 Mg Tab.er.24 30 Mg PO DAILY PRN Xeljanz Xr (Tofacitinib Citrate) 11 Mg Tab.er.24h 11 Mg PO DAILY Hydrocodone/Acetaminophen 5 MG/325 MG TAB (Hydrocodone/Acetaminophen) 1 Each Tablet 1-2 Tab PO Q4-6HR PRN Instructions to patient/family Please see electronic discharge instructions given to patient. Clinical Quality Measures DVT/VTE Risk/Contraindication: Risk Factor Score Per Nursin RFS Level Per Nursing on Admit: 1=Low/No VTE PPX Copy Copies To 1: SWEETIE BELL KATELYN M MD Sep 15, 2019 10:44
[2019-09-15 10:51] VITALS: BP 132/71
[2019-09-15 10:52] VITALS: BP 132/71
== END 2019-09-15 11:15 | disposition home or self-care (01) | DRG 603 ==
LOC: 4TH 11:25
PROVIDERS: ADMIT Family Medicine; ATTEND Family Medicine
DX: L03.011 Cellulitis of right finger (principal); S61.210A Laceration without foreign body of right index finger without damage to nail, initial encounter; M32.19 Other organ or system involvement in systemic lupus erythematosus; I10 Essential (primary) hypertension; M19.91 Primary osteoarthritis, unspecified site; F32.9 Major depressive disorder, single episode, unspecified; W26.8XXA Contact with other sharp object(s), not elsewhere classified, initial encounter; Z79.899 Other long term (current) drug therapy; Z88.0 Allergy status to penicillin; Z88.1 Allergy status to other antibiotic agents; Z88.5 Allergy status to narcotic agent; Z88.8 Allergy status to other drugs, medicaments and biological substances; Z88.2 Allergy status to sulfonamides
CPT/HCPCS: 36415; 73140; 80048; 80053; 80202; 85025; 85027; 85652; 86141

== ENCOUNTER → 2019-12-18 | Outpatient (CLI) | payer BC ==
[~2019-12-18] MED LIST changes: +CITA40TA11 PO; +CLIN300C11 PO; +ERGO400C PO; +ESTR2TAB VG; +FEXO1TAB43 PO; +FLUT9.9S NS; +HYDR-3812 PO; +MUPI22OI2 TOP
--- NOTE | 2019-12-18 12:25 | Diagnostic Imaging Report ---
Right 2nd digit at 1058 hours. INDICATION: Swelling. A single AP view of the hand and oblique and lateral views of the 2nd digit were obtained. FINDINGS: There is no fracture, dislocation or acute bony abnormality evident. There are small calcific densities in the soft tissues along the medial aspect of the PIP and DIP joint. These findings were evident on the prior study of 09/13/2019 and do not appear to have changed significantly. There does seem to be mild soft tissue edema about the PIP joint of both the 2nd and 3rd digits. There is no radiopaque foreign body identified. IMPRESSION: 1. There is no evidence for an acute bony abnormality. 2. There is mild soft tissue edema about the PIP joints of the 2nd and 3rd digits. Dictated by: Dictated on workstation # [id number]
== END ==
LOC: RAD 10:32 → LAB 10:32
PROVIDERS: ATTEND Family Medicine
DX: M25.441 Effusion, right hand (principal)
CPT/HCPCS: 73140

== ENCOUNTER → 2020-01-10 | Outpatient (CLI) | payer BC ==
[~2020-01-10] MED LIST changes: +GADOBUTROL 10 MMOL/10 ML (GADAVIST) VIAL IV ONE
[2020-01-10 09:34] LABS: ALANINE AMINOTRANSFERASE 21 U/L (0-55); ALBUMIN 4.4 GM/DL (3.2-4.5); ALKALINE PHOSPHATASE 39 U/L (40-136); BILIRUBIN,TOTAL 0.3 MG/DL (0.1-1.0); BUN/CREATININE RATIO 18; CALCIUM 9.8 MG/DL (8.5-10.1); CARBON DIOXIDE 26 MMOL/L (21-32); CHLORIDE 102 MMOL/L (98-107); CREATININE SERUM 0.87 MG/DL (0.60-1.30); GFR ESTIMATED > 60; GLUCOSE 84 MG/DL (70-105); POTASSIUM 3.5 MMOL/L (3.6-5.0); SODIUM 137 MMOL/L (135-145)
--- NOTE | 2020-01-10 14:12 | Diagnostic Imaging Report ---
PROCEDURE: MRI right upper extremity with and without contrast. TECHNIQUE: Multiplanar, multisequence pre and post contrast-enhanced MRI of the right upper extremity was accomplished. INDICATION: Pain and swelling in the index finger. COMPARISON: Right index finger radiographs from 12/18/2019. FINDINGS: Bones: There is no abnormal bone marrow edema signal or T1 hypointense marrow replacement that would indicate osteomyelitis. Additionally, there is no abnormal enhancement within the index finger osseous structure. On large field of view imaging, however, there is synovitis with enhancement at the index and thumb MCP joints. This probable marginal erosion within the thumb metacarpal head. Soft tissues: No enhancing tenosynovitis within the visualized structures. Intrinsic muscles of the hand is normal in bulk. No soft tissue edema, peripheral enhancing abscess. IMPRESSION: 1. No osteomyelitis within the index finger. 2. Active synovitis of the index and thumb MCP joints. At the thumb metacarpal head, there is likely a enhancing erosion. These features are suspicious for inflammatory arthritis. Correlation with serum inflammatory markers is suggested. Dictated by: Dictated on workstation # [id number]
== END ==
LOC: RAD 10:15
PROVIDERS: ATTEND Internal Medicine Rheumatology
DX: Z01.812 Encounter for preprocedural laboratory examination (principal); Z51.81 Encounter for therapeutic drug level monitoring; M06.4 Inflammatory polyarthropathy; M65.88 Other synovitis and tenosynovitis, other site
CPT/HCPCS: 36415; 73220; 80053

== ENCOUNTER → 2020-08-05 | Outpatient (CLI) | payer BC ==
[~2020-08-05] VITALS: Ht 68 cm; Wt 91.8 kg
[~2020-08-05] MED LIST changes: -CLIN300C11 PO; +CLIN300C12 PO; -GADOBUTROL 10 MMOL/10 ML (GADAVIST) VIAL IV ONE; +GADOBUTROL 7.5 MMOL/7.5 ML (GADAVIST) VIAL IV ONE; -HYDR-3812 PO; +IOHEXOL 240 MGI/ML 50 ML (OMNIPAQUE) VIAL IV ONE; -LISI-556 PO; +LISI-729 PO
--- NOTE | 2020-08-05 14:41 | Diagnostic Imaging Report ---
PROCEDURE: MRI upper extremity any joint with contrast right. TECHNIQUE: Multiplanar, multisequence contrast-enhanced MRI of the right upper extremity was accomplished. INDICATION: Fall with right shoulder injury. COMPARISON: None. FINDINGS: No acute fracture is seen in the right shoulder. Alignment is normal. There is contrast in the joint as well as in the subacromial subdeltoid bursa. There is a high-grade partial-thickness tear at the articular surface of the supraspinatus and infraspinatus tendons, which measures about 2.4 cm in width. There are small full-thickness components of this tear measuring about 5 mm at the posterior fibers of the supraspinatus, and 6 mm at the anterior supraspinatus. No muscular atrophy is seen. The teres minor tendon is intact. There is a complete tear of the subscapularis tendon which is retracted medially nearly to the glenohumeral joint. No definite atrophy is seen. The long head of the biceps tendon appears normal in course and signal. The glenoid labrum demonstrates a diminutive anterosuperior labrum, but no definite tear is seen. No paralabral cyst is seen. The acromion has an os acromiale and a concave undersurface. The coracoclavicular and coracoacromial ligaments appear intact. There is no significant edema demonstrated about the os acromiale. Mild fluid signal is seen in the anterior soft tissues from recent injection. IMPRESSION: 1. Complete mildly retracted tear of the subscapularis tendon. 2. Moderate-sized high-grade partial-thickness tear of the supraspinatus and infraspinatus tendons, with smaller full-thickness components. 3. Os acromiale. Dictated by: Dictated on workstation # [id number]
--- NOTE | 2020-08-05 15:53 | Diagnostic Imaging Report ---
INDICATION: Right shoulder pain. DETAILS OF THE PROCEDURE: The patient was brought to the procedure room and placed on the table in the supine position. The skin of the right shoulder was prepped and draped in the usual sterile fashion. A small amount of 1% lidocaine was utilized for local anesthesia. A 22-gauge needle was advanced into the right shoulder at the rotator interval. A 15 mL solution of iodinated contrast, normal saline, and gadolinium was injected under fluoroscopic observation. The needle was withdrawn and hemostasis was obtained. The patient tolerated the procedure well and was sent to MRI in satisfactory condition. 21 seconds of fluoroscopic time was utilized. Two images were obtained. IMPRESSION: Successful right shoulder injection of a gadolinium contrast solution using fluoroscopy. Dictated by: Dictated on workstation # [id number]
--- NOTE | 2020-08-05 18:00 | Diagnostic Imaging Report ---
PROCEDURE: MRI lumbar spine. TECHNIQUE: Multiplanar, multisequence MRI of the lumbar spine was performed without contrast. INDICATION: Fall resulted in an injury to the back and upper extremity. COMPARISON: Exam compared with lumbar MRI 07/11/2016. FINDINGS: Lumbar statures are normal. The alignment is anatomic and the marrow signal intensity unremarkable. No paraspinal mass, hemorrhage or fluid collection and no acute intrathecal abnormality. T12-L1: This level and disc unremarkable. There is no stenosis. L1-L2: This level and disc unremarkable. There is no stenosis. L2-L3: There is mild ligamentous thickening and facet arthrosis but no substantial canal, foraminal or recess stenosis. L3-L4: There is disc desiccation and stature loss with mild facet arthrosis. The disc bulge is eccentric to the left but only mild left and no substantial right foraminal stenosis present. There is a mild degree of canal stenosis. L4-L5: Improvements at this level have occurred in the interim. Previously, there was a large right paramedian disc protrusion resulting in impingement upon the lateral recess and neural foramen. The exiting L4 nerve is now unimpeded and the descending L5 nerve root also showed no stenosis. There is disc desiccation and stature loss with the right neural foramen only mildly narrowed and much improved from previous. L5-S1: There is no significant canal, foraminal or recess stenosis. IMPRESSION: Prior large right paramedian disc extrusion at L4-L5 resulted in severe foraminal and recess stenosis. There is only mild right foraminal narrowing present without impingement upon the exiting or descending nerve roots. No fracture, malalignment or adverse development from the comparison study. Dictated by: Dictated on workstation # [id number]
== END ==
LOC: RAD 12:48
PROVIDERS: ATTEND Orthopaedic Surgery
DX: S46.011A Strain of muscle(s) and tendon(s) of the rotator cuff of right shoulder, initial encounter (principal); M51.16 Intervertebral disc disorders with radiculopathy, lumbar region; M48.061 Spinal stenosis, lumbar region without neurogenic claudication
CPT/HCPCS: 23350; 72148; 73040; 73222

== ENCOUNTER → 2020-10-22 | Outpatient (CLI) | payer BC ==
[~2020-10-22] MED LIST changes: -GADOBUTROL 7.5 MMOL/7.5 ML (GADAVIST) VIAL IV ONE; -IOHEXOL 240 MGI/ML 50 ML (OMNIPAQUE) VIAL IV ONE
--- NOTE | 2020-10-22 13:25 | Diagnostic Imaging Report ---
INDICATION: Cough PA and lateral views of the chest obtained with comparison made study of 12/25/2013. FINDINGS: Heart size and pulmonary vascularity are within normal limits, and the lungs are clear, bilaterally. IMPRESSION: Unremarkable chest. Dictated by: Dictated on workstation # [id number]
== END ==
LOC: RAD 12:11
PROVIDERS: ATTEND Family Medicine
DX: R05 Cough (principal)
CPT/HCPCS: 71046

== ENCOUNTER 2020-12-10 11:21 | Emergency (ER) | payer BC ==
[~2020-12-10] VITALS: Ht 172.7 cm; Wt 92.5 kg
[2020-12-10] MEDS ORDERED: NS IV 1000 ML 1,000 ML ONE (11:51)
[2020-12-10 11:58] LABS: BASOPHILS % (AUTO) 0 % (0-10); EOSINOPHILS # (AUTO) 0.1 10^3/uL (0.0-0.3); EOSINOPHILS % (AUTO) 1 % (0-10); HEMATOCRIT 39 % (35-52); HEMOGLOBIN 12.2 g/dL (11.5-16.0); LYMPHOCYTES # (AUTO) 0.9 10^3/uL (1.0-4.0); LYMPHOCYTES % (AUTO) 12 % (12-44); MEAN CORPUSCULAR HEMOGLOBIN 31 pg (25-34); MEAN CORPUSCULAR HGB CONC 32 g/dL (32-36); MEAN CORPUSCULAR VOLUME 96 fL (80-99); MONOCYTES # (AUTO) 0.5 10^3/uL (0.0-1.0); MONOCYTES % (AUTO) 6 % (0-12); NEUTROPHILS # (AUTO) 6.2 10^3/uL (1.8-7.8); NEUTROPHILS % (AUTO) 79 % (42-75); PLATELET COUNT 261 10^3/uL (130-400); WHITE BLOOD COUNT 7.9 10^3/uL (4.3-11.0)
[2020-12-10] MEDS ORDERED: NS IV 1000 ML 1,000 ML IV SCH (12:00)
--- NOTE | 2020-12-10 12:01 | ED General ---
General Stated Complaint: COVID + Source of Information: Patient Exam Limitations: No Limitations History of Present Illness Date Seen by Provider: Dec 10, 2020 Time Seen by Provider: 11:58 Initial Comments To ER with reports of fever shortness of breath and cough. She has general malaise and headache. Symptoms began 48 hours ago, she tested positive this morning at Dr. Bell's office. She has a nebulizer at home for some breathing issues that she has been having for the past couple of months and she would like a refill of some medication for that. She was vaccinated against Covid with 2 maternal vaccines in July of this year. She has discoid lupus and follows with the [facility] dermatology and rheumatology Timing/Duration: 1-2 Days Severity: Moderate Associated Systoms: Cough, Headaches Allergies and Home Medications Allergies Coded Allergies: Nipgrjt-Lyf-Dps Reductase Inhibitor (Verified Allergy, Mild, Diarrhea,Nausea, 12/10/20) azathioprine (Verified Allergy, Mild, Vomiting, 12/10/20) Cefadroxil Hydrate (Verified Allergy, Unknown, 12/10/20) Penicillins (Verified Allergy, Unknown, 12/10/20) iodine (Verified Allergy, Unknown, 12/10/20) meloxicam (Verified Allergy, Unknown, HIVES, 12/10/20) metronidazole (Verified Allergy, Unknown, Rash, 12/10/20) morphine (Verified Allergy, Unknown, 12/10/20) sulfamethoxazole (Verified Allergy, Unknown, 12/10/20) trimethoprim (Verified Allergy, Unknown, 12/10/20) Home Medications Albuterol Sulfate 2.5 Mg/3 Ml Vial.neb, 2.5 MG INH Q4H PRN for WHEEZING Prescribed by: BRYAN CORBIN on 12/10/20 1303 B Complex with Vitamin C 1 Each Tablet, 1 EACH PO DAILY, (Reported) Biotin 10,000 Mcg Tab.rapdis, 10,000 MCG PO DAILY, (Reported) Calcium Carbonate/Vitamin D3 1 Each Tablet, 2 EACH PO DAILY, (Reported) Cholecalciferol (Vitamin D3) 10 Mcg Capsule, 10 MCG PO 5XD, (Reported) Citalopram Hydrobromide 40 Mg Tablet, 40 MG PO DAILY, (Reported) Clindamycin HCl 300 Mg Capsule, 600 MG PO TID, (Reported) TAKES 2 (300MG) CAPS THREE TIMES A DAY FILLED 09-11-2019 #60/10 DAY SUPPLY Estradiol 2 Mg Tablet, 1 APPLIC VG MON,MON, (Reported) Estradiol 2 Mg Tablet, 1 MG PO DAILY, (Reported) TAKES OF A 20MG TABLET Fexofenadine/Pseudoephedrine 1 Each Tab.er.24h, 1 EA PO DAILY PRN for ALLERFY SYMPTOMS, (Reported) Fluticasone Propionate 9.9 Ml Victor.susp, 2 SPRAY NS DAILY PRN for CONGESTION, (Reported) 2 SPRAYS PER NOSTRIL DAILY X 2 DAYS THEN 1 SPRAY DAILY Gabapentin 300 Mg Capsule, 900 CAP PO TID, (Reported) Hydrocodone/Acetaminophen 1 Each Tablet, 1-2 TAB PO Q4-6HR PRN for PAIN-MODERATE (5-7), (Reported) Hydrocodone/Acetaminophen 1 Each Tablet, 1 EA PO Q6H PRN for PAIN-MODERATE (5- 7), (Reported) Hydroxychloroquine Sulfate 200 Mg Tablet, 200 MG PO BID, (Reported) Lactobacill 46/B.animal/Inulin 1 Each Capsule, 1 EACH PO DAILY, (Reported) Lisinopril 5 Mg Tablet, 5 MG PO DAILY, (Reported) Magnesium Oxide 400 Mg Tablet, 400 MG PO DAILY, (Reported) Multivitamin 1 Each Tablet, 1 EACH PO DAILY, (Reported) Mupirocin 22 Gm Oint...g., 1 APPLIC TOP BID, (Reported) APPLY TO AFFECTED FINGER Nifedipine 30 Mg Tab.er.24, 30 MG PO DAILY PRN for REYNAUDS, (Reported) [place]-3 Fatty Acids/Fish Oil 1 Each Capsule.dr, 1 EACH PO DAILY, (Reported) REPORTS DOSE 2700 MG DAILY Prednisone 5 Mg Tablet, 7.5 MG PO DAILY, (Reported) TAKE ONE AND A HALF 5 MG TABS DAILY FOR TOTAL DOSE OF 7.5 MG Tizanidine HCl 2 Mg Capsule, 2 MG PO HS, (Reported) Tofacitinib Citrate 11 Mg Tab.er.24h, 11 MG PO DAILY, (Reported) Topiramate 200 Mg Cap.er.24h, 200 MG PO DAILY, (Reported) Tramadol HCl 50 Mg Tablet, 100 TAB PO TID PRN for PAIN-MODERATE (5-7), (Reported) Patient Home Medication List Home Medication List Reviewed: Yes Review of Systems Review of Systems Constitutional: see HPI, chills, fever, malaise, weakness EENTM: see HPI Respiratory: cough Cardiovascular: no symptoms reported Genitourinary: no symptoms reported Musculoskeletal: no symptoms reported Skin: no symptoms reported Psychiatric/Neurological: No Symptoms Reported Hematologic/Lymphatic: No Symptoms Reported Immunological/Allergic: no symptoms reported Past Uypdhhs-Xxigbd-Xgekvz Hx Immunizations Up To Date Tetanus Booster (TDap): Less than 5yrs PED Vaccines UTD: Yes Seasonal Allergies Seasonal Allergies: No Past Medical History Surgeries: Yes (RIGHT ACL REPAIR, KNEE SCOPES, CSPINE SURGERY) Respiratory: No Cardiac: Yes (murmur- HOLE IN HEART) Neurological: Yes (HEMIPLEGIC MIGRAINES) Reproductive Disorders: No Female Reproductive Disorders: Ovarian Cyst W[employer] History: Hysterectomy Sexually Transmitted Disease: Yes (HISTORY-HPV) HIV/AIDS: No Gastrointestinal: Yes (microscopic colitis) Colitis Musculoskeletal: Yes Arthritis Endocrine: Yes Lupus Cancer: No Psychosocial: Yes Depression Integumentary: No Blood Disorders: No Adverse Reaction/Blood Tranf: No Family Medical History Family history: Asthma G8 SISTER Family history: Diabetes mellitus 19 FATHER Family history: Hypertension 19 FATHER 19 MOTHER G8 BROTHER G8 SISTER Family history: Thyroid disorder 19 FATHER Heart disease 19 MOTHER Hypercholesterolemia 19 FATHER 19 MOTHER G8 BROTHER G8 SISTER Myocardial infarction 19 FATHER Psychotic disorder G8 SISTER (GRAND MAL) Heart Disease, CAD Over 55 Years Old, Hypertension Physical Exam Vital Signs Vital Signs - First Documented 12/10/20 11:25 Temp 36.4 Pulse 82 Resp 18 B/P (MAP) 97/58 (71) Pulse Ox 99 O2 Delivery Room Air Capillary Refill : Height, Weight, BMI Height: 5'8.00" Weight: 184lbs. 0oz. 83.892302cl; 198.52 BMI Method:Stated General Appearance: No Apparent Distress, WD/WN, Other (No distress alert and oriented oxygen saturation 97-100% on room air) HEENT: PERRL/EOMI, TMs Normal Neck: Full Range of Motion, Normal Inspection Respiratory: No Accessory Muscle Use, No Respiratory Distress Cardiovascular: Regular Rate, Rhythm, Normal Peripheral Pulses Gastrointestinal: Normal Bowel Sounds, Non Tender, Soft Extremity: Normal Capillary Refill, Normal Inspection Neurologic/Psychiatric: Alert, Oriented x3 Skin: Normal Color, Warm/Dry Procedures/Interventions Suture Size: 4-0 Progress/Results/Core Measures Suspected Sepsis SIRS Temperature: Pulse: Respiratory Rate: Laboratory Tests 12/10/20 11:40: White Blood Count 7.9 Blood Pressure / Mean: Laboratory Tests 12/10/20 11:40: Creatinine 1.03, Platelet Count 261, Total Bilirubin 0.4 Results/Orders Lab Results Laboratory Tests Test 12/10/20 11:40 Range/Units White Blood Count 7.9 4.3-11.0 10^3/uL Red Blood Count 4.00 3.80-5.11 10^6/uL Hemoglobin 12.2 11.5-16.0 g/dL Hematocrit 39 35-52 % Mean Corpuscular Volume 96 80-99 fL Mean Corpuscular Hemoglobin 31 25-34 pg Mean Corpuscular Hemoglobin Concent 32 32-36 g/dL Red Cell Distribution Width 14.9 H 10.0-14.5 % Platelet Count 261 130-400 10^3/uL Mean Platelet Volume 9.0 9.0-12.2 fL Immature Granulocyte % (Auto) 2 % Neutrophils (%) (Auto) 79 H 42-75 % Lymphocytes (%) (Auto) 12 12-44 % Monocytes (%) (Auto) 6 0-12 % Eosinophils (%) (Auto) 1 0-10 % Basophils (%) (Auto) 0 0-10 % Neutrophils # (Auto) 6.2 1.8-7.8 10^3/uL Lymphocytes # (Auto) 0.9 L 1.0-4.0 10^3/uL Monocytes # (Auto) 0.5 0.0-1.0 10^3/uL Eosinophils # (Auto) 0.1 0.0-0.3 10^3/uL Basophils # (Auto) 0.0 0.0-0.1 10^3/uL Immature Granulocyte # (Auto) 0.1 0.0-0.1 10^3/uL D-Dimer < 0.27 0.00-0.49 UG/ML Sodium Level 135 135-145 MMOL/L Potassium Level 3.6 3.6-5.0 MMOL/L Chloride Level 101 98-107 MMOL/L Carbon Dioxide Level 23 21-32 MMOL/L Anion Gap 11 5-14 MMOL/L Blood Urea Nitrogen 14 7-18 MG/DL Creatinine 1.03 0.60-1.30 MG/DL Estimat Glomerular Filtration Rate 56 BUN/Creatinine Ratio 14 Glucose Level 100 70-105 MG/DL Calcium Level 9.1 8.5-10.1 MG/DL Corrected Calcium 9.0 8.5-10.1 MG/DL Total Bilirubin 0.4 0.1-1.0 MG/DL Aspartate Amino Transf (AST/SGOT) 18 5-34 U/L Alanine Aminotransferase (ALT/SGPT) 23 0-55 U/L Alkaline Phosphatase 46 40-136 U/L C-Reactive Protein High Sensitivity 4.93 H 0.00-0.50 MG/DL Total Protein 6.9 6.4-8.2 GM/DL Albumin 4.1 3.2-4.5 GM/DL Procalcitonin 0.08 <0.10 NG/ML My Orders Orders - BRYAN CORBIN APRN Cbc With Automated Diff (12/10/20 11:42) Hs C Reactive Protein (12/10/20 11:42) Procalcitonin (Pct) (12/10/20 11:42) Comprehensive Metabolic Panel (12/10/20 11:42) Chest 1 View, Ap/Pa Only (12/10/20 11:42) Fibrin Degradation Products (12/10/20 11:42) Ed Iv/Invasive Line Start (12/10/20 11:42) Ns Iv 1000 Ml (Sodium Chloride 0.9%) (12/10/20 11:51) Vital Signs/I&O 12/10/20 11:25 Temp 36.4 Pulse 82 Resp 18 B/P (MAP) 97/58 (71) Pulse Ox 99 O2 Delivery Room Air Capillary Refill : Departure Communication (Admissions) NAME: ROB CASE MED REC#: [id number] PT STATUS: REG ER : 1965 PHYSICIAN: BRYAN CORBIN APRN ADMIT DATE: 12/10/20/ER Draft Date of Exam:12/10/20 CHEST 1 VIEW, AP/PA ONLY INDICATION: COVID COMPARISON: 10/22/2020 FINDINGS: The lungs are clear and normal. No failure, effusion or pneumothorax. IMPRESSION: Stable normal frontal chest x-ray. Report was faxed to [facility] by bogdan at 12:54PM. Dictated on workstation # [id number] Dict: 12/10/20 1235 Trans: 12/10/20 1255 BOGDAN [id number] Interpreted by: AFUA ROMAN Electronically signed by: I discussed with her the emergency use authorization of Regeneron, alternatives to this and risks of allergic reaction and other unknown side effects. She would like to proceed with using this. Impression Primary Impression: COVID-19 Disposition: 01 HOME, SELF-CARE Condition: Stable Departure-Patient Inst. Decision time for Depature: 13:00 Referrals: MAMADOU BELL DO (PCP/Family) Primary Care Physician Patient Instructions: REGEN-COV (casirivimab and imdevimab) FDA Fact Sheet, COVID-19 After You Have Been Vaccinated Add. Discharge Instructions: Scheduling department will call you tomorrow with a time to arrive for your Regeneron infusion. Scripts Budesonide (Pulmicort Flexhaler) 90 Mcg Aer.pow.ba 90 MCG IH BID, #1 EA Prov: BRYAN CORBIN APRN 12/10/20 Ondansetron (Ondansetron Odt) 8 Mg Tab.rapdis 8 MG PO Q6H PRN for NAUSEA/VOMITING, #10 TAB Prov: BRYAN CORBIN APRN 12/10/20 Albuterol Sulfate (Albuterol Sulfate) 2.5 Mg/3 Ml Vial.neb 2.5 MG INH Q4H PRN for WHEEZING, #50 EA 1 Refill Prov: BRYAN CORBIN APRN 12/10/20 BRYAN CORBIN APRN Dec 10, 2020 12:01
[2020-12-10 12:08] LABS: ALBUMIN 4.1 GM/DL (3.2-4.5)
[2020-12-10 12:09] LABS: POTASSIUM 3.6 MMOL/L (3.6-5.0)
[2020-12-10 12:10] LABS: CALCIUM 9.1 MG/DL (8.5-10.1)
[2020-12-10 12:11] LABS: TOTAL PROTEIN 6.9 GM/DL (6.4-8.2)
[2020-12-10 12:13] LABS: BILIRUBIN,TOTAL 0.4 MG/DL (0.1-1.0)
[2020-12-10 12:15] LABS: CREATININE SERUM 1.03 MG/DL (0.60-1.30)
--- NOTE | 2020-12-10 12:55 | Diagnostic Imaging Report ---
INDICATION: COVID COMPARISON: 10/22/2020 FINDINGS: The lungs are clear and normal. No failure, effusion or pneumothorax. IMPRESSION: Stable normal frontal chest x-ray. Report was faxed to [facility] by paulo at 12:54PM. Dictated by: Dictated on workstation # [id number]
[2020-12-10 13:00] VITALS: BP 104/62
[2020-12-10] MEDS ORDERED: ALBU2.5V4 INH (13:03)
[2020-12-10] MEDS ORDERED: ONDA8TAB13 PO (13:22)
[2020-12-10] MEDS ORDERED: BUDE90AE2 IH (13:22)
== END 2020-12-10 13:00 | disposition home or self-care (01) ==
LOC: EDUNIT# 11:21 → ER 11:23
DX: U07.1 COVID-19 (principal); F32.9 Major depressive disorder, single episode, unspecified; Z79.52 Long term (current) use of systemic steroids; Z79.899 Other long term (current) drug therapy
CPT/HCPCS: 36415; 71045; 80053; 84145; 85025; 85379; 86141

== ENCOUNTER 2020-12-11 10:46 | Outpatient (CLI) | payer BC ==
[~2020-12-11] VITALS: Ht 175.3 cm; Wt 92.7 kg
[2020-12-11 10:44] VITALS: BP 111/52
[~2020-12-11 10:46] MED LIST changes: +ALBU2.5V4 INH; +BUDE90AE2 IH; +CASIRIVIMAB/IMDEVIMAB 1,200 MG in NS (IVPB) 250 ML IV ONE; +EPINEPHrine INJECTION 1 MG/ML AMP IM PRN; +ONDA8TAB13 PO; +diphenhydrAMINE 50 MG/ML INJ (BENADRYL) IV PRN
[2020-12-11 12:39] VITALS: BP 114/62
== END 2020-12-11 12:59 ==
LOC: INFUSION 10:46
PROVIDERS: ATTEND Nurse Practitioner Family
DX: Z23 Encounter for immunization (principal); U07.1 COVID-19

== ENCOUNTER → 2021-02-15 | Outpatient (CLI) | payer BC ==
[~2021-02-15] MED LIST changes: -CASIRIVIMAB/IMDEVIMAB 1,200 MG in NS (IVPB) 250 ML IV ONE; -EPINEPHrine INJECTION 1 MG/ML AMP IM PRN; -diphenhydrAMINE 50 MG/ML INJ (BENADRYL) IV PRN
== END ==
LOC: CARD 12:00
PROVIDERS: ATTEND Family Medicine
DX: R00.2 Palpitations (principal); R01.1 Cardiac murmur, unspecified
CPT/HCPCS: 93306

== ENCOUNTER → 2021-03-19 | Outpatient (CLI) | payer BC ==
[~2021-03-19] MED LIST changes: +CLIN-144 PO; -CLIN300C12 PO; -ESTR2TAB VG; +ESTR2TAB3 VG
--- NOTE | 2021-03-19 16:26 | Diagnostic Imaging Report ---
INDICATION: Screening. EXAMINATION: Digital mammogram bilateral screening. 3D tomographic images were obtained and reviewed. The current study was also evaluated with a Computer Aided Detection (CAD) system. COMPARISON: This study was compared to the prior exams of 10/04/2018 and 02/15/2016. At this time there are no current complaints. FINDINGS: The fibroglandular tissue in both breasts is heterogeneously dense. This does limit the sensitivity of this exam. Overall, there does not appear to have been any significant change when compared to the prior study. No primary or secondary sign of malignancy is noted. IMPRESSION: There is no radiographic evidence for malignancy. ACR BI-RADS Category 1: Negative. Result letter will be mailed to the patient. Note: At least 10% of breast cancer is not imaged by mammography. Dictated on workstation # [id number]
== END ==
LOC: RAD 11:00
PROVIDERS: ATTEND Obstetrics & Gynecology
DX: Z12.31 Encounter for screening mammogram for malignant neoplasm of breast (principal)
CPT/HCPCS: 77063; 77067

== ENCOUNTER → 2021-03-24 | Outpatient (CLI) | payer BC ==
--- NOTE | 2021-03-24 13:43 | Diagnostic Imaging Report ---
INDICATION: Inflammatory polyarthritis. TIME OF EXAM: 1:00 PM. TECHNIQUE/COMPARISON: AP, odontoid, and both oblique as well as lateral views of the cervical spine were obtained. Flexion and extension views of the cervical spine were also obtained. FINDINGS: There is an anterior plate and screws transfixing the C5 through C7 levels. There is minimal anterolisthesis of C4 on C5. There appears to be some anterolisthesis of C3 on C4 during flexion maneuver which corrects during extension. No definite motion at any other level is seen. The prevertebral tissues are normal. The odontoid is intact. No fractures are seen. There is multilevel spondylosis. IMPRESSION: Postop changes of ACDF from C5 through C7. There appears to be some motion at the C3-C4 level during flexion maneuver. Dictated by: Dictated on workstation # [id number]
== END ==
LOC: RAD 12:21
PROVIDERS: ATTEND Internal Medicine Rheumatology
DX: Z01.818 Encounter for other preprocedural examination (principal); M06.4 Inflammatory polyarthropathy
CPT/HCPCS: 72052

== ENCOUNTER 2021-06-27 16:21 | Emergency (ER) | payer BC ==
[~2021-06-27] VITALS: Ht 172.7 cm; Wt 83.4 kg
[~2021-06-27 16:21] MED LIST changes: -CITA40TA11 PO; +CITA40TA13 PO; -LISI-729 PO; +LISI5TAB20 PO
[2021-06-27 16:30] VITALS: BP 134/71
--- NOTE | 2021-06-27 16:40 | ED Upper Extremity ---
General Chief Complaint: Upper Extremity Stated Complaint: FELL ON ICE ON HURT R SHOULDER. SURGERY APR 06 Source: patient Exam Limitations: no limitations History of Present Illness Date Seen by Provider: Jun 27, 2021 Time Seen by Provider: 16:36 Initial Comments To ER with right shoulder pain after a fall landing directly on it this morning at 8 AM as well as right anterior knee pain. No other injury. Her right arm is in a sling following subscapularis repair April [address] BASHIR. She had been pain-free until today. Onset: just prior to arrival Severity: moderate Pain/Injury Location: right shoulder Method of Injury: unknown Modifying Factors: Worse With Movement Allergies and Home Medications Allergies Coded Allergies: Amtussc-Agr-Rwd Reductase Inhibitor (Verified Allergy, Mild, Diarrhea,Nausea, 12/10/20) azathioprine (Verified Allergy, Mild, Vomiting, 12/10/20) Cefadroxil Hydrate (Verified Allergy, Unknown, 12/10/20) Penicillins (Verified Allergy, Unknown, 12/10/20) iodine (Verified Allergy, Unknown, 12/10/20) meloxicam (Verified Allergy, Unknown, HIVES, 12/10/20) metronidazole (Verified Allergy, Unknown, Rash, 12/10/20) morphine (Verified Allergy, Unknown, 12/10/20) sulfamethoxazole (Verified Allergy, Unknown, 12/10/20) trimethoprim (Verified Allergy, Unknown, 12/10/20) Patient Home Medication List Home Medication List Reviewed: Yes Albuterol Sulfate (Albuterol Sulfate) 2.5 Mg/3 Ml Vial.neb, 2.5 MG INH Q4H PRN for WHEEZING Prescribed by: BRYAN CORBIN on 12/10/20 1303 B Complex with Vitamin C (Super B Complex-Vitamin C) 1 Each Tablet, 1 EACH PO DAILY, (Reported) Entered as Reported by: KAHLIL LITTLE on 09/11/19 1452 Biotin (Biotin) 10,000 Mcg Tab.rapdis, 10,000 MCG PO DAILY, (Reported) Entered as Reported by: KAHLIL LITTLE on 09/11/19 1452 Budesonide (Pulmicort Flexhaler) 90 Mcg Aer.pow.ba, 90 MCG IH BID Prescribed by: BRYAN CORBIN on 12/10/20 1322 Calcium Carbonate/Vitamin D3 (Calcium + Vitamin D Tablet) 1 Each Tablet, 2 EACH PO DAILY, (Reported) Entered as Reported by: KAHLIL LITTLE on 09/11/19 145 Cholecalciferol (Vitamin D3) (Vitamin D3) 10 Mcg Capsule, 10 MCG PO 5XD, (Reported) Entered as Reported by: CASSIE PRETTY on 09/12/19 153 Citalopram Hydrobromide (Citalopram HBr) 40 Mg Tablet, 40 MG PO DAILY, (Reported) Entered as Reported by: CASSIE PRETTY on 09/12/19 153 Clindamycin HCl (Clindamycin HCl) 300 Mg Capsule, 600 MG PO TID, (Reported) Entered as Reported by: CASSIE PRETTY on 09/12/19 153 Estradiol (Estradiol Tablet) 2 Mg Tablet, 1 APPLIC VG MON,MON, (Reported) Entered as Reported by: CASSIE PRETTY on 09/12/19 153 Estradiol (Estrace Tablet) 2 Mg Tablet, 1 MG PO DAILY, (Reported) Entered as Reported by: CASSIE PRETTY on 09/12/19 154 Fexofenadine/Pseudoephedrine (Selene-D 24 Hour Tablet) 1 Each Tab.er.24h, 1 EA PO DAILY PRN for ALLERFY SYMPTOMS, (Reported) Entered as Reported by: CASSIE PRETTY on 09/12/191536 Fluticasone Propionate (Flonase Allergy Relief) 9.9 Ml [place]ade[place].susp, 2 SPRAY NS DAILY PRN for CONGESTION, (Reported) Entered as Reported by: CASSIE PRETTY on 09/12/19 153 Gabapentin (Gabapentin) 300 Mg Capsule, 900 CAP PO TID, (Reported) Entered as Reported by: KAHLIL LITTLE on 09/11/19 145 Hydrocodone/Acetaminophen (Hydrocodone/Acetaminophen 5 MG/325 MG TAB) 1 Each Tablet, 1-2 TAB PO Q4-6HR PRN for PAIN-MODERATE (5-7), (Reported) Entered as Reported by: KAHLIL LITTLE on 09/11/19 1418 Hydrocodone/Acetaminophen (Hydrocodone-Acetamin 5-325 mg) 1 Each Tablet, 1 EA PO Q6H PRN for PAIN-MODERATE (5-7), (Reported) Entered as Reported by: CASSIE PRETTY on 09/12/19 153 Hydroxychloroquine Sulfate (Hydroxychloroquine Sulfate) 200 Mg Tablet, 200 MG PO BID, (Reported) Entered as Reported by: KAHLIL LITTLE on 09/11/19 145 Lactobacill 46/B.animal/Inulin (Probiotic-10 10 Bill Cell Cap) 1 Each Capsule, 1 EACH PO DAILY, (Reported) Entered as Reported by: KAHLIL LITTLE on 09/11/19 1452 Lisinopril (Lisinopril) 5 Mg Tablet, 5 MG PO DAILY, (Reported) Entered as Reported by: KAHLIL LITTLE on 09/11/19 1424 Magnesium Oxide (Magnesium) 400 Mg Tablet, 400 MG PO DAILY, (Reported) Entered as Reported by: KAHLIL LITTLE on 09/11/19 145 Multivitamin (Multivitamin) 1 Each Tablet, 1 EACH PO DAILY, (Reported) Entered as Reported by: KAHLIL LITTLE on 09/11/19 145 Mupirocin (Mupirocin) 22 Gm Oint...g., 1 APPLIC TOP BID, (Reported) Entered as Reported by: CASSIE PRETTY on 09/12/19 1537 Nifedipine (Nifedipine ER) 30 Mg Tab.er.24, 30 MG PO DAILY PRN for REYNAUDS, (Reported) Entered as Reported by: KAHLIL ILTTLE on 09/11/19 142 [place]-3 Fatty Acids/Fish Oil ([place] 3 Fish Oil Softgel) 1 Each Capsule.dr, 1 EACH PO DAILY, (Reported) Entered as Reported by: KAHLIL LITTLE on 09/11/19 1452 Ondansetron (Ondansetron Odt) 8 Mg Tab.rapdis, 8 MG PO Q6H PRN for NAUSEA/VOMITING Prescribed by: BRYAN CORBIN on 12/10/20 1322 Prednisone (Prednisone) 5 Mg Tablet, 7.5 MG PO DAILY, (Reported) Entered as Reported by: KAHLIL LITTLE on 09/11/19 1432 Tizanidine HCl (Tizanidine HCl) 2 Mg Capsule, 2 MG PO HS, (Reported) Entered as Reported by: KAHLIL LITTLE on 09/11/19 1424 Tofacitinib Citrate (Xeljanz Xr) 11 Mg Tab.er.24h, 11 MG PO DAILY, (Reported) Entered as Reported by: KAHLIL LITTLE on 09/11/19 1424 Topiramate (Trokendi Xr) 200 Mg Cap.er.24h, 200 MG PO DAILY, (Reported) Entered as Reported by: KAHLIL LITTLE on 09/11/19 1452 Tramadol HCl (Tramadol HCl) 50 Mg Tablet, 100 TAB PO TID PRN for PAIN-MODERATE (5-7), (Reported) Entered as Reported by: KAHLIL LITTLE on 09/11/19 1452 Review of Systems Constitutional: see HPI EENTM: see HPI Respiratory: no symptoms reported Cardiovascular: no symptoms reported Genitourinary: no symptoms reported Musculoskeletal: see HPI Skin: no symptoms reported Psychiatric/Neurological: No Symptoms Reported Past Ggnanvi-Nzflxn-Cfvaww Hx Immunizations Up To Date Tetanus Booster (TDap): Less than 5yrs PED Vaccines UTD: Yes Seasonal Allergies Seasonal Allergies: No Past Medical History Surgeries: Yes (RIGHT ACL REPAIR, KNEE SCOPES, CSPINE SURGERY) Respiratory: No Cardiac: Yes (murmur- HOLE IN HEART) Neurological: Yes (HEMIPLEGIC MIGRAINES) Reproductive Disorders: No 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 Sexually Transmitted Disease: Yes (HISTORY-HPV) HIV/AIDS: No Gastrointestinal: Yes (microscopic colitis) Colitis Musculoskeletal: Yes Arthritis Endocrine: Yes Lupus Cancer: No Psychosocial: Yes Depression Integumentary: No Blood Disorders: No Adverse Reaction/Blood Tranf: No Family Medical History Family history: Asthma G8 SISTER Family history: Diabetes mellitus 19 FATHER Family history: Hypertension 19 FATHER 19 MOTHER G8 BROTHER G8 SISTER Family history: Thyroid disorder 19 FATHER Heart disease 19 MOTHER Hypercholesterolemia 19 FATHER 19 MOTHER G8 BROTHER G8 SISTER Myocardial infarction 19 FATHER Psychotic disorder G8 SISTER (GRAND MAL) Heart Disease, CAD Over 55 Years Old, Hypertension Physical Exam Vital Signs Vital Signs - First Documented 06/27/21 16:30 Temp 37.0 Pulse 76 Resp 20 B/P (MAP) 134/71 (92) Pulse Ox 98 O2 Delivery Room Air Capillary Refill : Height, Weight, BMI Height: 5'8.00" Weight: 184lbs. 0oz. 83.329251tj; 31.00 BMI Method:Stated General Appearance: WD/WN, no apparent distress HEENT: PERRL/EOMI, normal ENT inspection Respiratory: no respiratory distress, no accessory muscle use Shoulder: normal inspection, limited ROM, pain, soft tissue tenderness Elbow/Forearm: normal inspection, non-tender Hand: normal inspection, non-tender Neurologic/Tendon: normal sensation, normal motor functions Neurologic/Psychiatric: alert, normal mood/affect, oriented x 3 Skin: normal color, warm/dry Right knee has minor ecchymosis over the lateral aspect. Procedures/Interventions Suture Size: 4-0 Progress/Results/Core Measures Results/Orders My Orders Orders - BRYAN CORBIN APRN Shoulder, Right, 3 Views (06/27/21 16:30) Knee, Right, 3 Views (06/27/21 16:35) Ibuprofen Tablet (Motrin Tablet) (06/27/21 16:45) Hydrocodone/Apap 5/325 Tablet (Lortab 5 (06/27/21 16:45) Medications Given in ED Current Medications Medications Dose Ordered Sig/Kelley Route Start Time Stop Time Status Last Admin Dose Admin Acetaminophen/ Hydrocodone Bitart 1 ea ONCE ONCE PO 06/27/21 16:45 06/27/21 16:46 DC 06/27/21 16:57 1 EA Ibuprofen 800 mg ONCE ONCE PO 06/27/21 16:45 06/27/21 16:46 DC 06/27/21 16:57 800 MG Vital Signs/I&O 06/27/21 16:30 Temp 37.0 Pulse 76 Resp 20 B/P (MAP) 134/71 (92) Pulse Ox 98 O2 Delivery Room Air Departure Communication (Admissions) Family Conversation NAME: ROB CASE MED REC#: [id number] PT STATUS: REG ER : 1965 PHYSICIAN: BRYAN CORBIN APRN ADMIT DATE: 06/27/21/ER Draft Date of Exam:06/27/21 SHOULDER, RIGHT, 3 VIEWS INDICATION: Patient fell on ice. Complaining of shoulder pain. EXAMINATION: Right shoulder, 06/27/2021. FINDINGS: 3 views of the shoulder. There is a small osseous fragment inferior to the inferior border of the glenoid, age indeterminate. The remaining osseous structures appear intact. There are no dislocations. Visualized lung clear. Postoperative change seen in cervical spine. IMPRESSION: Age indeterminant osseous fragment inferior to the glenoid. Remaining shoulder unremarkable. Dictated on workstation # [id number] Dict: 06/27/211705 Trans: 06/27/211708 PJE [id number] Interpreted by: RENE MACHADO MD Electronically signed by: NAME: ROB CASE [facility] REC#: [id number] PT STATUS: REG ER : 1965 PHYSICIAN: BRYAN CORBIN APRN ADMIT DATE: 06/27/21/ER Draft Date of Exam:06/27/21 KNEE, RIGHT, 3 VIEWS INDICATION: Pain after fall. EXAMINATION: Right knee, 06/27/2021. FINDINGS: 3 views of the knee. There is a small suprapatellar effusion. Postoperative changes consistent with prior ACL repair unremarkable. Moderate patellofemoral narrowing and spurring is noted. 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 IMPRESSION: 1. Postoperative and chronic changes, as above. 2. Joint effusion. Dictated on workstation # [id number] Dict: 06/27/211702 Trans: 06/27/211705 PJE [id number] Interpreted by: RENE MACHADO MD Electronically signed by: Impression Primary Impression: Internal derangement of right shoulder Disposition: 01 HOME, SELF-CARE Condition: Stable Departure-Patient Inst. Decision time for Depature: 16:38 Referrals: MAMADOU RUBIO DO (PCP/Family) Primary Care Physician Patient Instructions: How to Use a Shoulder Sling Add. Discharge Instructions: 1. Return to ER for any concerns. Follow-up with Dr. Bashir this week. Call tomorrow to make an appointment to be seen. Ice pack to the shoulder, pain medication as directed. All discharge instructions reviewed with patient and/or family. Voiced understanding. Copy Copies To 1: DANNIE BASHIR MD, PETER J APRN Jun 27, 2021 16:40
[2021-06-27] MEDS ORDERED: HYDROcodone/APAP 5 MG/325 MG (LORTAB) TAB PO ONE (16:45)
[2021-06-27] MEDS ORDERED: IBUPROFEN 800 MG (MOTRIN) TAB PO ONE (16:45)
--- NOTE | 2021-06-27 17:07 | Diagnostic Imaging Report ---
INDICATION: Pain after fall. EXAMINATION: Right knee, 06/27/2021. FINDINGS: 3 views of the knee. There is a small suprapatellar effusion. Postoperative changes consistent with prior ACL repair unremarkable. Moderate patellofemoral narrowing and spurring is noted. 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 IMPRESSION: 1. Postoperative and chronic changes, as above. 2. Joint effusion. Dictated by: Dictated on workstation # [id number]
--- NOTE | 2021-06-27 17:09 | Diagnostic Imaging Report ---
INDICATION: Patient fell on ice. Complaining of shoulder pain. EXAMINATION: Right shoulder, 06/27/2021. FINDINGS: 3 views of the shoulder. There is a small osseous fragment inferior to the inferior border of the glenoid, age indeterminate. The remaining osseous structures appear intact. There are no dislocations. Visualized lung clear. Postoperative change seen in cervical spine. IMPRESSION: Age indeterminant osseous fragment inferior to the glenoid. Remaining shoulder unremarkable. Dictated by: Dictated on workstation # [id number]
== END 2021-06-27 17:27 | disposition home or self-care (01) ==
LOC: EDUNIT# 16:21 → ER 16:26
DX: M24.9 Joint derangement, unspecified (principal); F32.9 Major depressive disorder, single episode, unspecified; Z79.899 Other long term (current) drug therapy
CPT/HCPCS: 73030; 73562

== ENCOUNTER → 2022-03-09 | Outpatient (CLI) | payer BC ==
--- NOTE | 2022-03-09 11:31 | Diagnostic Imaging Report ---
PROCEDURE: MRI lumbar spine. TECHNIQUE: Multiplanar, multisequence MRI of the lumbar spine was performed without contrast. INDICATION: Fall in June with resultant progressive low back pain since that injury. COMPARISON: Exam is compared with lumbar MR 08/05/2020. FINDINGS: The lumbar vertebral statures are stable. There is no anterior or posterior listhesis. There is some chronic leftward convexity lower lumbar degenerative scoliotic curvature, unchanged. Some increased left-sided Modic type I endplate degenerative edema at the L2-L3 level as well as some more chronic fatty Modic type II changes at the L4-L5 endplates. An acute bony abnormality is not identified. The lower thoracic cord and conus are normal. No intrathecal pathology. No paravertebral mass, hemorrhage, or fluid collection. No findings of ligamentous disruption. T12-L1: Anterior greater than posterior osteophyte disc material results in no stenosis. L2-L3: There is progressive disc desiccation, stature loss, bulge, and endplate osteophytes. Disc material is asymmetric to the left and results in moderate severity of left foraminal narrowing, progressed, as well as increased mild canal stenosis. There is thickening of the ligamenta flava and facet arthrosis. There is at least mild narrowing of the left lateral recess, also increased. L3-L4: There is mild thickening of the ligamenta flava, facet arthrosis, disc bulge, and endplate osteophytes. The findings result in a mild degree of spinal canal and mild left greater than right foraminal narrowing. L4-L5: There is facet arthrosis. There is thickened ligamenta flava. There is disc desiccation and endplate spurring. No substantial canal stenosis, however. There is increased [id number] right and mild left neural foraminal narrowing. L5-S1: There is facet arthrosis, but no substantial canal, foraminal, or recess stenosis. IMPRESSION: Disc displacement and endplate spurs have progressed at multiple levels with increased multilevel foraminal stenoses, detailed above. No high-grade canal stenosis. No acute bony pathology. No post-traumatic sequelae identified. Dictated by: Dictated on workstation # [id number]
--- NOTE | 2022-03-09 13:35 | Diagnostic Imaging Report ---
INDICATION: Chronic low back pain. Comparison with 03/09/2022 MRI. FINDINGS: 2 views. There is a straightening of the normal lordotic curve. There is very mild anterolisthesis of L4 on L5. There is multilevel degenerative disc disease with loss of disc space height. There are sclerotic Modic endplate changes L4-L5 with hypertrophic lipping. There is a mild widening of the disc space at L2-L3 and L3-L4 on the extension views. Alignment remains unchanged. IMPRESSION: Flexion and extension views show mild motion with widening of the disks at L2-L3 and L3-L4. Dictated by: Dictated on workstation # [id number]
== END ==
LOC: RAD 08:15
PROVIDERS: ATTEND Pain Medicine Interventional Pain Medicine
DX: M47.26 Other spondylosis with radiculopathy, lumbar region (principal); M47.817 Spondylosis without myelopathy or radiculopathy, lumbosacral region; M51.16 Intervertebral disc disorders with radiculopathy, lumbar region; M48.061 Spinal stenosis, lumbar region without neurogenic claudication
CPT/HCPCS: 72100; 72148

== ENCOUNTER 2022-12-15 20:03 | Emergency (ER) | payer BC ==
[~2022-12-15] VITALS: Ht 172.2 cm; Wt 80.2 kg
[~2022-12-15 20:03] MED LIST changes: +HYDR200T71 PO
[2022-12-15] MEDS ORDERED: LIDOCAINE 1% INJ 10 ML VIAL INJ ONE (20:15)
[2022-12-15] MEDS ORDERED: CEPH500T PO (20:27)
--- NOTE | 2022-12-15 20:27 | ED Upper Extremity ---
General Chief Complaint: Laceration Stated Complaint: LEFT INDEX FINGER LAC Source: patient Exam Limitations: no limitations History of Present Illness Date Seen by Provider: Dec 15, 2022 Time Seen by Provider: 20:23 Initial Comments Patient is a 57-year-old female who presents ED with a laceration to her left index finger and abrasion to her left palmar hand. This occurred around 730. She was removing a drill bit from a drill when she caught her finger on the drill resulting in a superficial 1 similar laceration to the palmar side the left index finger. Small abrasion to the left palmar hand. Bleeding controlled with direct pressure. Unclear if she is up-to-date on her tetanus within the past 5 years but has received a tetanus shot. History of cellulitis infection from paper cut in the past secondary to her autoimmune diseases. She did clean out the finger at home with water. Denies of any decreased range of motion. Denies fever, chills, nausea, vomiting, diarrhea. Allergies and Home Medications Allergies Coded Allergies: Rxxigaf-GUB-UbG Reductase Inhibitor (Verified Allergy, Mild, Diarrhea,Nausea, 12/10/20) azathioprine (Verified Allergy, Mild, Vomiting, 12/10/20) Cefadroxil Hydrate (Verified Allergy, Unknown, 12/10/20) Penicillins (Verified Allergy, Unknown, 12/10/20) ezetimibe (Verified Allergy, Unknown, 12/15/22) fenofibrate (Verified Allergy, Unknown, 12/15/22) iodine (Verified Allergy, Unknown, 12/10/20) meloxicam (Verified Allergy, Unknown, HIVES, 12/10/20) metronidazole (Verified Allergy, Unknown, Rash, 12/10/20) morphine (Verified Allergy, Unknown, 12/10/20) sulfamethoxazole (Verified Allergy, Unknown, 12/10/20) trimethoprim (Verified Allergy, Unknown, 12/10/20) Patient Home Medication List Home Medication List Reviewed: Yes Albuterol Sulfate (Albuterol Sulfate) 2.5 Mg/3 Ml Vial.neb, 2.5 MG INH Q4H PRN for WHEEZING Prescribed by: BRYAN CORBIN on 12/10/20 1303 B Complex with Vitamin C (Super B Complex-Vitamin C) 1 Each Tablet, 1 EACH PO DAILY, (Reported) Entered as Reported by: KAHLIL LITTLE on 09/11/19 1452 Biotin (Biotin) 10,000 Mcg Tab.rapdis, 10,000 MCG PO DAILY, (Reported) Entered as Reported by: KAHLIL LITTLE on 09/11/19 145 Budesonide (Pulmicort Flexhaler) 90 Mcg Aer.pow.ba, 90 MCG IH BID Prescribed by: BRYAN CORBIN on 12/10/20 1322 Calcium Carbonate/Vitamin D3 (Calcium + Vitamin D Tablet) 1 Each Tablet, 2 EACH PO DAILY, (Reported) Entered as Reported by: KAHLIL LITTLE on 09/11/19 145 Cephalexin (Cephalexin) 500 Mg Tablet, 500 MG PO QID Prescribed by: ROSALBA PATEL on 12/15/222026 Cholecalciferol (Vitamin D3) (Vitamin D3) 10 Mcg Capsule, 10 MCG PO 5XD, (Reported) Entered as Reported by: CASSIE PRETTY on 09/12/19 153 Citalopram Hydrobromide (Citalopram HBr) 40 Mg Tablet, 40 MG PO DAILY, (Reported) Entered as Reported by: CASSIE PRETTY on 09/12/19 153 Clindamycin HCl (Clindamycin HCl) 300 Mg Capsule, 600 MG PO TID, (Reported) Entered as Reported by: CASSIE PRETTY on 09/12/19 153 Estradiol (Estradiol Tablet) 2 Mg Tablet, 1 APPLIC VG MON,MON, (Reported) Entered as Reported by: CASSIE PRETTY on 09/12/19 153 Estradiol (Estrace Tablet) 2 Mg Tablet, 1 MG PO DAILY, (Reported) Entered as Reported by: CASSIE PRETTY on 09/12/19 154 Fexofenadine/Pseudoephedrine (Selene-D 24 Hour Tablet) 1 Each Tab.er.24h, 1 EA PO DAILY PRN for ALLERFY SYMPTOMS, (Reported) Entered as Reported by: CASSIE PRETTY on 09/12/19 153 Fluticasone Propionate (Flonase Allergy Relief) 9.9 Ml Mccomb.susp, 2 SPRAY NS DAILY PRN for CONGESTION, (Reported) Entered as Reported by: CASSIE PRETTY on 09/12/19 153 Gabapentin (Gabapentin) 300 Mg Capsule, 900 CAP PO TID, (Reported) Entered as Reported by: KAHLIL LITTLE on 09/11/19 1452 Hydrocodone/Acetaminophen (Hydrocodone/Acetaminophen 5 MG/325 MG TAB) 1 Each Tablet, 1-2 TAB PO Q4-6HR PRN for PAIN-MODERATE (5-7), (Reported) Entered as Reported by: KAHLIL LITTLE on 09/11/19 1418 Hydrocodone/Acetaminophen (Hydrocodone-Acetamin 5-325 mg) 1 Each Tablet, 1 EA PO Q6H PRN for PAIN-MODERATE (5-7), (Reported) Entered as Reported by: CASSIE PRETTY on 09/12/19 1537 Hydroxychloroquine Sulfate (Hydroxychloroquine Sulfate) 200 Mg Tablet, 200 MG PO BID, (Reported) Entered as Reported by: KAHLIL LITTLE on 09/11/19 1452 Lactobacill 46/B.animal/Inulin (Probiotic-10 10 Bill Cell Cap) 1 Each Capsule, 1 EACH PO DAILY, (Reported) Entered as Reported by: KAHLIL LITTLE on 09/11/19 145 Lisinopril (Lisinopril) 5 Mg Tablet, 5 MG PO DAILY, (Reported) Entered as Reported by: KAHLIL LITTLE on 09/11/19 1424 Magnesium Oxide (Magnesium) 400 Mg Tablet, 400 MG PO DAILY, (Reported) Entered as Reported by: KAHLIL LITTLE on 09/11/19 145 Multivitamin (Multivitamin) 1 Each Tablet, 1 EACH PO DAILY, (Reported) Entered as Reported by: KAHLIL LITTLE on 09/11/19 1452 Mupirocin (Mupirocin) 22 Gm Oint...g., 1 APPLIC TOP BID, (Reported) Entered as Reported by: CASSIE PRETTY on 09/12/19 1537 Nifedipine (Nifedipine ER) 30 Mg Tab.er.24, 30 MG PO DAILY PRN for REYNAUDS, (Reported) Entered as Reported by: KAHLIL LITTLE on 09/11/19 1424 Table Grove-3 Fatty Acids/Fish Oil (Table [place] 3 Fish Oil Softgel) 1 Each Capsule.dr, 1 EACH PO DAILY, (Reported) Entered as Reported by: KAHLIL LITTLE on 09/11/19 1452 Ondansetron (Ondansetron Odt) 8 Mg Tab.rapdis, 8 MG PO Q6H PRN for NAUSEA/VOMITING Prescribed by: BRYAN CORBIN on 12/10/20 1322 Prednisone (Prednisone) 5 Mg Tablet, 7.5 MG PO DAILY, (Reported) Entered as Reported by: KAHLIL LITTLE on 09/11/19 1432 Tizanidine HCl (Tizanidine HCl) 2 Mg Capsule, 2 MG PO HS, (Reported) Entered as Reported by: KAHLIL LITTLE on 09/11/19 1424 Tofacitinib Citrate (Xeljanz Xr) 11 Mg Tab.er.24h, 11 MG PO DAILY, (Reported) Entered as Reported by: KAHLIL LITTLE on 09/11/19 1424 Topiramate (Trokendi Xr) 200 Mg Cap.er.24h, 200 MG PO DAILY, (Reported) Entered as Reported by: KAHLIL LITTLE on 09/11/19 1452 Tramadol HCl (Tramadol HCl) 50 Mg Tablet, 100 TAB PO TID PRN for PAIN-MODERATE (5-7), (Reported) Entered as Reported by: KAHLIL LITTLE on 09/11/19 1452 Review of Systems Constitutional: No chills, No diaphoresis EENTM: No ear pain, No blurred vision Respiratory: No cough, No dyspnea on exertion Cardiovascular: No chest pain Gastrointestinal: No abdominal pain, No diarrhea, No nausea, No vomiting Genitourinary: No decreased output, No discharge Musculoskeletal: No back pain, No joint pain; muscle pain Skin: change in color All Other Systems Reviewed Negative Unless Noted: Yes Past Kreixnv-Kyaxdd-Lsdwbe Hx Immunizations Up To Date Tetanus Booster (TDap): Less than 5yrs PED Vaccines UTD: Yes First/Initial COVID19 Vaccinat: JULY 2019 Second COVID19 Vaccination Catarino: AUGUST 2019 Seasonal Allergies Seasonal Allergies: No Past Medical History Surgeries: Yes (RIGHT ACL REPAIR, KNEE SCOPES, CSPINE SURGERY) Respiratory: No Cardiac: Yes (murmur- HOLE IN HEART) Neurological: Yes (HEMIPLEGIC MIGRAINES) Reproductive Disorders: No 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 Sexually Transmitted Disease: Yes (HISTORY-HPV) HIV/AIDS: No Gastrointestinal: Yes (microscopic colitis) Colitis Musculoskeletal: Yes Arthritis Endocrine: Yes Lupus Cancer: No Psychosocial: Yes Depression Integumentary: No Blood Disorders: No Adverse Reaction/Blood Tranf: No Family Medical History Family history: Asthma G8 SISTER Family history: Diabetes mellitus 19 FATHER Family history: Hypertension 19 FATHER 19 MOTHER G8 BROTHER G8 SISTER Family history: Thyroid disorder 19 FATHER Heart disease 19 MOTHER Hypercholesterolemia 19 FATHER 19 MOTHER G8 BROTHER G8 SISTER Myocardial infarction 19 FATHER Psychotic disorder G8 SISTER (GRAND MAL) Heart Disease, CAD Over 55 Years Old, Hypertension Physical Exam Vital Signs Vital Signs - First Documented 12/15/22 20:12 Pulse 74 B/P (MAP) 144/82 (102) Pulse Ox 99 O2 Delivery Room Air Capillary Refill : Height, Weight, BMI Height: 5'8.00" Weight: 184lbs. 0oz. 83.119253od; 27.00 BMI Method:Stated General Appearance: WD/WN, no apparent distress HEENT: PERRL/EOMI, normal ENT inspection, TMs normal, pharynx normal Neck: non-tender, full range of motion, supple, normal inspection Cardiovascular: regular rate, rhythm, no edema, no gallop, no JVD Respiratory: chest non-tender, lungs clear, normal breath sounds, no respiratory distress, no accessory muscle use Gastrointestinal: normal bowel sounds, non tender, soft, no organomegaly Back: normal inspection, no CVA tenderness Shoulder: normal inspection, non-tender, no evidence of injury Elbow/Forearm: normal inspection, non-tender, no evidence of injury, Left Wrist: Yes normal inspection, Yes non-tender, Yes normal ROM Hand: normal ROM (Normal active range of motion left index finger, left PIP joint.), Left, laceration (1 cm laceration to left palmar index finger. Very minimal bleeding. Skin near approximation . 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 1 cm superficial laceration to left palmar index finger.) Procedures/Interventions Suture Size: 4-0 Progress/Results/Core Measures Results/Orders My Orders Orders - MARISSA SYLVESTER Lidocaine 1% Inj 10 Ml (Xylocaine 1% Inj (12/15/22 20:15) Cephalexin Capsule (Keflex Capsule) (12/15/22 20:30) Dipht,Pertuss(Acell),Tet Adult (Boostrix (12/15/22 20:45) Medications Given in ED Current Medications Medications Dose Ordered Sig/Kelley Route Start Time Stop Time Status Last Admin Dose Admin Cephalexin HCl 500 mg ONCE ONCE PO 12/15/22 20:30 12/15/22 20:31 DC 12/15/22 20:31 500 MG Diphtheria/ Tetanus/Acell Pertussis 0.5 ml ONCE ONCE IM 12/15/22 20:45 12/15/22 20:46 DC 12/15/22 20:46 0.5 ML Vital Signs/I&O 12/15/22 12/15/22 20:12 20:53 Pulse 74 74 B/P (MAP) 144/82 (102) 144/82 Pulse Ox 99 99 O2 Delivery Room Air Room Air Departure Communication (PCP) Differential diagnosis laceration, skin abrasion. Patient has a superficial laceration to her left index finger at the palmar side of the finger around 1 cm. Skin is near approximated. I Was able to apply a Steri-Strip with glue for approximation. Updated her tetanus. Neurovascular intact. She does have a small abrasion to the left palmar hand. Neosporin topical. History of cellulitis from previous paper cut. She reports history of autoimmune diseases that resulted in frequent infections. States that she was admitted. She did receive a dose of Keflex will discharge with Keflex. If increased redness or swelling to return back to ED. Return precaution were discussed. Impression Primary Impression: Finger laceration Disposition: 01 HOME, SELF-CARE Condition: Stable Departure-Patient Inst. Decision time for Depature: 20:26 Referrals: MAMADOU RUBIO DO (PCP/Family) Primary Care Physician Patient Instructions: Laceration Repair With Glue ED Add. Discharge Instructions: Take antibiotics as prescribed. If increased redness or swelling to return back to ED. All discharge instructions reviewed with patient and/or family. Voiced understanding. Scripts Cephalexin (Cephalexin) 500 Mg Tablet 500 MG PO QID for 7 Days, #28 TAB Prov: MARISSA SYLVESTER 12/15/22 MARISSA SYLVESTER Dec 15, 2022 20:27
[2022-12-15] MEDS ORDERED: CEPHALEXIN 250 MG CAPSULE PO ONE (20:30)
[2022-12-15] MEDS ORDERED: TETANUS,DIPTH,PERTUSS P/F (BOOSTRIX) 0.5 ML VIAL IM ONE (20:45)
[2022-12-15 20:53] VITALS: BP 144/82
== END 2022-12-15 20:53 | disposition home or self-care (01) ==
LOC: EDUNIT# 20:03 → ER 20:05
DX: S61.211A Laceration without foreign body of left index finger without damage to nail, initial encounter (principal); Z23 Encounter for immunization; Z88.0 Allergy status to penicillin; Z88.1 Allergy status to other antibiotic agents; Z88.2 Allergy status to sulfonamides; W29.8XXA Contact with other powered hand tools and household machinery, initial encounter
CPT/HCPCS: 12001; 90715

== ENCOUNTER → 2023-03-14 | Outpatient (CLI) | payer BC ==
[~2023-03-14] MED LIST changes: +CEPH500T PO
--- NOTE | 2023-03-14 10:49 | Diagnostic Imaging Report ---
INDICATION: Postmenopausal screening COMPARISON: 07/30/2019 FINDINGS: AP Spine L1-L4: [BMD (g/cm2): 1.322] [T-Score: 1.0] [Z-Score: 1.5] [BMD Previous: 1.478] [BMD % Change: -10.6*] LT Hip Neck: [BMD (g/cm2): 0.867] [T-Score: -1.2] [Z-Score: -0.5] LT Hip Total: [BMD (g/cm2):1.014] [T-Score:0.0] [Z-Score: 0.4] [BMD Previous: 1.045] [BMD % Change: -3.0] RT Hip Neck: [BMD (g/cm2):0.862] [T-Score:-1.3] [Z-Score:-0.5] RT Hip Total: [BMD (g/cm2):0.947] [T-score:-0.5] [Z-Score:-0.1] [BMD Previous:1.002] [BMD % Change:-5.5*] *Indicates significant change from prior examination based on 95% confidence level. World Health Organization criteria for BMD interpretation classify patients as Normal (T-score at or above -1.0), Osteopenic (T-score between -1.0 and -2.5) or Osteoporotic (T-score at or below -2.5). LIMITATIONS AND MODIFICATION: None. FRACTURE RISK (FRAX SCORE): The ten year probability of (%): Major Osteoporotic Fracture: [22.8] Hip Fracture: [0.9] IMPRESSION: 1. Normal bone mineral density. 2. Bone mineral density has decreased by a statistically significant amount, as detailed above. 3. See below National Osteoporosis Foundation guidelines on when to potentially initiate pharmacologic therapy. Based on the National Osteoporosis Foundation Guidelines, pharmacologic treatment should be initiated in any of the following, unless clinical conditions suggest otherwise: * Any patient with prior fragility fracture of the hip or vertebrae. A spine fracture indicates 5X risk for subsequent spine fracture and 2X risk for subsequent hip fracture. * Osteoporosis (T-score <-2.5). * Postmenopausal women and men age 50 and older with low bone mass/osteopenia (T-score between -1.0 and -2.5) by DXA and 10-year major osteoporotic fracture greater than 20% or a 10-year probability of hip fracture greater than 3%. These fracture risks are supplied above in the FRAX score, if applicable. * Clinician judgement and/or patient preferences may indicate treatment for people with 10-year fracture probabilities above or below these levels. Dictated by: Dictated on workstation # [id number]
--- NOTE | 2023-03-14 14:23 | Diagnostic Imaging Report ---
Indication: Routine screening. Comparison is made with prior mammogram 03/19/2021 and 10/04/2018. 2-D and 3-D bilateral screening mammography was performed with CAD. The current study was also evaluated with a Computer Aided Detection (CAD) system. Both breasts are heterogeneously dense, limiting the sensitivity of mammography. The parenchymal pattern is stable. No mass or malignant-appearing microcalcifications are identified. Axillae are unremarkable. IMPRESSION: BI-RADS Category 1 1. No mammographic features suspicious for malignancy are identified. ACR BI-RADS Category 1: Negative. Result letter will be mailed to the patient. Note: At least 10% of breast cancer is not imaged by mammography. Dictated by: Dictated on workstation # [id number]
== END ==
LOC: RAD 09:23
PROVIDERS: ATTEND Family Medicine
DX: Z12.31 Encounter for screening mammogram for malignant neoplasm of breast (principal); M81.0 Age-related osteoporosis without current pathological fracture; Z78.0 Asymptomatic menopausal state
CPT/HCPCS: 77063; 77067; 77080